=== PATIENT | female | born 1990 | race Caucasian/White ===

== ENCOUNTER 2016-12-29 20:45 | Emergency (ER) | payer MEDICAID ==
[~2016-12-29] VITALS: Ht 165.1 cm; Wt 62.0 kg
[~2016-12-29 20:45] MED LIST: ACET-1757 PO; ALBU8.5H3 INH; AMLO5TAB2 PO; AMLO5TAB4 PO; CLON2TAB2 PO; CYAN10005 PO; DULO60CA7 PO; FAMO-79 PO; FLUO20CA19 PO; FOLI-17 PO; FURO40TA6 PO; HYDR50CA PO; LACT20SO2 PO; LIDO700A5 TD; LISI-466 PO; LISI40TA PO; LORA-446 PO; MAG355OR15 PO; MAGN400T26 PO; MILK140C PO; MOME110A INH; MULT1TAB60 PO; NICO1PAT4 TD; ONDA4TAB10 PO; ONDA4TAB13 PO; OXYC-223 PO; OXYC1TAB8 PO; OXYC5TAB3 PO; PANT40TA3 PO; PANT40TA5 PO; PHOS250T3 PO; POTA20TA14 PO; SPIR100T PO; SUCR1TAB26 PO; THIA100T6 PO; TRAZ100T15 PO; TRAZ50TA18 PO; VITAMIN E PO; ZINC220C5 PO
[2016-12-29] MEDS ORDERED: ONDANSETRON 2MG/ML, 2ML IVPush ONE (21:00)
[2016-12-29] MEDS ORDERED: SODIUM CHLORIDE 0.9% 1,000ML IVBOLUS ONE ×2 (21:00→21:30)
[2016-12-29] MEDS ORDERED: FAMOTIDINE 20 MG/2 ML IVP ONE (21:00)
[2016-12-29] MEDS ORDERED: ONDANSETRON 2MG/ML, 2ML ONE (21:09)
[2016-12-29] MEDS ORDERED: FAMOTIDINE 20 MG/2 ML ONE (21:09)
[2016-12-29 21:17] LABS: HEMOGLOBIN 11.7 g/dL (11.7-16.4)
[2016-12-29 21:30] LABS: ASPARTATE AMINO TRANSFERASE 193 U/L (15-37); BLOOD UREA NITROGEN 5 mg/dL (7-18)
[2016-12-29] MEDS ORDERED: LORazepam 2 MG/ML, 1ML IVPush ONE (21:30)
[2016-12-29] MEDS ORDERED: MORPHINE SULFATE 4 MG/ML, 1ML IVPush PRN (21:30)
[2016-12-29] MEDS ORDERED: MORPHINE SULFATE 4 MG/ML, 1ML ONE (21:40)
[2016-12-29] MEDS ORDERED: LORazepam 2 MG/ML, 1ML ONE (21:41)
[2016-12-29] MEDS ORDERED: MAALOX/HYOSCYAMINE/LIDOCAINE 45 ML BOTTLE ONE (22:28)
[2016-12-29] MEDS ORDERED: MAALOX/HYOSCYAMINE/LIDOCAINE 45 ML BOTTLE PO ONE (22:30)
[2016-12-29 23:41] VITALS: BP 118/67
== END 2016-12-29 23:42 | disposition home or self-care (01) ==
LOC: ED 23:26
DX: K29.20 Alcoholic gastritis without bleeding (principal); F10.220 Alcohol dependence with intoxication, uncomplicated; E80.6 Other disorders of bilirubin metabolism; R74.9 Abnormal serum enzyme level, unspecified; I10 Essential (primary) hypertension; F10.20 Alcohol dependence, uncomplicated; Z90.49 Acquired absence of other specified parts of digestive tract
CPT/HCPCS: 36415; 80053; 80307; 81001; 83690; 84703; 85025; 96361; 96374; 96375; 99285; J2060; J2405; J7030; S0028

== ENCOUNTER 2017-01-17 13:15 | Inpatient (IN) | payer MEDICAID ==
[~2017-01-17] VITALS: Ht 165.1 cm; Wt 67.9 kg
[2017-01-17] MEDS ORDERED: SODIUM CHLORIDE 0.9% 1,000 ML IV ONE (13:50)
[2017-01-17] MEDS ORDERED: ONDANSETRON 2MG/ML, 2ML ONE ×3 (13:55→17:48)
[2017-01-17] MEDS ORDERED: LORazepam 2 MG/ML, 1ML ONE (13:56)
[2017-01-17] MEDS ORDERED: HYDR25CA PO (13:58)
[2017-01-17] MEDS ORDERED: HYDROmorphone 1 MG/ML, 1ML IV ONE ×3 (14:00→20:00)
[2017-01-17] MEDS ORDERED: LORazepam 2 MG/ML, 1ML IVPush ONE (14:00)
[2017-01-17] MEDS ORDERED: SODIUM CHLORIDE FLUSH 10ML SYR IVF ONE (14:00)
[2017-01-17] MEDS ORDERED: ONDANSETRON 2MG/ML, 2ML IVPush ONE ×2 (14:00→15:30)
[2017-01-17 14:35] LABS: BLOOD UREA NITROGEN 4 mg/dL (7-18)
[2017-01-17] MEDS ORDERED: HYDROmorphone 1 MG/ML, 1ML ONE ×3 (14:36→19:05)
[2017-01-17 14:41] LABS: ASPARTATE AMINO TRANSFERASE 395 U/L (15-37)
[2017-01-17 14:56] LABS: ANISOCYTOSIS 1+; MICROCYTOSIS 1+
[2017-01-17 16:05] LABS: HCG UR OBC PASS
[2017-01-17] MEDS ORDERED: LIDOCAINE 1%, 20ML ONE (17:45)
[2017-01-17] MEDS ORDERED: SODIUM BICARBONATE 4.2%, 5ML ONE (17:45)
[2017-01-17] MEDS ORDERED: OMNIPAQUE 350 MG/ML, 100ML BOTTLE ONE (18:52)
[2017-01-17] MEDS ORDERED: METRONIDAZOLE PMX 500MG/100ML 100 ML ONE (18:53)
[2017-01-17] MEDS ORDERED: CIPROFLOXACIN/PMX 400MG/200ML 200 ML ONE (18:53)
[2017-01-17] MEDS ORDERED: CIPROFLOXACIN/PMX 400MG/200ML 200 ML IV ONE (19:00)
[2017-01-17] MEDS ORDERED: METHYLNALTREXONE 12 MG/0.6 ML SQ ONE (19:00)
[2017-01-17] MEDS ORDERED: METRONIDAZOLE PMX 500MG/100ML 100 ML IV ONE (19:00)
[2017-01-17] MEDS: ALBUTEROL SULFATE 2.5 MG/3 ML NPPB SCH (21:00)
[2017-01-17] MEDS: ONDANSETRON 2MG/ML, 2ML IVP PRN (23:13)
[2017-01-17] MEDS: SODIUM CHLORIDE 0.9% 1,000 ML IV SCH (23:14)
[2017-01-17] MEDS: MORPHINE SULFATE 4 MG/ML, 1ML IVPush PRN (23:14)
[2017-01-17] MEDS: CEFTRIAXONE PMX 1GM/50ML 50 ML IV SCH (23:14)
[2017-01-17] MEDS: FUROSEMIDE 40 MG TABLET PO SCH (23:15)
[2017-01-17] MEDS: MAGNESIUM OXIDE 400 MG TABLET PO SCH (23:15)
[2017-01-17] MEDS: NICOTINE 14MG/24 HR PATCH.TD24 TD SCH (23:16)
[2017-01-18] MEDS: METRONIDAZOLE PMX 500MG/100ML 100 ML IV SCH ×4 (00:01→23:46)
[2017-01-18 02:00] VITALS: BP 114/66
[2017-01-18] MEDS: MORPHINE SULFATE 4 MG/ML, 1ML IVPush PRN ×3 (02:57→09:58)
[2017-01-18 06:06] LABS: BLOOD UREA NITROGEN 3 mg/dL (7-18)
[2017-01-18 06:11] LABS: ASPARTATE AMINO TRANSFERASE 318 U/L (15-37)
[2017-01-18] MEDS: ONDANSETRON 2MG/ML, 2ML IVP PRN ×3 (06:28→19:17)
[2017-01-18 06:55] VITALS: BP 113/66
[2017-01-18] MEDS: FLUTICASONE FUROATE 100MCG/INH INH SCH (09:00)
[2017-01-18] MEDS: PROMETHAZINE 25 MG/ML, 1ML IM PRN ×2 (09:58→18:02)
[2017-01-18] MEDS: SPIRONOLACTONE 100 MG TABLET PO SCH (10:30)
[2017-01-18] MEDS: ZINC SULFATE 220 MG CAPSULE PO SCH (10:30)
[2017-01-18] MEDS: FOLIC ACID 1 MG TABLET PO SCH (10:30)
[2017-01-18] MEDS: CYANOCOBALAMIN 1,000 MCG TABLET PO SCH (10:31)
[2017-01-18] MEDS: SODIUM CHLORIDE 0.9% 1,000 ML IV SCH ×2 (10:31→20:10)
[2017-01-18] MEDS: FUROSEMIDE 40 MG TABLET PO SCH (10:31)
[2017-01-18] MEDS: THIAMINE 100MG TABLET PO SCH (10:31)
[2017-01-18] MEDS: MULTIVITAMIN 1 TABLET PO SCH (10:31)
[2017-01-18] MEDS: POTASSIUM CHLORIDE 20 MEQ TAB.ER.PRT PO SCH (10:31)
[2017-01-18] MEDS: MAGNESIUM OXIDE 400 MG TABLET PO SCH ×2 (10:31→20:09)
[2017-01-18] MEDS: SENNA/DOCUSATE TABLET PO SCH (10:31)
[2017-01-18] MEDS: BISACODYL 10 MG SUPP PR SCH (10:32)
[2017-01-18] MEDS: CEFTRIAXONE PMX 1GM/50ML 50 ML IV SCH ×2 (11:09→22:59)
[2017-01-18] MEDS: POTASSIUM CHLORIDE 20 MEQ, MAGNESIUM SULFATE 1 GM, FOLIC ACID 1 MG, THIAMINE 100 MG, MV... IV SCH (11:09)
[2017-01-18] MEDS: D5%-0.9% NACL+KCL 20MEQ 1,000 ML IV SCH ×3 (13:05→22:59)
[2017-01-18] MEDS: HYDROmorphone 2 MG/ML, 1ML IVPush PRN ×4 (13:09→22:17)
[2017-01-18 13:35] VITALS: BP 121/76
[2017-01-18 19:20] VITALS: BP 126/80
[2017-01-18] MEDS: NICOTINE 14MG/24 HR PATCH.TD24 TD SCH (20:09)
[2017-01-19] MEDS: ONDANSETRON 2MG/ML, 2ML IVP PRN ×3 (01:08→13:22)
[2017-01-19] MEDS: HYDROmorphone 2 MG/ML, 1ML IVPush PRN ×8 (01:08→22:36)
[2017-01-19 02:41] VITALS: BP 120/76
[2017-01-19 05:19] LABS: ASPARTATE AMINO TRANSFERASE 262 U/L (15-37); BLOOD UREA NITROGEN 3 mg/dL (7-18)
[2017-01-19] MEDS: FLUTICASONE FUROATE 100MCG/INH INH SCH (08:25)
[2017-01-19 08:26] VITALS: BP 126/88
[2017-01-19] MEDS: MAGNESIUM OXIDE 400 MG TABLET PO SCH ×2 (08:30→20:26)
[2017-01-19] MEDS: METRONIDAZOLE PMX 500MG/100ML 100 ML IV SCH ×2 (08:30→16:30)
[2017-01-19] MEDS: ZINC SULFATE 220 MG CAPSULE PO SCH (08:30)
[2017-01-19] MEDS: POTASSIUM CHLORIDE 20 MEQ TAB.ER.PRT PO SCH (08:30)
[2017-01-19] MEDS: SPIRONOLACTONE 100 MG TABLET PO SCH (08:30)
[2017-01-19] MEDS: FOLIC ACID 1 MG TABLET PO SCH (08:30)
[2017-01-19] MEDS: FUROSEMIDE 40 MG TABLET PO SCH ×2 (08:30→20:26)
[2017-01-19] MEDS: MULTIVITAMIN 1 TABLET PO SCH (08:31)
[2017-01-19] MEDS: CYANOCOBALAMIN 1,000 MCG TABLET PO SCH (08:31)
[2017-01-19] MEDS: THIAMINE 100MG TABLET PO SCH (08:31)
[2017-01-19] MEDS: SENNA/DOCUSATE TABLET PO SCH (08:31)
[2017-01-19] MEDS: BISACODYL 10 MG SUPP PR SCH (08:33)
[2017-01-19] MEDS ORDERED: FUROSEMIDE 40 MG TABLET PO SCH (09:00)
[2017-01-19] MEDS: CEFTRIAXONE PMX 1GM/50ML 50 ML IV SCH (11:31)
[2017-01-19] MEDS: POTASSIUM CHLORIDE 20 MEQ, MAGNESIUM SULFATE 1 GM, FOLIC ACID 1 MG, THIAMINE 100 MG, MV... IV SCH (12:08)
[2017-01-19 15:37] VITALS: BP 135/87
[2017-01-19 16:14] VITALS: BP 135/87
[2017-01-19] MEDS: D5%-0.9% NACL+KCL 20MEQ 1,000 ML IV SCH (16:30)
[2017-01-19] MEDS: NICOTINE 14MG/24 HR PATCH.TD24 TD SCH (19:43)
[2017-01-19 20:06] VITALS: BP 124/86
[2017-01-19] MEDS: POLYETHYLENE GLYCOL 17 GM PACKET PO PRN (22:35)
[2017-01-20] MEDS: CEFTRIAXONE PMX 1GM/50ML 50 ML IV SCH ×3 (00:19→23:53)
[2017-01-20] MEDS: ONDANSETRON 2MG/ML, 2ML IVP PRN ×4 (00:23→18:55)
[2017-01-20] MEDS: METRONIDAZOLE PMX 500MG/100ML 100 ML IV SCH ×3 (00:51→15:46)
[2017-01-20] MEDS: HYDROmorphone 2 MG/ML, 1ML IVPush PRN ×7 (02:06→22:20)
[2017-01-20 02:52] VITALS: BP 122/77
[2017-01-20 06:22] VITALS: BP 108/71
[2017-01-20] MEDS: ALBUTEROL SULFATE 2.5 MG/3 ML NPPB SCH ×5 (07:45→21:00)
[2017-01-20 08:43] LABS: ASPARTATE AMINO TRANSFERASE 229 U/L (15-37); BLOOD UREA NITROGEN 1 mg/dL (7-18)
[2017-01-20] MEDS: SENNA/DOCUSATE TABLET PO SCH (09:17)
[2017-01-20] MEDS: MULTIVITAMIN 1 TABLET PO SCH (09:18)
[2017-01-20] MEDS: SPIRONOLACTONE 100 MG TABLET PO SCH (09:19)
[2017-01-20] MEDS: MAGNESIUM OXIDE 400 MG TABLET PO SCH ×2 (09:19→21:24)
[2017-01-20] MEDS: ZINC SULFATE 220 MG CAPSULE PO SCH (09:20)
[2017-01-20] MEDS: POTASSIUM CHLORIDE 20 MEQ TAB.ER.PRT PO SCH (09:20)
[2017-01-20] MEDS: FUROSEMIDE 40 MG TABLET PO SCH ×2 (09:20→21:24)
[2017-01-20] MEDS: FOLIC ACID 1 MG TABLET PO SCH (09:21)
[2017-01-20] MEDS: THIAMINE 100MG TABLET PO SCH (09:21)
[2017-01-20] MEDS: CYANOCOBALAMIN 1,000 MCG TABLET PO SCH (09:22)
[2017-01-20] MEDS: FLUTICASONE FUROATE 100MCG/INH INH SCH (09:29)
[2017-01-20] MEDS: BISACODYL 10 MG SUPP PR SCH (09:29)
[2017-01-20] MEDS: POTASSIUM CHLORIDE 20 MEQ, MAGNESIUM SULFATE 1 GM, FOLIC ACID 1 MG, THIAMINE 100 MG, MV... IV SCH (11:52)
[2017-01-20 12:09] VITALS: BP 116/76
[2017-01-20 12:15] VITALS: BP 154/81
[2017-01-20] MEDS: PROMETHAZINE 25 MG/ML, 1ML IM PRN (18:00)
[2017-01-20 20:22] VITALS: BP 121/74
[2017-01-20] MEDS: NICOTINE 14MG/24 HR PATCH.TD24 TD SCH (21:23)
[2017-01-21] MEDS: METRONIDAZOLE PMX 500MG/100ML 100 ML IV SCH ×4 (00:26→15:30)
[2017-01-21] MEDS: HYDROmorphone 2 MG/ML, 1ML IVPush PRN ×8 (01:33→23:25)
[2017-01-21] MEDS: ONDANSETRON 2MG/ML, 2ML IVP PRN ×3 (01:33→13:44)
[2017-01-21 03:09] VITALS: BP 115/70
[2017-01-21] MEDS: ALBUTEROL SULFATE 2.5 MG/3 ML NPPB SCH ×4 (06:05→21:00)
[2017-01-21 06:23] LABS: ASPARTATE AMINO TRANSFERASE 180 U/L (15-37); BLOOD UREA NITROGEN 1 mg/dL (7-18)
[2017-01-21 06:38] VITALS: BP 110/67
[2017-01-21] MEDS: MULTIVITAMIN 1 TABLET PO SCH (08:17)
[2017-01-21] MEDS: ZINC SULFATE 220 MG CAPSULE PO SCH (08:18)
[2017-01-21] MEDS: FUROSEMIDE 40 MG TABLET PO SCH ×2 (08:19→23:25)
[2017-01-21] MEDS: POTASSIUM CHLORIDE 20 MEQ TAB.ER.PRT PO SCH (08:19)
[2017-01-21] MEDS: MAGNESIUM OXIDE 400 MG TABLET PO SCH ×2 (08:19→23:25)
[2017-01-21] MEDS: THIAMINE 100MG TABLET PO SCH (08:19)
[2017-01-21] MEDS: FOLIC ACID 1 MG TABLET PO SCH (08:20)
[2017-01-21] MEDS: SPIRONOLACTONE 100 MG TABLET PO SCH (08:20)
[2017-01-21] MEDS: CYANOCOBALAMIN 1,000 MCG TABLET PO SCH (08:20)
[2017-01-21] MEDS: SENNA/DOCUSATE TABLET PO SCH (08:20)
[2017-01-21] MEDS: FLUTICASONE FUROATE 100MCG/INH INH SCH (08:21)
[2017-01-21] MEDS: BISACODYL 10 MG SUPP PR SCH (08:21)
[2017-01-21] MEDS: PROMETHAZINE 25 MG/ML, 1ML IM PRN (10:49)
[2017-01-21] MEDS: CEFTRIAXONE PMX 1GM/50ML 50 ML IV SCH ×2 (11:45→23:26)
[2017-01-21 12:40] VITALS: BP 127/77
[2017-01-21 19:23] VITALS: BP 125/77
[2017-01-21] MEDS: NICOTINE 14MG/24 HR PATCH.TD24 TD SCH (20:18)
[2017-01-22] MEDS: METRONIDAZOLE PMX 500MG/100ML 100 ML IV SCH ×5 (00:43→23:09)
[2017-01-22] MEDS ORDERED: TRAZODONE 50MG TABLET PO PRN (02:30)
[2017-01-22 02:31] VITALS: BP 147/88
[2017-01-22] MEDS: HYDROmorphone 2 MG/ML, 1ML IVPush PRN ×7 (02:40→23:09)
[2017-01-22] MEDS: ONDANSETRON 2MG/ML, 2ML IVP PRN ×2 (02:46→17:07)
[2017-01-22 05:32] LABS: BLOOD UREA NITROGEN 3 mg/dL (7-18)
[2017-01-22] MEDS: ALBUTEROL SULFATE 2.5 MG/3 ML NPPB SCH ×4 (06:00→21:00)
[2017-01-22 06:31] VITALS: BP 119/74
[2017-01-22] MEDS: FLUTICASONE FUROATE 100MCG/INH INH SCH (08:40)
[2017-01-22] MEDS: ZINC SULFATE 220 MG CAPSULE PO SCH (08:40)
[2017-01-22] MEDS: MULTIVITAMIN 1 TABLET PO SCH (08:41)
[2017-01-22] MEDS: FUROSEMIDE 40 MG TABLET PO SCH ×2 (08:41→20:50)
[2017-01-22] MEDS: POTASSIUM CHLORIDE 20 MEQ TAB.ER.PRT PO SCH (08:41)
[2017-01-22] MEDS: FOLIC ACID 1 MG TABLET PO SCH (08:41)
[2017-01-22] MEDS: SPIRONOLACTONE 100 MG TABLET PO SCH (08:41)
[2017-01-22] MEDS: MAGNESIUM OXIDE 400 MG TABLET PO SCH ×2 (08:41→20:50)
[2017-01-22] MEDS: THIAMINE 100MG TABLET PO SCH (08:42)
[2017-01-22] MEDS: SENNA/DOCUSATE TABLET PO SCH (08:42)
[2017-01-22] MEDS: BISACODYL 10 MG SUPP PR SCH (08:42)
[2017-01-22 09:01] LABS: BLOOD UREA NITROGEN 5 mg/dL (7-18)
[2017-01-22 09:04] LABS: ASPARTATE AMINO TRANSFERASE 148 U/L (15-37)
[2017-01-22] MEDS: CYANOCOBALAMIN 1,000 MCG TABLET PO SCH (09:05)
[2017-01-22] MEDS: hydrOXyzine 50MG TABLET PO SCH ×3 (09:08→20:50)
[2017-01-22] MEDS: CEFTRIAXONE PMX 1GM/50ML 50 ML IV SCH (12:02)
[2017-01-22 13:13] VITALS: BP 122/70
[2017-01-22] MEDS ORDERED: GADOBUTROL 10 MMOL/10 ML VIAL ONE (16:10)
[2017-01-22 18:48] VITALS: BP 126/78
[2017-01-22] MEDS: NICOTINE 14MG/24 HR PATCH.TD24 TD SCH (20:50)
[2017-01-22] MEDS: PROMETHAZINE 25 MG/ML, 1ML IM PRN (22:37)
[2017-01-23] MEDS: CEFTRIAXONE PMX 1GM/50ML 50 ML IV SCH ×2 (00:23→12:45)
[2017-01-23] MEDS: ONDANSETRON 2MG/ML, 2ML IVP PRN ×2 (00:29→14:04)
[2017-01-23 01:37] VITALS: BP 110/65
[2017-01-23] MEDS: HYDROmorphone 2 MG/ML, 1ML IVPush PRN ×5 (02:15→15:44)
[2017-01-23 05:24] LABS: BLOOD UREA NITROGEN 7 mg/dL (7-18)
[2017-01-23 05:28] LABS: ASPARTATE AMINO TRANSFERASE 110 U/L (15-37)
[2017-01-23] MEDS: ALBUTEROL SULFATE 2.5 MG/3 ML NPPB SCH ×3 (06:00→16:00)
[2017-01-23 07:01] VITALS: BP 106/71
[2017-01-23] MEDS: METRONIDAZOLE PMX 500MG/100ML 100 ML IV SCH ×2 (07:49→16:00)
[2017-01-23] MEDS: FLUTICASONE FUROATE 100MCG/INH INH SCH (07:49)
[2017-01-23] MEDS: SPIRONOLACTONE 100 MG TABLET PO SCH (07:52)
[2017-01-23] MEDS: hydrOXyzine 50MG TABLET PO SCH ×2 (07:52→15:47)
[2017-01-23] MEDS: POTASSIUM CHLORIDE 20 MEQ TAB.ER.PRT PO SCH (07:53)
[2017-01-23] MEDS: CYANOCOBALAMIN 1,000 MCG TABLET PO SCH (07:53)
[2017-01-23] MEDS: MULTIVITAMIN 1 TABLET PO SCH (07:53)
[2017-01-23] MEDS: FUROSEMIDE 40 MG TABLET PO SCH (07:53)
[2017-01-23] MEDS: THIAMINE 100MG TABLET PO SCH (07:53)
[2017-01-23] MEDS: FOLIC ACID 1 MG TABLET PO SCH (07:53)
[2017-01-23] MEDS: MAGNESIUM OXIDE 400 MG TABLET PO SCH (07:53)
[2017-01-23] MEDS: SENNA/DOCUSATE TABLET PO SCH (07:53)
[2017-01-23] MEDS: ZINC SULFATE 220 MG CAPSULE PO SCH (08:00)
[2017-01-23] MEDS: POLYETHYLENE GLYCOL 17 GM PACKET PO PRN (08:20)
[2017-01-23] MEDS ORDERED: CEFD300C2 PO (08:43)
[2017-01-23] MEDS ORDERED: METR500T PO (08:43)
[2017-01-23] MEDS: BISACODYL 10 MG SUPP PR SCH (09:00)
[2017-01-23 13:19] VITALS: BP 120/73
[2017-01-23] MEDS ORDERED: PNEUMOCOCCAL 23 VACCINE IM-VACC ONE (14:00)
== END 2017-01-23 16:45 | disposition home or self-care (01) | DRG 371 ==
LOC: ED 14:17 → EDIP 18:41 → 4NOR 19:40
PROVIDERS: ADMIT Internal Medicine; ATTEND Internal Medicine
PROC: 0W9G3ZX Drainage of Peritoneal Cavity, Percutaneous Approach, Diagnostic (ICD-10-PCS; principal; 2017-01-17)
PROC: 0T9B70Z Drainage of Bladder with Drainage Device, Via Natural or Artificial Opening (ICD-10-PCS; 2017-01-17)
DX: K65.2 Spontaneous bacterial peritonitis (principal); E43 Unspecified severe protein-calorie malnutrition; K76.6 Portal hypertension; D68.9 Coagulation defect, unspecified; A09 Infectious gastroenteritis and colitis, unspecified; K72.90 Hepatic failure, unspecified without coma; D64.9 Anemia, unspecified; I10 Essential (primary) hypertension; K70.11 Alcoholic hepatitis with ascites; F41.9 Anxiety disorder, unspecified; F32.9 Major depressive disorder, single episode, unspecified; K21.9 Gastro-esophageal reflux disease without esophagitis; F17.210 Nicotine dependence, cigarettes, uncomplicated; F12.10 Cannabis abuse, uncomplicated; D69.6 Thrombocytopenia, unspecified; K74.60 Unspecified cirrhosis of liver; F10.20 Alcohol dependence, uncomplicated; R16.1 Splenomegaly, not elsewhere classified; Z90.49 Acquired absence of other specified parts of digestive tract; Z71.41 Alcohol abuse counseling and surveillance of alcoholic
CPT/HCPCS: 36415; 49083; 74177; 74183; 80048; 80053; 81001; 81025; 82042; 82140; 82247; 82248; 83010; 83615; 83690; 83735; 84439; 84443; 85025; 85610; 85730; 87070; 87205; 89051; 96361; 96365; 96372; 96375; 96376; A9585; J0696; J0744; J1170; J2405; J2550; J3411; J3475; J3480; J3490; J7042; Q9967; J2060; J7030; Q0177

== ENCOUNTER 2017-01-27 21:36 | Inpatient (IN) | payer MEDICAID ==
[~2017-01-27] VITALS: Ht 165.1 cm; Wt 66.8 kg
[~2017-01-27 21:36] MED LIST changes: +CEFD300C37 PO; +HYDR25CA PO; +LACT20SO13 PO; -LACT20SO2 PO; +METR500T PO
[2017-01-27 22:40] LABS: ASPARTATE AMINO TRANSFERASE 336 U/L (15-37); BLOOD UREA NITROGEN 6 mg/dL (7-18)
[2017-01-27] MEDS ORDERED: METRONIDAZOLE PMX 500MG/100ML 100 ML IV ONE (23:00)
[2017-01-27] MEDS ORDERED: MORPHINE SULFATE 4 MG/ML, 1ML IVPush PRN (23:00)
[2017-01-27] MEDS ORDERED: CEFTRIAXONE PMX 2GM/50ML 50 ML IV ONE (23:00)
[2017-01-27 23:03] LABS: DIFF TOTAL CELLS COUNTED 100 CELL DIFF
[2017-01-27 23:06] LABS: ANISOCYTOSIS 1+; VERIFY COUNTS? YES
[2017-01-27 23:08] LABS: POIKILOCYTOSIS 1+
[2017-01-27] MEDS ORDERED: METRONIDAZOLE PMX 500MG/100ML 100 ML ONE (23:08)
[2017-01-27] MEDS ORDERED: CEFTRIAXONE PMX 2GM/50ML 50 ML ONE (23:08)
[2017-01-27] MEDS ORDERED: ONDANSETRON 2MG/ML, 2ML IVPush ONE (23:30)
[2017-01-27] MEDS ORDERED: ONDANSETRON 2MG/ML, 2ML ONE (23:31)
[2017-01-28] MEDS ORDERED: MORPHINE SULFATE 4 MG/ML, 1ML ONE (00:18)
[2017-01-28 01:56] VITALS: BP 112/70
[2017-01-28] MEDS: SODIUM CHLORIDE 0.9% 1,000 ML IV SCH ×2 (02:03→08:12)
[2017-01-28] MEDS ORDERED: BISACODYL 10 MG SUPP PR PRN (02:30)
[2017-01-28] MEDS ORDERED: LABETALOL 5MG/ML, 20ML IV PRN (02:30)
[2017-01-28] MEDS ORDERED: DOCUSATE 100 MG CAPSULE PO PRN (02:30)
[2017-01-28] MEDS ORDERED: POLYETHYLENE GLYCOL 17 GM PACKET PO PRN (02:30)
[2017-01-28] MEDS ORDERED: TRAZODONE 50MG TABLET PO PRN (02:30)
[2017-01-28] MEDS: MORPHINE SULFATE 4 MG/ML, 1ML IVPush PRN ×4 (02:43→20:42)
[2017-01-28] MEDS: ENOXAPARIN 40 MG/0.4 ML SQ SCH (03:05)
[2017-01-28] MEDS: NICOTINE 14MG/24 HR PATCH.TD24 TD SCH (03:06)
[2017-01-28] MEDS: POTASSIUM CHLORIDE 20 MEQ, MAGNESIUM SULFATE 2 GM, THIAMINE 100 MG, MVI ADULT 10 ML, FO... IV SCH ×2 (03:35→15:46)
[2017-01-28] MEDS: PROCHLORPERAZINE 5 MG/ML, 2ML IVPush PRN ×2 (03:41→09:49)
[2017-01-28 05:32] LABS: ASPARTATE AMINO TRANSFERASE 290 U/L (15-37); BLOOD UREA NITROGEN 5 mg/dL (7-18)
[2017-01-28 06:02] LABS: DIFF TOTAL CELLS COUNTED 100 CELL DIFF
[2017-01-28 06:04] LABS: ANISOCYTOSIS 1+; VERIFY COUNTS? YES
[2017-01-28 06:05] LABS: POIKILOCYTOSIS 1+
[2017-01-28] MEDS: METRONIDAZOLE PMX 500MG/100ML 100 ML IV SCH ×2 (07:56→16:06)
[2017-01-28] MEDS: ZINC SULFATE 220 MG CAPSULE PO SCH (07:56)
[2017-01-28 08:01] VITALS: BP 119/64
[2017-01-28] MEDS: FOLIC ACID 1 MG TABLET PO SCH (08:10)
[2017-01-28] MEDS: LACTULOSE 10 GM/15 ML UDC PO SCH ×3 (08:10→20:46)
[2017-01-28] MEDS: SPIRONOLACTONE 100 MG TABLET PO SCH (08:10)
[2017-01-28] MEDS: CYANOCOBALAMIN 1,000 MCG TABLET PO SCH (08:11)
[2017-01-28] MEDS: FUROSEMIDE 40 MG TABLET PO SCH ×2 (08:11→20:45)
[2017-01-28] MEDS: MAGNESIUM OXIDE 400 MG TABLET PO SCH ×2 (08:11→20:45)
[2017-01-28] MEDS: MULTIVITAMIN 1 TABLET PO SCH (08:11)
[2017-01-28] MEDS: THIAMINE 100MG TABLET PO SCH (08:11)
[2017-01-28] MEDS: ONDANSETRON 2MG/ML, 2ML IVP PRN ×2 (08:13→15:33)
[2017-01-28] MEDS ORDERED: MOMETASONE FUROATE INH SCH (09:00)
[2017-01-28 10:05] LABS: HCG UR OBC PASS
[2017-01-28] MEDS: RIFAXIMIN 550 MG TABLET PO SCH ×2 (12:44→20:46)
[2017-01-28] MEDS: FLUTICASONE FUROATE 200MCG/INH INH SCH (15:33)
[2017-01-28 15:53] VITALS: BP 114/67
[2017-01-28 16:46] VITALS: BP 117/68
[2017-01-28] MEDS ORDERED: LORazepam 0.5MG TABLET PO PRN (17:30)
[2017-01-28] MEDS ORDERED: LORazepam 1MG TABLET PO PRN ×4 (17:30)
[2017-01-28] MEDS ORDERED: LORazepam 2 MG/ML, 1ML IV PRN ×3 (17:30)
[2017-01-28] MEDS ORDERED: LORazepam 2 MG/ML, 1ML ONE (17:43)
[2017-01-28 19:03] VITALS: BP 112/68
[2017-01-28] MEDS: LORazepam 2 MG/ML, 1ML IV PRN (20:42)
[2017-01-28] MEDS: CEFTRIAXONE PMX 2GM/50ML 50 ML IV SCH (23:50)
[2017-01-29] MEDS: METRONIDAZOLE PMX 500MG/100ML 100 ML IV SCH ×3 (00:38→15:49)
[2017-01-29 01:14] VITALS: BP 108/63
[2017-01-29] MEDS ORDERED: POTASSIUM CHLORIDE 20 MEQ, MAGNESIUM SULFATE 2 GM, THIAMINE 100 MG, MVI ADULT 10 ML, FO... IV SCH ×2 (02:30→03:00)
[2017-01-29] MEDS: NICOTINE 14MG/24 HR PATCH.TD24 TD SCH (03:03)
[2017-01-29] MEDS: MORPHINE SULFATE 4 MG/ML, 1ML IVPush PRN ×4 (03:15→21:47)
[2017-01-29] MEDS: LORazepam 2 MG/ML, 1ML IV PRN ×4 (03:15→18:31)
[2017-01-29] MEDS: ENOXAPARIN 40 MG/0.4 ML SQ SCH (03:15)
[2017-01-29 05:59] LABS: BLOOD UREA NITROGEN 3 mg/dL (7-18)
[2017-01-29 06:09] LABS: ASPARTATE AMINO TRANSFERASE 271 U/L (15-37)
[2017-01-29 06:43] LABS: DIFF TOTAL CELLS COUNTED 100 CELL DIFF
[2017-01-29 06:45] LABS: ANISOCYTOSIS 1+; POIKILOCYTOSIS 1+; VERIFY COUNTS? YES
[2017-01-29 06:46] LABS: LARGE PLATELETS 1+; OVALOCYTES 1+
[2017-01-29 07:15] VITALS: BP 118/76
[2017-01-29] MEDS: FOLIC ACID 1 MG TABLET PO SCH ×2 (09:00→10:36)
[2017-01-29] MEDS: THIAMINE 100MG TABLET PO SCH ×2 (09:00→10:36)
[2017-01-29] MEDS: FLUTICASONE FUROATE 200MCG/INH INH SCH (09:37)
[2017-01-29] MEDS: LACTULOSE 10 GM/15 ML UDC PO SCH ×3 (10:35→22:19)
[2017-01-29] MEDS: RIFAXIMIN 550 MG TABLET PO SCH ×2 (10:35→22:19)
[2017-01-29] MEDS: MULTIVITAMIN 1 TABLET PO SCH (10:35)
[2017-01-29] MEDS: FUROSEMIDE 40 MG TABLET PO SCH ×2 (10:35→22:53)
[2017-01-29] MEDS: SPIRONOLACTONE 100 MG TABLET PO SCH (10:36)
[2017-01-29] MEDS: MAGNESIUM OXIDE 400 MG TABLET PO SCH ×2 (10:36→22:19)
[2017-01-29] MEDS: ZINC SULFATE 220 MG CAPSULE PO SCH (10:36)
[2017-01-29] MEDS: CYANOCOBALAMIN 1,000 MCG TABLET PO SCH (10:38)
[2017-01-29 12:49] VITALS: BP 133/81
[2017-01-29 13:14] LABS: DAU SCREEN DISCLAIMER
[2017-01-29] MEDS: ONDANSETRON 2MG/ML, 2ML IVP PRN (15:49)
[2017-01-29 20:00] VITALS: BP 116/72
[2017-01-29] MEDS: CEFTRIAXONE PMX 2GM/50ML 50 ML IV SCH (23:44)
[2017-01-30] MEDS: METRONIDAZOLE PMX 500MG/100ML 100 ML IV SCH ×3 (00:16→16:16)
[2017-01-30] MEDS: ENOXAPARIN 40 MG/0.4 ML SQ SCH (01:49)
[2017-01-30] MEDS: NICOTINE 14MG/24 HR PATCH.TD24 TD SCH ×2 (01:54→20:13)
[2017-01-30 02:00] VITALS: BP 110/68
[2017-01-30] MEDS: LORazepam 2 MG/ML, 1ML IV PRN ×2 (02:08→06:54)
[2017-01-30] MEDS: MORPHINE SULFATE 4 MG/ML, 1ML IVPush PRN ×4 (03:55→22:00)
[2017-01-30 06:23] LABS: BLOOD UREA NITROGEN 7 mg/dL (7-18)
[2017-01-30 06:26] LABS: ASPARTATE AMINO TRANSFERASE 192 U/L (15-37)
[2017-01-30] MEDS: ONDANSETRON 2MG/ML, 2ML IVP PRN (06:54)
[2017-01-30 08:18] VITALS: BP 125/80
[2017-01-30] MEDS: THIAMINE 100MG TABLET PO SCH ×2 (09:00→10:30)
[2017-01-30] MEDS: CYANOCOBALAMIN 1,000 MCG TABLET PO SCH (10:30)
[2017-01-30] MEDS: ZINC SULFATE 220 MG CAPSULE PO SCH (10:30)
[2017-01-30] MEDS: FLUTICASONE FUROATE 200MCG/INH INH SCH (10:30)
[2017-01-30] MEDS: FOLIC ACID 1 MG TABLET PO SCH (10:31)
[2017-01-30] MEDS: LACTULOSE 20 GM/30 ML UDC PO SCH ×3 (10:31→23:25)
[2017-01-30] MEDS: MAGNESIUM OXIDE 400 MG TABLET PO SCH ×2 (10:31→22:00)
[2017-01-30] MEDS: SPIRONOLACTONE 100 MG TABLET PO SCH (10:31)
[2017-01-30] MEDS: MULTIVITAMIN 1 TABLET PO SCH (10:31)
[2017-01-30] MEDS: RIFAXIMIN 550 MG TABLET PO SCH ×2 (10:31→22:00)
[2017-01-30] MEDS: FUROSEMIDE 40 MG TABLET PO SCH ×2 (10:31→22:00)
[2017-01-30] MEDS: LORazepam 1MG TABLET PO PRN ×2 (11:57→17:48)
[2017-01-30 14:11] VITALS: BP 119/75
[2017-01-30 18:35] VITALS: BP 123/81
[2017-01-30] MEDS: CEFTRIAXONE PMX 2GM/50ML 50 ML IV SCH (23:25)
[2017-01-31] MEDS: METRONIDAZOLE PMX 500MG/100ML 100 ML IV SCH ×2 (00:04→08:17)
[2017-01-31] MEDS: LORazepam 1MG TABLET PO PRN ×3 (00:05→11:45)
[2017-01-31 03:09] VITALS: BP 109/71
[2017-01-31] MEDS: ONDANSETRON 2MG/ML, 2ML IVP PRN ×2 (03:09→09:35)
[2017-01-31] MEDS: MORPHINE SULFATE 4 MG/ML, 1ML IVPush PRN ×3 (04:18→14:27)
[2017-01-31 05:43] LABS: BLOOD UREA NITROGEN 9 mg/dL (7-18)
[2017-01-31 07:45] VITALS: BP 121/76
[2017-01-31] MEDS: FOLIC ACID 1 MG TABLET PO SCH (08:17)
[2017-01-31] MEDS: ZINC SULFATE 220 MG CAPSULE PO SCH (08:17)
[2017-01-31] MEDS: RIFAXIMIN 550 MG TABLET PO SCH (08:17)
[2017-01-31] MEDS: MAGNESIUM OXIDE 400 MG TABLET PO SCH (08:17)
[2017-01-31] MEDS: LACTULOSE 20 GM/30 ML UDC PO SCH (08:17)
[2017-01-31] MEDS: FLUTICASONE FUROATE 200MCG/INH INH SCH (08:18)
[2017-01-31] MEDS: SPIRONOLACTONE 100 MG TABLET PO SCH (08:18)
[2017-01-31] MEDS: CYANOCOBALAMIN 1,000 MCG TABLET PO SCH (08:18)
[2017-01-31] MEDS: MULTIVITAMIN 1 TABLET PO SCH (08:18)
[2017-01-31] MEDS: FUROSEMIDE 40 MG TABLET PO SCH (08:18)
[2017-01-31] MEDS: THIAMINE 100MG TABLET PO SCH (08:18)
[2017-01-31 13:10] VITALS: BP 117/74
[2017-01-31] MEDS ORDERED: CIPR500T87 PO (14:16)
[2017-01-31] MEDS ORDERED: METR500T PO (14:16)
[2017-01-31 14:31] VITALS: BP 118/73
== END 2017-01-31 14:56 | disposition home or self-care (01) | DRG 371 ==
LOC: ED 01-28 00:49 → EDIP 01-28 01:06 → 4NOR 01-28 01:51
PROVIDERS: ADMIT Internal Medicine; ATTEND Internal Medicine
PROC: 0WJG3ZZ Inspection of Peritoneal Cavity, Percutaneous Approach (ICD-10-PCS; principal; 2017-01-28)
DX: K65.2 Spontaneous bacterial peritonitis (principal); E43 Unspecified severe protein-calorie malnutrition; E87.2 Acidosis; D68.4 Acquired coagulation factor deficiency; K76.6 Portal hypertension; D69.6 Thrombocytopenia, unspecified; G25.2 Other specified forms of tremor; K52.9 Noninfective gastroenteritis and colitis, unspecified; F41.9 Anxiety disorder, unspecified; F32.9 Major depressive disorder, single episode, unspecified; I10 Essential (primary) hypertension; K70.31 Alcoholic cirrhosis of liver with ascites; K70.40 Alcoholic hepatic failure without coma; K70.11 Alcoholic hepatitis with ascites; D53.9 Nutritional anemia, unspecified; R73.9 Hyperglycemia, unspecified; F10.229 Alcohol dependence with intoxication, unspecified; F12.10 Cannabis abuse, uncomplicated; F17.210 Nicotine dependence, cigarettes, uncomplicated; Z91.14 Patient's other noncompliance with medication regimen; Z90.49 Acquired absence of other specified parts of digestive tract; Z79.899 Other long term (current) drug therapy; Z68.24 Body mass index [BMI] 24.0-24.9, adult
CPT/HCPCS: 36415; 49083; 76700; 80048; 80053; 80307; 81001; 81025; 82040; 82140; 82247; 82248; 83605; 83690; 83735; 85025; 85610; 87086; 87324; 96365; 96367; 96375; J0696; J1650; J2405; J3411; J3475; J3480; J7042; J0780; J2060; Q0177

== ENCOUNTER 2017-02-27 10:21 | Inpatient (IN) | payer MEDICAID ==
[2017-02-27] VITALS (13 sets, daily range): BP systolic 105–118; BP diastolic 62–78
[~2017-02-27] VITALS: Ht 165.1 cm; Wt 69.1 kg
[~2017-02-27 10:21] MED LIST changes: +CIPR500T87 PO
[2017-02-27] MEDS ORDERED: DIAZEPAM 5 MG TABLET ONE (10:58)
[2017-02-27] MEDS ORDERED: KETOROLAC 30 MG/1 ML ONE (10:59)
[2017-02-27] MEDS ORDERED: ONDANSETRON ODT 4 MG ONE (10:59)
[2017-02-27] MEDS ORDERED: ONDANSETRON ODT 4 MG PO ONE (11:00)
[2017-02-27] MEDS ORDERED: KETOROLAC 30 MG/1 ML IM ONE (11:00)
[2017-02-27] MEDS ORDERED: DIAZEPAM 5 MG TABLET PO ONE (11:00)
[2017-02-27] MEDS ORDERED: SODIUM CHLORIDE 0.9% 1,000 ML IV ONE (11:10)
[2017-02-27] MEDS ORDERED: SODIUM CHLORIDE 0.9% 1,000ML IVBOLUS ONE ×2 (11:30→14:30)
[2017-02-27] MEDS ORDERED: HYDROcodone/APAP 5/325 TABLET PO ONE (11:30)
[2017-02-27 11:35] LABS: BLOOD UREA NITROGEN 9 mg/dL (7-18)
[2017-02-27 11:38] LABS: ASPARTATE AMINO TRANSFERASE 93 U/L (15-37)
[2017-02-27 12:33] LABS: DIFF TOTAL CELLS COUNTED 100 CELL DIFF
[2017-02-27 12:44] LABS: ANISOCYTOSIS 2+; VERIFY COUNTS? YES
[2017-02-27] MEDS ORDERED: HYDROcodone/APAP 5/325 TABLET ONE (12:44)
[2017-02-27] MEDS ORDERED: VANCOMYCIN PER PHARMACY MC ONE (14:30)
[2017-02-27] MEDS ORDERED: PIPERACILLIN/TAZO/PMX 4.5GM 100 ML IVPB ONE (14:30)
[2017-02-27] MEDS ORDERED: PHARMACOKINETIC CONSULTATION MC ONE (14:30)
[2017-02-27] MEDS ORDERED: VANCOMYCIN 1,300 MG in SODIUM CHLORIDE 0.9% 250 ML IV ONE (14:30)
[2017-02-27] MEDS ORDERED: GADOBUTROL 7.5 MMOL/7.5 ML PFS ONE (14:58)
[2017-02-27] MEDS ORDERED: MORPHINE SULFATE 4 MG/ML, 1ML ONE (16:27)
[2017-02-27] MEDS ORDERED: morphine SULFATE 10 MG/ML, 1ML IVPush ONE (16:30)
[2017-02-27] MEDS ORDERED: POTASSIUM CHLORIDE 20 MEQ TAB.ER.PRT PO ONE (18:30)
[2017-02-27] MEDS ORDERED: BISACODYL 10 MG SUPP PR PRN (18:30)
[2017-02-27] MEDS ORDERED: POLYETHYLENE GLYCOL 17 GM PACKET PO PRN (18:30)
[2017-02-27] MEDS: morphine SULFATE 10 MG/ML, 1ML IVPush PRN (20:31)
[2017-02-27] MEDS: ONDANSETRON 2MG/ML, 2ML IVPush PRN (20:31)
[2017-02-27] MEDS: NICOTINE 7 MG/24 HR PATCH.TD24 TD SCH (20:51)
[2017-02-27] MEDS: SODIUM CHLORIDE FLUSH 3ML SYRINGE IVF SCH (20:52)
[2017-02-27] MEDS: FUROSEMIDE 40 MG TABLET PO SCH (20:52)
[2017-02-27] MEDS: MAGNESIUM OXIDE 400 MG TABLET PO SCH (20:52)
[2017-02-27] MEDS: ALBUTEROL SULFATE 2.5 MG/3 ML NPPB SCH (21:00)
[2017-02-28] MEDS: morphine SULFATE 10 MG/ML, 1ML IVPush PRN ×7 (00:01→21:41)
[2017-02-28 00:03] VITALS: BP 109/65
[2017-02-28 01:04] VITALS: BP 113/73
[2017-02-28 02:15] VITALS: BP 110/64
[2017-02-28] MEDS: ONDANSETRON 2MG/ML, 2ML IVPush PRN ×2 (03:07→13:29)
[2017-02-28 06:16] LABS: ASPARTATE AMINO TRANSFERASE 78 U/L (15-37); BLOOD UREA NITROGEN 10 mg/dL (7-18)
[2017-02-28 08:16] VITALS: BP 127/81
[2017-02-28] MEDS: POTASSIUM CHLORIDE 20 MEQ TAB.ER.PRT PO SCH (09:05)
[2017-02-28] MEDS: FOLIC ACID 1 MG TABLET PO SCH (09:05)
[2017-02-28] MEDS: SPIRONOLACTONE 100 MG TABLET PO SCH (09:05)
[2017-02-28] MEDS: THIAMINE 100MG TABLET PO SCH (09:06)
[2017-02-28] MEDS: FUROSEMIDE 40 MG TABLET PO SCH ×2 (09:06→21:38)
[2017-02-28] MEDS: CYANOCOBALAMIN 1,000 MCG TABLET PO SCH (09:06)
[2017-02-28] MEDS: MAGNESIUM OXIDE 400 MG TABLET PO SCH ×2 (09:06→21:38)
[2017-02-28] MEDS: SODIUM CHLORIDE FLUSH 3ML SYRINGE IVF SCH ×2 (09:06→21:00)
[2017-02-28] MEDS: MULTIVITAMIN 1 TABLET PO SCH (09:06)
[2017-02-28] MEDS: ZINC SULFATE 220 MG CAPSULE PO SCH (09:06)
[2017-02-28] MEDS: SENNA/DOCUSATE TABLET PO SCH (09:07)
[2017-02-28] MEDS: ALBUTEROL SULFATE 2.5 MG/3 ML NPPB SCH ×4 (09:09→21:00)
[2017-02-28] MEDS: FLUTICASONE FUROATE 100MCG/INH INH SCH (09:11)
[2017-02-28] MEDS ORDERED: PHYTONADIONE 5 MG TABLET PO ONE (11:00)
[2017-02-28 12:35] VITALS: BP 115/70
[2017-02-28] MEDS: NICOTINE 7 MG/24 HR PATCH.TD24 TD SCH (18:39)
[2017-02-28 19:36] VITALS: BP 122/76
[2017-03-01 00:54] VITALS: BP 129/81
[2017-03-01] MEDS: morphine SULFATE 10 MG/ML, 1ML IVPush PRN ×6 (00:58→21:33)
[2017-03-01 06:15] VITALS: BP 105/58
[2017-03-01 06:44] LABS: BLOOD UREA NITROGEN 8 mg/dL (7-18)
[2017-03-01 06:46] LABS: ASPARTATE AMINO TRANSFERASE 79 U/L (15-37)
[2017-03-01 07:29] LABS: DIFF TOTAL CELLS COUNTED 100 CELL DIFF
[2017-03-01 07:35] LABS: ANISOCYTOSIS 1+; POLYCHROMASIA 1+
[2017-03-01 07:48] LABS: VERIFY COUNTS? YES
[2017-03-01] MEDS: SENNA/DOCUSATE TABLET PO SCH (08:39)
[2017-03-01] MEDS: THIAMINE 100MG TABLET PO SCH (08:39)
[2017-03-01] MEDS: POTASSIUM CHLORIDE 20 MEQ TAB.ER.PRT PO SCH (08:39)
[2017-03-01] MEDS: MULTIVITAMIN 1 TABLET PO SCH (08:39)
[2017-03-01] MEDS: MAGNESIUM OXIDE 400 MG TABLET PO SCH ×2 (08:39→21:32)
[2017-03-01] MEDS: FUROSEMIDE 40 MG TABLET PO SCH ×2 (08:39→21:32)
[2017-03-01] MEDS: SPIRONOLACTONE 100 MG TABLET PO SCH (08:40)
[2017-03-01] MEDS: FOLIC ACID 1 MG TABLET PO SCH (08:40)
[2017-03-01] MEDS: ALBUTEROL SULFATE 2.5 MG/3 ML NPPB SCH (08:40)
[2017-03-01] MEDS: SODIUM CHLORIDE FLUSH 3ML SYRINGE IVF SCH ×2 (08:40→21:00)
[2017-03-01] MEDS: FLUTICASONE FUROATE 100MCG/INH INH SCH (08:40)
[2017-03-01] MEDS: ZINC SULFATE 220 MG CAPSULE PO SCH (08:40)
[2017-03-01] MEDS ORDERED: PHYTONADIONE 5 MG TABLET PO ONE (10:00)
[2017-03-01] MEDS: CYANOCOBALAMIN 1,000 MCG TABLET PO SCH (10:19)
[2017-03-01 12:00] VITALS: BP 113/71
[2017-03-01] MEDS: NICOTINE 7 MG/24 HR PATCH.TD24 TD SCH (18:00)
[2017-03-01] MEDS: ONDANSETRON 2MG/ML, 2ML IVPush PRN (18:30)
[2017-03-01 20:14] VITALS: BP 120/73
[2017-03-02] MEDS: morphine SULFATE 10 MG/ML, 1ML IVPush PRN ×4 (01:02→12:15)
[2017-03-02 02:02] VITALS: BP 116/74
[2017-03-02] MEDS ORDERED: ALBUTEROL SULFATE 2.5 MG/3 ML NPPB PRN (06:00)
[2017-03-02 06:53] LABS: ASPARTATE AMINO TRANSFERASE 74 U/L (15-37); BLOOD UREA NITROGEN 9 mg/dL (7-18)
[2017-03-02 08:00] VITALS: BP 118/76
[2017-03-02] MEDS: POTASSIUM CHLORIDE 20 MEQ TAB.ER.PRT PO SCH (08:30)
[2017-03-02] MEDS: FUROSEMIDE 40 MG TABLET PO SCH ×2 (08:30→21:30)
[2017-03-02] MEDS: MULTIVITAMIN 1 TABLET PO SCH (08:30)
[2017-03-02] MEDS: SODIUM CHLORIDE FLUSH 3ML SYRINGE IVF SCH ×2 (08:30→21:30)
[2017-03-02] MEDS: SENNA/DOCUSATE TABLET PO SCH (08:30)
[2017-03-02] MEDS: SPIRONOLACTONE 100 MG TABLET PO SCH (08:30)
[2017-03-02] MEDS: MAGNESIUM OXIDE 400 MG TABLET PO SCH (08:30)
[2017-03-02] MEDS: THIAMINE 100MG TABLET PO SCH (08:30)
[2017-03-02] MEDS: CYANOCOBALAMIN 1,000 MCG TABLET PO SCH (08:30)
[2017-03-02] MEDS: FOLIC ACID 1 MG TABLET PO SCH (08:30)
[2017-03-02] MEDS: ZINC SULFATE 220 MG CAPSULE PO SCH (08:30)
[2017-03-02] MEDS: FLUTICASONE FUROATE 100MCG/INH INH SCH (09:00)
[2017-03-02 14:00] VITALS: BP 123/75
[2017-03-02] MEDS ORDERED: OXYcodone IR 5MG TABLET ONE ×2 (15:21→21:26)
[2017-03-02] MEDS: OXYcodone IR 5MG TABLET PO PRN ×2 (15:25→21:30)
[2017-03-02] MEDS: NICOTINE 7 MG/24 HR PATCH.TD24 TD SCH (17:45)
[2017-03-03 02:00] VITALS: BP 117/64
[2017-03-03] MEDS: OXYcodone IR 5MG TABLET PO PRN ×4 (03:00→22:06)
[2017-03-03] MEDS ORDERED: OXYcodone IR 5MG TABLET ONE ×2 (03:30→09:15)
[2017-03-03] MEDS: ONDANSETRON 2MG/ML, 2ML IVPush PRN ×2 (04:30→12:40)
[2017-03-03 07:20] VITALS: BP 112/63
[2017-03-03] MEDS: FLUTICASONE FUROATE 100MCG/INH INH SCH (09:00)
[2017-03-03] MEDS: SODIUM CHLORIDE FLUSH 3ML SYRINGE IVF SCH ×2 (09:00→20:47)
[2017-03-03] MEDS: FUROSEMIDE 40 MG TABLET PO SCH ×2 (09:30→20:48)
[2017-03-03] MEDS: SPIRONOLACTONE 100 MG TABLET PO SCH (09:30)
[2017-03-03] MEDS: ZINC SULFATE 220 MG CAPSULE PO SCH (09:30)
[2017-03-03] MEDS: MULTIVITAMIN 1 TABLET PO SCH (09:30)
[2017-03-03] MEDS: CYANOCOBALAMIN 1,000 MCG TABLET PO SCH (09:30)
[2017-03-03] MEDS: SENNA/DOCUSATE TABLET PO SCH (09:30)
[2017-03-03] MEDS: FOLIC ACID 1 MG TABLET PO SCH (09:30)
[2017-03-03] MEDS: THIAMINE 100MG TABLET PO SCH (09:30)
[2017-03-03 12:20] VITALS: BP 108/64
[2017-03-03 14:00] VITALS: BP 123/75
[2017-03-03] MEDS ORDERED: MORPHINE SULFATE 4 MG/ML, 1ML IVPush PRN (17:00)
[2017-03-03] MEDS: NICOTINE 7 MG/24 HR PATCH.TD24 TD SCH (17:23)
[2017-03-03] MEDS: MORPHINE SULFATE 4 MG/ML, 1ML IVPush PRN (17:24)
[2017-03-03 20:36] VITALS: BP 107/63
[2017-03-03 22:19] LABS: DIFF TOTAL CELLS COUNTED 100 CELL DIFF
[2017-03-03 22:20] LABS: ANISOCYTOSIS 1+; OVALOCYTES 1+
[2017-03-03 22:22] LABS: VERIFY COUNTS? YES
[2017-03-04] MEDS: MORPHINE SULFATE 4 MG/ML, 1ML IVPush PRN ×2 (00:08→08:42)
[2017-03-04 02:50] VITALS: BP 108/67
[2017-03-04] MEDS: OXYcodone IR 5MG TABLET PO PRN ×2 (05:37→11:37)
[2017-03-04 08:20] VITALS: BP 129/78
[2017-03-04] MEDS: SPIRONOLACTONE 100 MG TABLET PO SCH (08:41)
[2017-03-04] MEDS: CYANOCOBALAMIN 1,000 MCG TABLET PO SCH (08:41)
[2017-03-04] MEDS: ZINC SULFATE 220 MG CAPSULE PO SCH (08:41)
[2017-03-04] MEDS: FUROSEMIDE 40 MG TABLET PO SCH (08:41)
[2017-03-04] MEDS: MULTIVITAMIN 1 TABLET PO SCH (08:41)
[2017-03-04] MEDS: THIAMINE 100MG TABLET PO SCH (08:41)
[2017-03-04] MEDS: SENNA/DOCUSATE TABLET PO SCH (08:41)
[2017-03-04] MEDS ORDERED: POTA20PA8 PO (08:41)
[2017-03-04] MEDS: FOLIC ACID 1 MG TABLET PO SCH (08:41)
[2017-03-04] MEDS: FLUTICASONE FUROATE 100MCG/INH INH SCH (08:46)
[2017-03-04] MEDS: SODIUM CHLORIDE FLUSH 3ML SYRINGE IVF SCH (08:46)
[2017-03-04] MEDS: ONDANSETRON 2MG/ML, 2ML IVPush PRN (08:46)
[2017-03-05 09:16] LABS: ASPARTATE AMINO TRANSFERASE 85 U/L (15-37); BLOOD UREA NITROGEN 9 mg/dL (7-18)
[2017-03-07 10:15] LABS: ANISOCYTOSIS 2+; HYPOCHROMIA 1+; SCHISTOCYTES 1+
[2017-03-07 10:16] LABS: POLYCHROMASIA 1+
== END 2017-03-04 13:35 | disposition home or self-care (01) | DRG 537 ==
LOC: ED 11:55 → EDIP 15:32 → 4WST 18:19 → DCLOUNGE 03-04 13:10
PROVIDERS: ADMIT Internal Medicine; ATTEND Internal Medicine
PROC: 30233R1 Transfusion of Nonautologous Platelets into Peripheral Vein, Percutaneous Approach (ICD-10-PCS; principal; 2017-02-27)
PROC: 30233N1 Transfusion of Nonautologous Red Blood Cells into Peripheral Vein, Percutaneous Approach (ICD-10-PCS; 2017-02-27)
DX: S76.911A Strain of unspecified muscles, fascia and tendons at thigh level, right thigh, initial encounter (principal); E43 Unspecified severe protein-calorie malnutrition; D62 Acute posthemorrhagic anemia; K76.6 Portal hypertension; E44.0 Moderate protein-calorie malnutrition; D68.4 Acquired coagulation factor deficiency; S70.11XA Contusion of right thigh, initial encounter; X58.XXXA Exposure to other specified factors, initial encounter; E55.9 Vitamin D deficiency, unspecified; E28.2 Polycystic ovarian syndrome; F41.9 Anxiety disorder, unspecified; F32.9 Major depressive disorder, single episode, unspecified; K72.90 Hepatic failure, unspecified without coma; I10 Essential (primary) hypertension; D75.89 Other specified diseases of blood and blood-forming organs; K70.30 Alcoholic cirrhosis of liver without ascites; D69.6 Thrombocytopenia, unspecified; E87.6 Hypokalemia; I27.2 Other secondary pulmonary hypertension; F12.10 Cannabis abuse, uncomplicated; F17.210 Nicotine dependence, cigarettes, uncomplicated; D57.1 Sickle-cell disease without crisis; K72.10 Chronic hepatic failure without coma; Y93.89 Activity, other specified; Y92.89 Other specified places as the place of occurrence of the external cause; Z68.25 Body mass index [BMI] 25.0-25.9, adult
CPT/HCPCS: 36415; 80053; 81001; 82306; 82550; 83605; 83735; 84145; 85014; 85018; 85025; 85610; 85730; 86850; 86900; 86923; 87040; 87086; 96361; 96372; 96374; 96375; A9585; J1885; J2405; J2543; J3370; J2270; J7030; J7050; P9016; P9035; Q0177

== ENCOUNTER 2017-05-29 22:51 | Emergency (ER) | payer MEDICAID ==
[~2017-05-29] VITALS: Ht 165.1 cm; Wt 65.8 kg
[~2017-05-29 22:51] MED LIST changes: -ALBU8.5H3 INH; +ALBU8.5H8 INH; +NICO1PAT13 TD; -NICO1PAT4 TD; -OXYC-223 PO; +OXYC-306 PO; +POTA20PA25 PO; +RIFA550T4 PO; -SUCR1TAB26 PO; +SUCR1TAB33 PO
[2017-05-29] MEDS ORDERED: LORA2TAB99 PO (23:23)
[2017-05-29] MEDS ORDERED: SODIUM CHLORIDE 0.9% 1,000ML IVBOLUS ONE (23:30)
[2017-05-29] MEDS ORDERED: ONDANSETRON 2MG/ML, 2ML IVPush ONE (23:30)
[2017-05-29] MEDS ORDERED: ONDANSETRON 2MG/ML, 2ML ONE (23:33)
[2017-05-29 23:47] LABS: HEMATOCRIT 29.5 % (34.6-47.8); HEMOGLOBIN 9.4 g/dL (11.7-16.4); WHITE BLOOD COUNT 6.1 x10^3/uL (3.4-10)
[2017-05-29 23:57] LABS: ASPARTATE AMINO TRANSFERASE 202 U/L (15-37); BLOOD UREA NITROGEN 7 mg/dL (7-18)
[2017-05-30 02:28] VITALS: BP 130/79
== END 2017-05-30 02:31 | disposition home or self-care (01) ==
LOC: ED 23:08
DX: K70.11 Alcoholic hepatitis with ascites (principal); F10.20 Alcohol dependence, uncomplicated; F19.20 Other psychoactive substance dependence, uncomplicated; Z72.9 Problem related to lifestyle, unspecified
CPT/HCPCS: 36415; 80053; 85025; 96361; 96374; 99284; J2405; J7030

== ENCOUNTER 2017-06-03 04:21 | Inpatient (IN) | payer MEDICAID ==
[~2017-06-03] VITALS: Ht 165.1 cm; Wt 75.2 kg
[~2017-06-03 04:21] MED LIST changes: +LORA2TAB99 PO
[2017-06-03] MEDS ORDERED: SODIUM CHLORIDE FLUSH 10ML SYR IVF ONE (05:00)
[2017-06-03 05:53] LABS: ASPARTATE AMINO TRANSFERASE 323 U/L (15-37); BLOOD UREA NITROGEN 5 mg/dL (7-18)
[2017-06-03 06:28] LABS: HEMATOCRIT 27.2 % (34.6-47.8); HEMOGLOBIN 8.8 g/dL (11.7-16.4); WHITE BLOOD COUNT 5.9 x10^3/uL (3.4-10)
[2017-06-03] MEDS ORDERED: SODIUM CHLORIDE 0.9% 1,000 ML IV ONE (06:44)
[2017-06-03] MEDS ORDERED: SODIUM CHLORIDE FLUSH 10ML SYR IVF PRN (07:00)
[2017-06-03] MEDS ORDERED: HYDROcodone/APAP 5/325 TABLET PO PRN (08:00)
[2017-06-03] MEDS ORDERED: ONDANSETRON ODT 4 MG PO PRN (08:00)
[2017-06-03] MEDS ORDERED: LORazepam 0.5MG TABLET PO PRN (08:00)
[2017-06-03] MEDS ORDERED: LORazepam 1MG TABLET PO PRN ×3 (08:00)
[2017-06-03] MEDS ORDERED: LABETALOL 5MG/ML, 20ML IVPush PRN (08:00)
[2017-06-03] MEDS ORDERED: LORazepam 2 MG/ML, 1ML IV PRN ×3 (08:00)
[2017-06-03] MEDS ORDERED: POLYETHYLENE GLYCOL 17 GM PACKET PO PRN (08:00)
[2017-06-03] MEDS: SODIUM CHLORIDE 0.9% 1,000 ML IV SCH (08:09)
[2017-06-03] MEDS ORDERED: PANTOPRAZOLE 40 MG IV IVPush SCH (08:30)
[2017-06-03] MEDS: MOMETASONE FUROATE INH SCH (09:00)
[2017-06-03] MEDS: SENNA/DOCUSATE TABLET PO SCH (09:00)
[2017-06-03] MEDS: POTASSIUM CHLORIDE 20 MEQ, MAGNESIUM SULFATE 1 GM, FOLIC ACID 1 MG, THIAMINE 100 MG, MV... IV SCH (10:39)
[2017-06-03] MEDS: ZINC SULFATE 220 MG CAPSULE PO SCH (10:40)
[2017-06-03] MEDS: MULTIVITAMIN 1 TABLET PO SCH (10:42)
[2017-06-03] MEDS ORDERED: MORPHINE SULFATE 4 MG/ML, 1ML ONE (10:49)
[2017-06-03] MEDS: ONDANSETRON 2MG/ML, 2ML IVPush PRN (10:54)
[2017-06-03] MEDS: morphine SULFATE 10 MG/ML, 1ML IVPush PRN ×3 (10:55→23:38)
[2017-06-03] MEDS: TEMPLATE NON-FORMULARY MED. (Albuterol Sulfate (Proair Hfa) 2 PUFFS) INH SCH ×3 (11:00→21:00)
[2017-06-03] MEDS: LORazepam 2 MG/ML, 1ML IV PRN ×3 (13:28→21:56)
[2017-06-03 14:03] VITALS: BP 117/81
[2017-06-03] MEDS: CEFTRIAXONE PMX 1GM/50ML 50 ML IV SCH (17:12)
[2017-06-03] MEDS: PANTOPROZOLE 40MG TABLET PO SCH (17:12)
[2017-06-03 19:15] VITALS: BP 113/72
[2017-06-04 00:44] VITALS: BP 110/64
[2017-06-04] MEDS: SODIUM CHLORIDE 0.9% 1,000 ML IV SCH (00:58)
[2017-06-04] MEDS: LORazepam 2 MG/ML, 1ML IV PRN ×2 (01:43→06:05)
[2017-06-04] MEDS: ONDANSETRON ODT 4 MG PO PRN (02:23)
[2017-06-04] MEDS: TEMPLATE NON-FORMULARY MED. (Albuterol Sulfate (Proair Hfa) 2 PUFFS) INH SCH ×4 (05:52→21:00)
[2017-06-04 05:54] LABS: HEMATOCRIT 23.9 % (34.6-47.8); HEMOGLOBIN 7.9 g/dL (11.7-16.4); WHITE BLOOD COUNT 5.1 x10^3/uL (3.4-10)
[2017-06-04 06:30] LABS: DIFF TOTAL CELLS COUNTED 100 CELL DIFF
[2017-06-04 06:37] LABS: ASPARTATE AMINO TRANSFERASE 307 U/L (15-37); BLOOD UREA NITROGEN 4 mg/dL (7-18)
[2017-06-04 06:41] LABS: ANISOCYTOSIS 1+; VERIFY COUNTS? YES
[2017-06-04 06:42] LABS: HYPOCHROMIA 1+
[2017-06-04 07:19] VITALS: BP 138/85
[2017-06-04] MEDS: MULTIVITAMIN 1 TABLET PO SCH (08:45)
[2017-06-04] MEDS: PANTOPROZOLE 40MG TABLET PO SCH ×2 (08:45→16:31)
[2017-06-04] MEDS: SENNA/DOCUSATE TABLET PO SCH (08:45)
[2017-06-04] MEDS: MOMETASONE FUROATE INH SCH (08:45)
[2017-06-04] MEDS: ZINC SULFATE 220 MG CAPSULE PO SCH (08:45)
[2017-06-04 08:46] VITALS: BP 117/70
[2017-06-04] MEDS: morphine SULFATE 10 MG/ML, 1ML IVPush PRN ×3 (10:54→20:25)
[2017-06-04] MEDS: LORazepam 1MG TABLET PO PRN ×2 (10:54→22:01)
[2017-06-04] MEDS ORDERED: LIDOCAINE 1%, 20ML ONE (11:03)
[2017-06-04] MEDS: ONDANSETRON 2MG/ML, 2ML IVPush PRN (11:09)
[2017-06-04] MEDS: POTASSIUM CHLORIDE 20 MEQ, MAGNESIUM SULFATE 1 GM, FOLIC ACID 1 MG, THIAMINE 100 MG, MV... IV SCH (14:00)
[2017-06-04] MEDS: OXYcodone IR 5MG TABLET PO PRN ×3 (15:17→23:45)
[2017-06-04 15:18] VITALS: BP 109/74
[2017-06-04] MEDS: CEFTRIAXONE PMX 1GM/50ML 50 ML IV SCH (16:31)
[2017-06-04 20:25] VITALS: BP 126/82
[2017-06-05] VITALS (11 sets, daily range): BP systolic 107–131; BP diastolic 52–89
[2017-06-05] MEDS: morphine SULFATE 10 MG/ML, 1ML IVPush PRN ×5 (03:26→22:24)
[2017-06-05] MEDS: ONDANSETRON ODT 4 MG PO PRN (05:08)
[2017-06-05] MEDS: OXYcodone IR 5MG TABLET PO PRN ×4 (05:08→21:52)
[2017-06-05] MEDS: SODIUM CHLORIDE 0.9% 1,000 ML IV SCH (05:08)
[2017-06-05] MEDS: TEMPLATE NON-FORMULARY MED. (Albuterol Sulfate (Proair Hfa) 2 PUFFS) INH SCH ×4 (05:50→21:00)
[2017-06-05 06:01] LABS: ASPARTATE AMINO TRANSFERASE 256 U/L (15-37); BLOOD UREA NITROGEN 3 mg/dL (7-18)
[2017-06-05 06:15] LABS: HEMOGLOBIN 7.2 g/dL (11.7-16.4); WHITE BLOOD COUNT 4.5 x10^3/uL (3.4-10)
[2017-06-05 06:33] LABS: HEMATOCRIT 22.2 % (34.6-47.8)
[2017-06-05] MEDS: MOMETASONE FUROATE INH SCH (08:02)
[2017-06-05] MEDS: PANTOPROZOLE 40MG TABLET PO SCH ×2 (08:08→16:33)
[2017-06-05] MEDS: MULTIVITAMIN 1 TABLET PO SCH (08:08)
[2017-06-05] MEDS: SENNA/DOCUSATE TABLET PO SCH (08:08)
[2017-06-05] MEDS: ZINC SULFATE 220 MG CAPSULE PO SCH (08:08)
[2017-06-05] MEDS: ONDANSETRON 2MG/ML, 2ML IVPush PRN (08:12)
[2017-06-05] MEDS ORDERED: LIDOCAINE 1%, 20ML ONE (08:13)
[2017-06-05] MEDS: AMPICILLIN/SULBACTAM 3 GM in SODIUM CHLORIDE 0.9% 100 ML IV SCH ×3 (11:20→23:47)
[2017-06-05] MEDS: POTASSIUM CHLORIDE 20 MEQ, MAGNESIUM SULFATE 1 GM, FOLIC ACID 1 MG, THIAMINE 100 MG, MV... IV SCH (17:42)
[2017-06-05] MEDS: LORazepam 1MG TABLET PO PRN (21:07)
[2017-06-06 01:31] VITALS: BP 111/73
[2017-06-06] MEDS: morphine SULFATE 10 MG/ML, 1ML IVPush PRN ×7 (01:42→23:30)
[2017-06-06] MEDS: OXYcodone IR 5MG TABLET PO PRN ×5 (03:57→21:56)
[2017-06-06 05:50] LABS: BLOOD UREA NITROGEN 2 mg/dL (7-18)
[2017-06-06 05:53] LABS: HEMATOCRIT 28.1 % (34.6-47.8); HEMOGLOBIN 9.4 g/dL (11.7-16.4); WHITE BLOOD COUNT 6.4 x10^3/uL (3.4-10)
[2017-06-06 05:55] LABS: ASPARTATE AMINO TRANSFERASE 197 U/L (15-37)
[2017-06-06] MEDS: TEMPLATE NON-FORMULARY MED. (Albuterol Sulfate (Proair Hfa) 2 PUFFS) INH SCH ×4 (05:59→21:00)
[2017-06-06 06:16] LABS: DIFF TOTAL CELLS COUNTED 100 CELL DIFF
[2017-06-06 06:18] LABS: ANISOCYTOSIS 1+; VERIFY COUNTS? YES
[2017-06-06 06:19] LABS: HYPOCHROMIA 1+
[2017-06-06] MEDS: AMPICILLIN/SULBACTAM 3 GM in SODIUM CHLORIDE 0.9% 100 ML IV SCH ×4 (06:19→23:30)
[2017-06-06 06:20] LABS: OVALOCYTES 1+; POLYCHROMASIA 1+
[2017-06-06 06:21] LABS: LARGE PLATELETS 1+
[2017-06-06 07:12] VITALS: BP 109/67
[2017-06-06] MEDS: PANTOPROZOLE 40MG TABLET PO SCH ×2 (08:47→17:48)
[2017-06-06] MEDS: MOMETASONE FUROATE INH SCH (08:47)
[2017-06-06] MEDS: ZINC SULFATE 220 MG CAPSULE PO SCH (08:48)
[2017-06-06] MEDS: SENNA/DOCUSATE TABLET PO SCH (08:48)
[2017-06-06] MEDS: MULTIVITAMIN 1 TABLET PO SCH (08:48)
[2017-06-06] MEDS ORDERED: MORPHINE SULFATE 4 MG/ML, 1ML ONE ×2 (12:42→15:46)
[2017-06-06 14:09] VITALS: BP 112/73
[2017-06-06] MEDS: ONDANSETRON ODT 4 MG PO PRN (17:49)
[2017-06-06] MEDS: POTASSIUM CHLORIDE 20 MEQ, MAGNESIUM SULFATE 1 GM, FOLIC ACID 1 MG, THIAMINE 100 MG, MV... IV SCH (20:14)
[2017-06-06 21:25] VITALS: BP 117/82
[2017-06-07] MEDS: OXYcodone IR 5MG TABLET PO PRN ×3 (01:54→10:00)
[2017-06-07 02:01] VITALS: BP 120/75
[2017-06-07] MEDS: morphine SULFATE 10 MG/ML, 1ML IVPush PRN ×2 (02:41→05:56)
[2017-06-07 05:33] LABS: HEMATOCRIT 28.8 % (34.6-47.8); HEMOGLOBIN 9.4 g/dL (11.7-16.4); WHITE BLOOD COUNT 6.4 x10^3/uL (3.4-10)
[2017-06-07 05:51] LABS: ASPARTATE AMINO TRANSFERASE 148 U/L (15-37); BLOOD UREA NITROGEN 2 mg/dL (7-18)
[2017-06-07] MEDS: AMPICILLIN/SULBACTAM 3 GM in SODIUM CHLORIDE 0.9% 100 ML IV SCH ×2 (05:56→11:49)
[2017-06-07] MEDS: TEMPLATE NON-FORMULARY MED. (Albuterol Sulfate (Proair Hfa) 2 PUFFS) INH SCH ×2 (06:00→10:54)
[2017-06-07 06:05] LABS: DIFF TOTAL CELLS COUNTED 100 CELL DIFF
[2017-06-07 06:08] LABS: VERIFY COUNTS? YES
[2017-06-07 06:09] LABS: ANISOCYTOSIS 1+; POLYCHROMASIA 1+
[2017-06-07 06:11] LABS: LARGE PLATELETS 1+
[2017-06-07 06:14] LABS: SCHISTOCYTES 1+
[2017-06-07 06:15] LABS: ECHINOCYTES 1+
[2017-06-07 07:23] VITALS: BP 116/74
[2017-06-07] MEDS ORDERED: AMOX1TAB64 PO (08:38)
[2017-06-07] MEDS: MOMETASONE FUROATE INH SCH (09:00)
[2017-06-07] MEDS: ONDANSETRON 2MG/ML, 2ML IVPush PRN (09:21)
[2017-06-07] MEDS: PANTOPROZOLE 40MG TABLET PO SCH (09:22)
[2017-06-07] MEDS: MULTIVITAMIN 1 TABLET PO SCH (09:22)
[2017-06-07] MEDS: ZINC SULFATE 220 MG CAPSULE PO SCH (09:22)
[2017-06-07] MEDS: SENNA/DOCUSATE TABLET PO SCH (09:22)
== END 2017-06-07 13:03 | disposition home or self-care (01) | DRG 441 ==
LOC: ED 05:23 → EDIP 06:44 → 3NE 08:50
PROVIDERS: ADMIT Hospitalist; ATTEND Hospitalist
PROC: 0W9G30Z Drainage of Peritoneal Cavity with Drainage Device, Percutaneous Approach (ICD-10-PCS; principal; 2017-06-04)
PROC: 0X953ZX Drainage of Left Axilla, Percutaneous Approach, Diagnostic (ICD-10-PCS; 2017-06-05)
PROC: 30233N1 Transfusion of Nonautologous Red Blood Cells into Peripheral Vein, Percutaneous Approach (ICD-10-PCS; 2017-06-05)
DX: I81 Portal vein thrombosis (principal); E43 Unspecified severe protein-calorie malnutrition; I47.2 Ventricular tachycardia; I85.11 Secondary esophageal varices with bleeding; D69.6 Thrombocytopenia, unspecified; K70.31 Alcoholic cirrhosis of liver with ascites; K76.6 Portal hypertension; D62 Acute posthemorrhagic anemia; I47.1 Supraventricular tachycardia; L02.412 Cutaneous abscess of left axilla; K70.11 Alcoholic hepatitis with ascites; F10.229 Alcohol dependence with intoxication, unspecified; E11.9 Type 2 diabetes mellitus without complications; I10 Essential (primary) hypertension; E28.2 Polycystic ovarian syndrome; E55.9 Vitamin D deficiency, unspecified; E87.6 Hypokalemia; F19.94 Other psychoactive substance use, unspecified with psychoactive substance-induced mood disorder; G89.29 Other chronic pain; I25.10 Atherosclerotic heart disease of native coronary artery without angina pectoris; K76.0 Fatty (change of) liver, not elsewhere classified; Y90.8 Blood alcohol level of 240 mg/100 ml or more; Z87.891 Personal history of nicotine dependence; K70.40 Alcoholic hepatic failure without coma; D63.8 Anemia in other chronic diseases classified elsewhere; F41.9 Anxiety disorder, unspecified; F32.9 Major depressive disorder, single episode, unspecified; F12.10 Cannabis abuse, uncomplicated; R74.8 Abnormal levels of other serum enzymes; Z68.27 Body mass index [BMI] 27.0-27.9, adult; K52.9 Noninfective gastroenteritis and colitis, unspecified
CPT/HCPCS: 36415; 49083; 70450; 76642; 76700; 76942; 80053; 80061; 80307; 82140; 83690; 83735; 84439; 84703; 85025; 85610; 85730; 86850; 86900; 86923; 87070; 87116; 87205; 87206; 89051; 99285; J0295; J0696; J2405; J3411; J3475; J3480; J3490; J7042; Q0162; J2060; J2270; J7030; P9016; Q0177

== ENCOUNTER 2017-06-16 09:55 | Emergency (ER) | payer MEDICAID ==
[~2017-06-16] VITALS: Ht 165.1 cm; Wt 65.9 kg
[~2017-06-16 09:55] MED LIST changes: +AMOX1TAB64 PO
[2017-06-16] MEDS ORDERED: HYDR2TAB29 PO (10:20)
[2017-06-16] MEDS ORDERED: SODIUM CHLORIDE FLUSH 10ML SYR IVF ONE (10:30)
[2017-06-16] MEDS ORDERED: MORPHINE SULFATE 4 MG/ML, 1ML IVPush PRN (10:30)
[2017-06-16] MEDS ORDERED: PANTOPRAZOLE 80 MG in SODIUM CHLORIDE 0.9% 50 ML IV ONE (10:30)
[2017-06-16] MEDS ORDERED: ONDANSETRON 2MG/ML, 2ML IVPush ONE (10:30)
[2017-06-16] MEDS ORDERED: PANTOPRAZOLE 40 MG IV ONE (10:39)
[2017-06-16] MEDS ORDERED: ONDANSETRON 2MG/ML, 2ML ONE (10:40)
[2017-06-16] MEDS ORDERED: MORPHINE SULFATE 4 MG/ML, 1ML ONE (10:40)
[2017-06-16 10:49] LABS: HEMATOCRIT 35.4 % (34.6-47.8); HEMOGLOBIN 11.5 g/dL (11.7-16.4); WHITE BLOOD COUNT 6.9 x10^3/uL (3.4-10)
[2017-06-16] MEDS ORDERED: LIDOCAINE 1%, 20ML ONE (10:53)
[2017-06-16 10:59] LABS: BLOOD UREA NITROGEN 5 mg/dL (7-18)
[2017-06-16 11:02] LABS: ASPARTATE AMINO TRANSFERASE 275 U/L (15-37)
[2017-06-16 12:45] LABS: CELLS COUNTED 76; DILUTION 1; WBC SQUARES COUNTED 10
[2017-06-16 13:35] VITALS: BP 104/60
== END 2017-06-16 13:45 | disposition other institution (70) ==
LOC: ED 10:36
DX: K70.30 Alcoholic cirrhosis of liver without ascites (principal); F10.20 Alcohol dependence, uncomplicated; F17.210 Nicotine dependence, cigarettes, uncomplicated
CPT/HCPCS: 36415; 49083; 80053; 82140; 85025; 85610; 85730; 86850; 86900; 87070; 87205; 89051; 93005; 96365; 96375; 99285; C9113; J2405; J3490

== ENCOUNTER 2017-06-21 20:43 | Emergency (ER) | payer MEDICAID ==
[~2017-06-21] VITALS: Ht 165.1 cm; Wt 65.9 kg
[~2017-06-21 20:43] MED LIST changes: +HYDR2TAB29 PO; +NICO-486 TD; -NICO1PAT13 TD
[2017-06-21] MEDS ORDERED: METOCLOPRAMIDE 5 MG/ML, 2ML ONE (21:27)
[2017-06-21] MEDS ORDERED: PANTOPRAZOLE 40 MG IV ONE (21:27)
[2017-06-21] MEDS ORDERED: PANTOPRAZOLE 40 MG IV IVP ONE (21:30)
[2017-06-21] MEDS ORDERED: METOCLOPRAMIDE 5 MG/ML, 2ML IVPush ONE (21:30)
[2017-06-21 21:44] LABS: HEMATOCRIT 35.9 % (34.6-47.8); HEMOGLOBIN 11.6 g/dL (11.7-16.4); WHITE BLOOD COUNT 7.6 x10^3/uL (3.4-10)
[2017-06-21 21:53] LABS: ASPARTATE AMINO TRANSFERASE 405 U/L (15-37); BLOOD UREA NITROGEN 6 mg/dL (7-18)
[2017-06-21] MEDS ORDERED: MORPHINE SULFATE 4 MG/ML, 1ML ONE (21:57)
[2017-06-21] MEDS ORDERED: MORPHINE SULFATE 4 MG/ML, 1ML IVPush PRN (22:00)
[2017-06-21 22:11] LABS: DIFF TOTAL CELLS COUNTED 100 CELL DIFF
[2017-06-21 22:15] LABS: VERIFY COUNTS? YES
[2017-06-21 22:16] LABS: ANISOCYTOSIS 1+
[2017-06-21 22:17] LABS: POLYCHROMASIA 1+
[2017-06-21 22:22] LABS: LARGE PLATELETS 1+
[2017-06-22 01:28] VITALS: BP 119/69
== END 2017-06-22 01:31 | disposition home or self-care (01) ==
LOC: ED 21:57
DX: K70.40 Alcoholic hepatic failure without coma (principal); K74.60 Unspecified cirrhosis of liver; F10.220 Alcohol dependence with intoxication, uncomplicated; I10 Essential (primary) hypertension; Z90.49 Acquired absence of other specified parts of digestive tract
CPT/HCPCS: 36415; 76700; 80053; 80307; 82140; 83690; 84703; 85025; 96374; 96375; 99285; C9113; J2765; G0479

== ENCOUNTER 2017-06-24 11:33 | Emergency (ER) | payer MEDICAID ==
[~2017-06-24] VITALS: Ht 165.1 cm; Wt 70.0 kg
[2017-06-24] MEDS ORDERED: LORazepam 2 MG/ML, 1ML ONE (11:57)
[2017-06-24] MEDS ORDERED: HYDROmorphone 1 MG/ML, 1ML ONE ×2 (11:57→14:16)
[2017-06-24] MEDS ORDERED: ONDANSETRON 2MG/ML, 2ML ONE (11:57)
[2017-06-24] MEDS ORDERED: SODIUM CHLORIDE FLUSH 10ML SYR IVF ONE (12:00)
[2017-06-24] MEDS ORDERED: LORazepam 2 MG/ML, 1ML IVPush ONE (12:00)
[2017-06-24] MEDS ORDERED: METOCLOPRAMIDE 5 MG/ML, 2ML IVPush ONE (12:00)
[2017-06-24] MEDS: HYDROmorphone 1 MG/ML, 1ML IVPush PRN ×2 (12:03→14:21)
[2017-06-24] MEDS ORDERED: LIDOCAINE 1%, 20ML ONE (12:20)
[2017-06-24 12:29] LABS: HEMATOCRIT 31.1 % (34.6-47.8); HEMOGLOBIN 10.2 g/dL (11.7-16.4); WHITE BLOOD COUNT 3.9 x10^3/uL (3.4-10)
[2017-06-24] MEDS ORDERED: ONDANSETRON 2MG/ML, 2ML IVPush ONE (12:30)
[2017-06-24 12:36] LABS: ASPARTATE AMINO TRANSFERASE 267 U/L (15-37); BLOOD UREA NITROGEN 6 mg/dL (7-18)
[2017-06-24 13:02] LABS: ANISOCYTOSIS 1+; MICROCYTOSIS 1+
[2017-06-24 14:17] VITALS: BP 127/70
[2017-06-24 14:55] LABS: CELLS COUNTED 39; DILUTION 1; WBC SQUARES COUNTED 4
== END 2017-06-24 17:29 ==
LOC: ED 12:48
DX: K70.31 Alcoholic cirrhosis of liver with ascites (principal); I10 Essential (primary) hypertension; I85.00 Esophageal varices without bleeding; D69.6 Thrombocytopenia, unspecified
CPT/HCPCS: 36415; 49083; 80053; 82042; 82140; 83615; 83690; 85025; 85610; 85730; 87070; 87205; 89051; 96374; 96375; 99285; J1170; J2060; J2405; J3490

== ENCOUNTER → 2017-07-01 | Outpatient (CLI) | payer MEDICAID ==
[~2017-07-01] MED LIST changes: +LIDOCAINE 1%, 20ML ONE
== END | disposition home or self-care (01) ==
LOC: RAD 10:17
PROVIDERS: ATTEND Internal Medicine Gastroenterology
DX: K70.11 Alcoholic hepatitis with ascites (principal); K70.31 Alcoholic cirrhosis of liver with ascites; I85.00 Esophageal varices without bleeding; K21.9 Gastro-esophageal reflux disease without esophagitis
CPT/HCPCS: 49083; J3490

== ENCOUNTER → 2017-07-21 | Outpatient (CLI) | payer MEDICAID | END | disposition home or self-care (01) | LOC: RAD 14:03 | PROVIDERS: ATTEND Internal Medicine Gastroenterology | DX: K70.11 Alcoholic hepatitis with ascites (principal); R14.0 Abdominal distension (gaseous); R10.9 Unspecified abdominal pain | CPT/HCPCS: 49083; J3490 ==

== ENCOUNTER 2017-07-26 19:47 | Emergency (ER) | payer MEDICAID ==
[~2017-07-26] VITALS: Ht 165.1 cm; Wt 63.6 kg
[~2017-07-26 19:47] MED LIST changes: -LIDOCAINE 1%, 20ML ONE
[2017-07-26 21:16] LABS: ASPARTATE AMINO TRANSFERASE 336 U/L (15-37); BLOOD UREA NITROGEN 5 mg/dL (7-18)
[2017-07-26 21:33] LABS: HEMOGLOBIN 9.9 g/dL (11.7-16.4); WHITE BLOOD COUNT 4.4 x10^3/uL (3.4-10)
[2017-07-26 21:35] LABS: ANISOCYTOSIS 1+; OVALOCYTES 1+
[2017-07-26 21:36] LABS: POLYCHROMASIA 1+
[2017-07-26 22:08] VITALS: BP 101/45
== END 2017-07-26 22:09 | disposition home or self-care (01) ==
LOC: ED 20:19
DX: K70.30 Alcoholic cirrhosis of liver without ascites (principal); F10.220 Alcohol dependence with intoxication, uncomplicated; I10 Essential (primary) hypertension
CPT/HCPCS: 36415; 80053; 83690; 85025; 85610; 85730; 99284

== ENCOUNTER 2017-08-02 15:13 | Inpatient (IN) | payer MEDICAID ==
[~2017-08-02] VITALS: Ht 165.1 cm; Wt 66.5 kg
[2017-08-02 16:10] LABS: BLOOD UREA NITROGEN 8 mg/dL (7-18)
[2017-08-02 16:13] LABS: HEMATOCRIT 35.7 % (34.6-47.8); HEMOGLOBIN 11.9 g/dL (11.7-16.4); WHITE BLOOD COUNT 5.9 x10^3/uL (3.4-10)
[2017-08-02 16:14] LABS: ASPARTATE AMINO TRANSFERASE 269 U/L (15-37)
[2017-08-02 16:32] LABS: DIFF TOTAL CELLS COUNTED 100 CELL DIFF
[2017-08-02 16:35] LABS: VERIFY COUNTS? YES
[2017-08-02 16:36] LABS: HYPOCHROMIA 1+; POIKILOCYTOSIS 1+
[2017-08-02 16:37] LABS: OVALOCYTES 1+
[2017-08-02] MEDS ORDERED: ONDANSETRON 2MG/ML, 2ML ONE (16:41)
[2017-08-02] MEDS ORDERED: morphine SULFATE 10 MG/ML, 1ML ONE (16:41)
[2017-08-02] MEDS ORDERED: ONDANSETRON 2MG/ML, 2ML IVPush ONE (17:00)
[2017-08-02] MEDS ORDERED: SODIUM CHLORIDE 0.9% 1,000ML IVBOLUS ONE (17:00)
[2017-08-02] MEDS ORDERED: MORPHINE SULFATE 4 MG/ML, 1ML IVPush PRN ×2 (17:00→18:00)
[2017-08-02] MEDS ORDERED: SODIUM CHLORIDE 0.9% 1,000 ML IV ONE (17:44)
[2017-08-02] MEDS ORDERED: SODIUM CHLORIDE FLUSH 10ML SYR IVF PRN (18:00)
[2017-08-02] MEDS ORDERED: LABETALOL 5MG/ML, 20ML IVPush PRN (18:00)
[2017-08-02] MEDS ORDERED: BISACODYL 10 MG SUPP PR PRN (18:00)
[2017-08-02] MEDS ORDERED: POLYETHYLENE GLYCOL 17 GM PACKET PO PRN (18:00)
[2017-08-02] MEDS ORDERED: POTASSIUM CHLORIDE 20 MEQ in SODIUM CHLORIDE 0.9% 250 ML IV ONE (18:00)
[2017-08-02] MEDS ORDERED: ENALAPRILAT 1.25 MG/ML, 2ML IVPush PRN (18:00)
[2017-08-02] MEDS ORDERED: ONDANSETRON 2MG/ML, 2ML IVPush PRN (18:00)
[2017-08-02] MEDS ORDERED: THIAMINE 100 MG, MVI ADULT 10 ML in D5%-0.9% NACL 1,000 ML IV SCH (18:00)
[2017-08-02] MEDS: HYDROmorphone 2 MG/ML, 1ML IVPush PRN ×2 (19:44→22:57)
[2017-08-02 19:53] VITALS: BP 137/85
[2017-08-02] MEDS: NICOTINE 21 MG/24 HR PATCH.TD24 TD SCH (20:50)
[2017-08-02] MEDS ORDERED: FUROSEMIDE 20 MG/2 ML IV SCH (21:00)
[2017-08-03 01:08] VITALS: BP 130/88
[2017-08-03] MEDS: ALBUTEROL SULFATE 2.5 MG/3 ML NPPB SCH ×5 (01:31→21:00)
[2017-08-03] MEDS: HYDROmorphone 2 MG/ML, 1ML IVPush PRN ×7 (02:06→20:54)
[2017-08-03] MEDS: ONDANSETRON 2MG/ML, 2ML IVPush PRN ×3 (02:59→19:49)
[2017-08-03 05:23] LABS: HEMATOCRIT 32.5 % (34.6-47.8); HEMOGLOBIN 10.9 g/dL (11.7-16.4); WHITE BLOOD COUNT 5.1 x10^3/uL (3.4-10)
[2017-08-03 05:29] LABS: BLOOD UREA NITROGEN 7 mg/dL (7-18)
[2017-08-03 05:55] LABS: ASPARTATE AMINO TRANSFERASE 279 U/L (15-37)
[2017-08-03] MEDS: LORazepam 2 MG/ML, 1ML IVPush PRN ×3 (06:29→19:48)
[2017-08-03 06:32] VITALS: BP 146/93
[2017-08-03] MEDS ORDERED: POTASSIUM PHOSPHATE 22 MEQ in SODIUM CHLORIDE 0.9% 500 ML IV ONE (07:00)
[2017-08-03] MEDS ORDERED: CEFTRIAXONE PMX 1GM/50ML 50 ML IV SCH (07:00)
[2017-08-03] MEDS ORDERED: MAGNESIUM SULFATE PMX 2GM/50ML 50 ML IV ONE (07:00)
[2017-08-03] MEDS ORDERED: HYDROmorphone 1 MG/ML, 1ML ONE ×3 (08:07→14:37)
[2017-08-03] MEDS: LACTATED RINGERS 1,000 ML IV SCH ×2 (08:57→20:57)
[2017-08-03] MEDS ORDERED: FUROSEMIDE 20 MG/2 ML IV SCH ×2 (09:00)
[2017-08-03] MEDS: MOMETASONE FUROATE INH SCH (09:36)
[2017-08-03 12:01] VITALS: BP 144/94
[2017-08-03] MEDS: DOCUSATE 100 MG CAPSULE PO PRN (12:14)
[2017-08-03] MEDS: NICOTINE 21 MG/24 HR PATCH.TD24 TD SCH (17:22)
[2017-08-03 19:00] VITALS: BP 142/86
[2017-08-04] MEDS: HYDROmorphone 2 MG/ML, 1ML IVPush PRN ×6 (00:14→20:30)
[2017-08-04 01:01] VITALS: BP 146/89
[2017-08-04] MEDS: ONDANSETRON 2MG/ML, 2ML IVPush PRN (01:55)
[2017-08-04 05:37] LABS: HEMATOCRIT 27.9 % (34.6-47.8); HEMOGLOBIN 9.2 g/dL (11.7-16.4); WHITE BLOOD COUNT 3.6 x10^3/uL (3.4-10)
[2017-08-04 05:57] LABS: ASPARTATE AMINO TRANSFERASE 241 U/L (15-37); BLOOD UREA NITROGEN 7 mg/dL (7-18)
[2017-08-04 06:52] VITALS: BP 145/90
[2017-08-04] MEDS: CEFTRIAXONE 1,000 MG in DEXTROSE 5% 50 ML IV SCH (07:02)
[2017-08-04] MEDS: LACTATED RINGERS 1,000 ML IV SCH ×2 (07:03→18:33)
[2017-08-04] MEDS: ALBUTEROL SULFATE 2.5 MG/3 ML NPPB SCH ×4 (07:10→18:42)
[2017-08-04] MEDS: MOMETASONE FUROATE INH SCH (09:00)
[2017-08-04 12:21] VITALS: BP 143/92
[2017-08-04] MEDS: LORazepam 2 MG/ML, 1ML IVPush PRN ×3 (13:47→22:44)
[2017-08-04] MEDS: NICOTINE 21 MG/24 HR PATCH.TD24 TD SCH (18:33)
[2017-08-04 19:02] VITALS: BP 146/100
[2017-08-04] MEDS: METOCLOPRAMIDE 5 MG/ML, 2ML IVPush PRN (20:42)
[2017-08-05 00:41] VITALS: BP 146/87
[2017-08-05] MEDS: HYDROmorphone 2 MG/ML, 1ML IVPush PRN ×6 (02:12→22:13)
[2017-08-05 05:12] LABS: HEMATOCRIT 31.2 % (34.6-47.8); HEMOGLOBIN 10.4 g/dL (11.7-16.4); WHITE BLOOD COUNT 5.8 x10^3/uL (3.4-10)
[2017-08-05] MEDS: LACTATED RINGERS 1,000 ML IV SCH (05:18)
[2017-08-05 05:20] LABS: ASPARTATE AMINO TRANSFERASE 218 U/L (15-37); BLOOD UREA NITROGEN 5 mg/dL (7-18)
[2017-08-05] MEDS: ALBUTEROL SULFATE 2.5 MG/3 ML NPPB SCH (06:45)
[2017-08-05] MEDS ORDERED: CEFTRIAXONE 1,000 MG in SODIUM CHLORIDE 0.9% 50 ML IV SCH (07:00)
[2017-08-05] MEDS ORDERED: SODIUM PHOSPHATE 20 MMOL in SODIUM CHLORIDE 0.9% 500 ML IV ONE (08:00)
[2017-08-05 08:20] VITALS: BP 144/92
[2017-08-05] MEDS: MOMETASONE FUROATE INH SCH (09:00)
[2017-08-05] MEDS: CEFTRIAXONE 1,000 MG in DEXTROSE 5% 50 ML IV SCH (09:58)
[2017-08-05 14:26] VITALS: BP 145/84
[2017-08-05] MEDS: NICOTINE 21 MG/24 HR PATCH.TD24 TD SCH (16:39)
[2017-08-05 19:01] VITALS: BP 141/94
[2017-08-05] MEDS: LORazepam 2 MG/ML, 1ML IVPush PRN ×2 (19:10→20:22)
[2017-08-06] MEDS: LORazepam 2 MG/ML, 1ML IVPush PRN ×3 (00:50→22:29)
[2017-08-06 02:15] VITALS: BP 139/84
[2017-08-06] MEDS: HYDROmorphone 2 MG/ML, 1ML IVPush PRN ×6 (03:13→20:25)
[2017-08-06 05:40] LABS: HEMATOCRIT 28.7 % (34.6-47.8); HEMOGLOBIN 9.5 g/dL (11.7-16.4); WHITE BLOOD COUNT 4.9 x10^3/uL (3.4-10)
[2017-08-06 06:00] LABS: ASPARTATE AMINO TRANSFERASE 173 U/L (15-37); BLOOD UREA NITROGEN 3 mg/dL (7-18)
[2017-08-06] MEDS ORDERED: ALBUTEROL SULFATE 2.5 MG/3 ML NPPB SCH (06:00)
[2017-08-06 06:20] LABS: DIFF TOTAL CELLS COUNTED 100 CELL DIFF
[2017-08-06 06:24] LABS: ANISOCYTOSIS 1+; OVALOCYTES 1+; POLYCHROMASIA 1+; VERIFY COUNTS? YES
[2017-08-06 06:50] VITALS: BP 127/85
[2017-08-06] MEDS ORDERED: CEFTRIAXONE 1,000 MG in SODIUM CHLORIDE 0.9% 50 ML IV SCH (07:00)
[2017-08-06] MEDS: MOMETASONE FUROATE INH SCH (09:00)
[2017-08-06] MEDS: METOCLOPRAMIDE 5 MG/ML, 2ML IVPush PRN ×2 (09:47→16:38)
[2017-08-06] MEDS: DOCUSATE 100 MG CAPSULE PO PRN (09:48)
[2017-08-06 15:51] VITALS: BP 114/70
[2017-08-06] MEDS ORDERED: POTASSIUM CHLORIDE 40 MEQ in SODIUM CHLORIDE 0.9% 500 ML IV ONE (18:00)
[2017-08-06] MEDS ORDERED: MAGNESIUM SULFATE PMX 2GM/50ML 50 ML IV ONE (18:00)
[2017-08-06 19:28] VITALS: BP 125/82
[2017-08-06] MEDS: CEPHALEXIN 500 MG CAPSULE PO SCH (20:25)
[2017-08-06] MEDS: SPIRONOLACTONE 50 MG TABLET PO SCH (20:25)
[2017-08-06] MEDS: FUROSEMIDE 20 MG TABLET PO SCH (20:25)
[2017-08-06] MEDS: NICOTINE 21 MG/24 HR PATCH.TD24 TD SCH (20:26)
[2017-08-07] MEDS: HYDROmorphone 2 MG/ML, 1ML IVPush PRN ×5 (00:55→17:47)
[2017-08-07 01:50] VITALS: BP 119/80
[2017-08-07 05:25] LABS: HEMATOCRIT 28.7 % (34.6-47.8); HEMOGLOBIN 9.5 g/dL (11.7-16.4); WHITE BLOOD COUNT 4.3 x10^3/uL (3.4-10)
[2017-08-07 05:29] LABS: ASPARTATE AMINO TRANSFERASE 156 U/L (15-37); BLOOD UREA NITROGEN 3 mg/dL (7-18)
[2017-08-07] MEDS: CEPHALEXIN 500 MG CAPSULE PO SCH ×4 (06:22→20:11)
[2017-08-07] MEDS: METOCLOPRAMIDE 5 MG/ML, 2ML IVPush PRN ×2 (06:24→13:01)
[2017-08-07] MEDS ORDERED: ALBUTEROL SULFATE 2.5 MG/3 ML NPPB PRN (06:30)
[2017-08-07 06:41] VITALS: BP 123/80
[2017-08-07] MEDS: MOMETASONE FUROATE INH SCH (09:00)
[2017-08-07] MEDS: FOLIC ACID 1 MG TABLET PO SCH (09:37)
[2017-08-07] MEDS: MULTIVITAMIN 1 TABLET PO SCH (09:37)
[2017-08-07] MEDS: SPIRONOLACTONE 50 MG TABLET PO SCH (09:37)
[2017-08-07] MEDS: POTASSIUM CHLORIDE 20 MEQ TAB.ER.PRT PO SCH (09:38)
[2017-08-07] MEDS: FUROSEMIDE 20 MG TABLET PO SCH ×2 (09:38→17:47)
[2017-08-07] MEDS: THIAMINE 100 MG/ML, 2ML IM SCH (09:38)
[2017-08-07] MEDS: DOCUSATE 100 MG CAPSULE PO PRN (13:01)
[2017-08-07 13:37] LABS: OCCBLD OBC PASS
[2017-08-07 14:23] VITALS: BP 112/70
[2017-08-07] MEDS: NICOTINE 21 MG/24 HR PATCH.TD24 TD SCH (17:48)
[2017-08-07 18:27] VITALS: BP 133/84
[2017-08-07] MEDS ORDERED: FUROSEMIDE 40 MG/4 ML IV ONE (19:30)
[2017-08-07] MEDS: OXYcodone IR 5MG TABLET PO PRN (20:11)
[2017-08-08 00:39] VITALS: BP 117/80
[2017-08-08 05:32] LABS: ASPARTATE AMINO TRANSFERASE 124 U/L (15-37); BLOOD UREA NITROGEN 5 mg/dL (7-18)
[2017-08-08 05:44] LABS: HEMATOCRIT 28.1 % (34.6-47.8); HEMOGLOBIN 9.3 g/dL (11.7-16.4); WHITE BLOOD COUNT 4.7 x10^3/uL (3.4-10)
[2017-08-08 05:54] LABS: DIFF TOTAL CELLS COUNTED 100 CELL DIFF
[2017-08-08 05:55] LABS: ANISOCYTOSIS 1+; VERIFY COUNTS? YES
[2017-08-08 05:56] LABS: OVALOCYTES 1+
[2017-08-08] MEDS ORDERED: CEPHALEXIN 500 MG CAPSULE PO SCH (06:00)
[2017-08-08 07:24] VITALS: BP 115/74
[2017-08-08] MEDS ORDERED: POTASSIUM CHLORIDE 20 MEQ TAB.ER.PRT PO ONE (07:30)
[2017-08-08] MEDS ORDERED: FOLI-17 PO (08:29)
[2017-08-08] MEDS ORDERED: MULT1TAB60 PO (08:29)
[2017-08-08] MEDS: FUROSEMIDE 20 MG TABLET PO SCH (08:50)
[2017-08-08] MEDS: POTASSIUM CHLORIDE 20 MEQ TAB.ER.PRT PO SCH (08:50)
[2017-08-08] MEDS: FOLIC ACID 1 MG TABLET PO SCH (08:51)
[2017-08-08] MEDS: MOMETASONE FUROATE INH SCH (08:51)
[2017-08-08] MEDS: MULTIVITAMIN 1 TABLET PO SCH (08:51)
[2017-08-08] MEDS: SPIRONOLACTONE 50 MG TABLET PO SCH (08:51)
[2017-08-08] MEDS: THIAMINE 100 MG/ML, 2ML IM SCH (08:53)
[2017-08-08] MEDS: OXYcodone IR 5MG TABLET PO PRN (08:55)
[2017-08-08] MEDS ORDERED: FLU VACC QS2017-18 (36MOS+) UP/PF 0.5 ML IM-VACC ONE (09:30)
[2017-08-08] MEDS ORDERED: FURO-93 PO (10:08)
[2017-08-08] MEDS ORDERED: SPIR100T2 PO ×2 (10:08→10:09)
== END 2017-08-08 10:36 | disposition home or self-care (01) | DRG 441 ==
LOC: ED 17:07 → EDIP 17:44 → 3NE 19:24
PROVIDERS: ADMIT Internal Medicine; ATTEND Internal Medicine
DX: K72.90 Hepatic failure, unspecified without coma (principal); K85.20 Alcohol induced acute pancreatitis without necrosis or infection; D69.6 Thrombocytopenia, unspecified; E83.42 Hypomagnesemia; E83.39 Other disorders of phosphorus metabolism; E87.2 Acidosis; N39.0 Urinary tract infection, site not specified; F10.229 Alcohol dependence with intoxication, unspecified; G62.1 Alcoholic polyneuropathy; K70.31 Alcoholic cirrhosis of liver with ascites; J45.909 Unspecified asthma, uncomplicated; I10 Essential (primary) hypertension; K76.0 Fatty (change of) liver, not elsewhere classified; E87.6 Hypokalemia; E53.8 Deficiency of other specified B group vitamins; B96.1 Klebsiella pneumoniae [K. pneumoniae] as the cause of diseases classified elsewhere; F41.9 Anxiety disorder, unspecified; F17.210 Nicotine dependence, cigarettes, uncomplicated; F12.90 Cannabis use, unspecified, uncomplicated; E55.9 Vitamin D deficiency, unspecified; D64.9 Anemia, unspecified; Z81.1 Family history of alcohol abuse and dependence; Z79.899 Other long term (current) drug therapy; Z86.718 Personal history of other venous thrombosis and embolism; Z90.49 Acquired absence of other specified parts of digestive tract
CPT/HCPCS: 36415; 76700; 80053; 80061; 80307; 81001; 82105; 82140; 82272; 82607; 82746; 83690; 83735; 84100; 84703; 85025; 85610; 85730; 87077; 87086; 87186; 90686; 94640; 96361; 96374; 96375; J0696; J1170; J1940; J2405; J3411; J3480; J7042; J7613; G0479; J2060; J2765; J3475; J7030; J7040; J7050; J7120

== ENCOUNTER 2017-08-27 17:07 | Inpatient (IN) | payer MEDICAID ==
[~2017-08-27] VITALS: Ht 165.1 cm; Wt 66.6 kg
[~2017-08-27 17:07] MED LIST changes: +FURO-93 PO; +SPIR100T2 PO
[2017-08-27] MEDS ORDERED: LORazepam 2 MG/ML, 1ML ONE ×2 (17:59→20:07)
[2017-08-27] MEDS ORDERED: LORazepam 2 MG/ML, 1ML IVPush ONE (18:00)
[2017-08-27 18:22] LABS: ASPARTATE AMINO TRANSFERASE 240 U/L (15-37); BLOOD UREA NITROGEN 6 mg/dL (7-18)
[2017-08-27] MEDS ORDERED: SODIUM CHLORIDE 0.9% 1,000ML IVBOLUS ONE ×2 (18:30→20:30)
[2017-08-27 18:42] LABS: HCG UR LOT HCG7030192
[2017-08-27 18:47] LABS: ANISOCYTOSIS 1+; HEMATOCRIT 30.8 % (34.6-47.8); HEMOGLOBIN 10.6 g/dL (11.7-16.4); WHITE BLOOD COUNT 5.4 x10^3/uL (3.4-10)
[2017-08-27 19:12] LABS: HCG UR OBC PASS
[2017-08-27] MEDS ORDERED: MORPHINE SULFATE 4 MG/ML, 1ML IVPush STA (19:27)
[2017-08-27] MEDS ORDERED: ONDANSETRON 2MG/ML, 2ML IVPush ONE (19:30)
[2017-08-27] MEDS ORDERED: morphine SULFATE 10 MG/ML, 1ML ONE (19:31)
[2017-08-27] MEDS ORDERED: LORazepam 2 MG/ML, 1ML IVPush STA (19:59)
[2017-08-27] MEDS ORDERED: CEFTRIAXONE PMX 1GM/50ML 50 ML IV ONE (20:00)
[2017-08-27] MEDS ORDERED: CEFTRIAXONE PMX 1GM/50ML 50 ML ONE (20:06)
[2017-08-27] MEDS ORDERED: LORazepam 2 MG/ML, 1ML IV PRN (20:30)
[2017-08-27] MEDS ORDERED: DOCUSATE 100 MG CAPSULE PO PRN (20:30)
[2017-08-27] MEDS ORDERED: DIPHENHYDRAMINE 50 MG CAPSULE PO PRN (20:30)
[2017-08-27] MEDS ORDERED: ALUMINUM/MAG/SIMETHICONE 30 ML UDC PO PRN (20:30)
[2017-08-27] MEDS ORDERED: DIAZEPAM 5 MG/ML, 2ML IV ONE (20:30)
[2017-08-27 21:42] VITALS: BP 143/90
[2017-08-27] MEDS: BACLOFEN 10 MG TABLET PO SCH (22:18)
[2017-08-27] MEDS: ENOXAPARIN 40 MG/0.4 ML SQ SCH (22:18)
[2017-08-27] MEDS: FUROSEMIDE 20 MG TABLET PO SCH (22:18)
[2017-08-27] MEDS: LORazepam 2 MG/ML, 1ML IV PRN (22:19)
[2017-08-28] MEDS: LORazepam 2 MG/ML, 1ML IV PRN ×4 (01:22→15:26)
[2017-08-28 01:39] VITALS: BP 123/84
[2017-08-28 06:19] LABS: HEMATOCRIT 28.2 % (34.6-47.8); HEMOGLOBIN 9.5 g/dL (11.7-16.4); WHITE BLOOD COUNT 5.6 x10^3/uL (3.4-10)
[2017-08-28 06:22] LABS: BLOOD UREA NITROGEN 5 mg/dL (7-18)
[2017-08-28 06:25] LABS: ASPARTATE AMINO TRANSFERASE 206 U/L (15-37)
[2017-08-28 08:10] VITALS: BP 122/80
[2017-08-28] MEDS: BACLOFEN 10 MG TABLET PO SCH (08:34)
[2017-08-28] MEDS: FUROSEMIDE 20 MG TABLET PO SCH ×2 (08:34→20:26)
[2017-08-28] MEDS: SPIRONOLACTONE 100 MG TABLET PO SCH (08:34)
[2017-08-28] MEDS: THIAMINE 100MG TABLET PO SCH (08:34)
[2017-08-28] MEDS: MULTIVITAMINS/MINERALS TABLET PO SCH (08:34)
[2017-08-28] MEDS: FOLIC ACID 1 MG TABLET PO SCH (08:37)
[2017-08-28] MEDS: CEFTRIAXONE PMX 1GM/50ML 50 ML IV SCH ×2 (08:38→20:23)
[2017-08-28] MEDS ORDERED: LIDOCAINE 1%, 20ML ONE (09:10)
[2017-08-28 10:48] LABS: CELLS COUNTED 17; DILUTION 1; WBC SQUARES COUNTED 3
[2017-08-28] MEDS: HYDROmorphone 2MG TABLET PO PRN ×3 (11:08→19:55)
[2017-08-28 12:48] VITALS: BP 124/82
[2017-08-28 18:47] VITALS: BP 118/80
[2017-08-28] MEDS: ONDANSETRON 2MG/ML, 2ML IV PRN (19:55)
[2017-08-28] MEDS: POTASSIUM CHLORIDE 20 MEQ TAB.ER.PRT PO SCH (20:23)
[2017-08-28] MEDS: ENOXAPARIN 40 MG/0.4 ML SQ SCH (20:23)
[2017-08-29 00:12] VITALS: BP 109/70
[2017-08-29 05:20] LABS: HEMATOCRIT 27.2 % (34.6-47.8); HEMOGLOBIN 9.2 g/dL (11.7-16.4); WHITE BLOOD COUNT 6.2 x10^3/uL (3.4-10)
[2017-08-29 05:50] LABS: ASPARTATE AMINO TRANSFERASE 146 U/L (15-37); BLOOD UREA NITROGEN 7 mg/dL (7-18)
[2017-08-29] MEDS: HYDROmorphone 2MG TABLET PO PRN ×5 (06:37→21:25)
[2017-08-29] MEDS: POTASSIUM CHLORIDE 20 MEQ TAB.ER.PRT PO SCH ×3 (08:00→17:18)
[2017-08-29 08:26] VITALS: BP 109/67
[2017-08-29] MEDS: MULTIVITAMINS/MINERALS TABLET PO SCH (09:58)
[2017-08-29] MEDS: CEFTRIAXONE PMX 1GM/50ML 50 ML IV SCH ×2 (09:58→20:31)
[2017-08-29] MEDS: SPIRONOLACTONE 100 MG TABLET PO SCH (09:58)
[2017-08-29] MEDS: THIAMINE 100MG TABLET PO SCH (09:58)
[2017-08-29] MEDS: FOLIC ACID 1 MG TABLET PO SCH (09:58)
[2017-08-29] MEDS: FUROSEMIDE 20 MG TABLET PO SCH ×2 (09:58→20:31)
[2017-08-29 14:24] VITALS: BP 112/69
[2017-08-29] MEDS: LORazepam 2 MG/ML, 1ML IV PRN ×2 (15:55→23:57)
[2017-08-29 18:34] VITALS: BP 117/75
[2017-08-29] MEDS: ENOXAPARIN 40 MG/0.4 ML SQ SCH (20:31)
[2017-08-30 00:26] VITALS: BP 115/72
[2017-08-30 01:50] VITALS: BP 104/70
[2017-08-30] MEDS: HYDROmorphone 2MG TABLET PO PRN ×4 (02:10→20:32)
[2017-08-30] MEDS: LORazepam 2 MG/ML, 1ML IV PRN (05:34)
[2017-08-30 05:42] LABS: BLOOD UREA NITROGEN 9 mg/dL (7-18)
[2017-08-30] MEDS: POTASSIUM CHLORIDE 20 MEQ TAB.ER.PRT PO SCH ×3 (08:00→16:11)
[2017-08-30] MEDS: CEFTRIAXONE PMX 1GM/50ML 50 ML IV SCH ×2 (08:39→20:31)
[2017-08-30] MEDS: THIAMINE 100MG TABLET PO SCH (08:40)
[2017-08-30] MEDS: MULTIVITAMINS/MINERALS TABLET PO SCH (08:40)
[2017-08-30] MEDS: SPIRONOLACTONE 100 MG TABLET PO SCH (08:40)
[2017-08-30] MEDS: FUROSEMIDE 20 MG TABLET PO SCH ×2 (08:40→20:32)
[2017-08-30] MEDS: FOLIC ACID 1 MG TABLET PO SCH (08:40)
[2017-08-30 10:00] VITALS: BP 115/75
[2017-08-30] MEDS ORDERED: POLYETHYLENE GLYCOL 17 GM PACKET PO ONE (10:30)
[2017-08-30] MEDS ORDERED: MAGNESIUM CITRATE 300ML ORAL SOL PO PRN (10:30)
[2017-08-30] MEDS ORDERED: LORazepam 0.5MG TABLET ONE (11:18)
[2017-08-30] MEDS ORDERED: LORazepam 0.5MG TABLET PO PRN ×2 (11:30→12:30)
[2017-08-30] MEDS ORDERED: LORazepam 1MG TABLET PO PRN ×4 (13:00)
[2017-08-30 14:31] VITALS: BP 116/76
[2017-08-30] MEDS: ONDANSETRON 2MG/ML, 2ML IV PRN (14:48)
[2017-08-30] MEDS ORDERED: BISACODYL 10 MG SUPP PR PRN (15:00)
[2017-08-30] MEDS: LORazepam 0.5MG TABLET PO PRN (17:34)
[2017-08-30] MEDS: ENOXAPARIN 40 MG/0.4 ML SQ SCH (20:31)
[2017-08-30 20:41] VITALS: BP 110/68
[2017-08-31] MEDS: HYDROmorphone 2MG TABLET PO PRN ×3 (00:56→09:25)
[2017-08-31 02:29] VITALS: BP 106/62
[2017-08-31] MEDS: LORazepam 0.5MG TABLET PO PRN (02:44)
[2017-08-31 08:00] VITALS: BP 114/68
[2017-08-31] MEDS: CEFTRIAXONE PMX 1GM/50ML 50 ML IV SCH (09:23)
[2017-08-31] MEDS: ONDANSETRON 2MG/ML, 2ML IV PRN (09:24)
[2017-08-31] MEDS: SPIRONOLACTONE 100 MG TABLET PO SCH (09:24)
[2017-08-31] MEDS: FOLIC ACID 1 MG TABLET PO SCH (09:24)
[2017-08-31] MEDS: POTASSIUM CHLORIDE 20 MEQ TAB.ER.PRT PO SCH (09:24)
[2017-08-31] MEDS: FUROSEMIDE 20 MG TABLET PO SCH (09:24)
[2017-08-31] MEDS: THIAMINE 100MG TABLET PO SCH (09:24)
[2017-08-31] MEDS: MULTIVITAMINS/MINERALS TABLET PO SCH (09:24)
== END 2017-08-31 10:55 | disposition home or self-care (01) | DRG 897 ==
LOC: ED 18:21 → EDIP 19:55 → INTOOBSV 19:55 → OBSVTOIN 20:23 → 4WST 21:48 → DCLOUNGE 08-31 10:45 → UNDODISOB 08-31 10:55
PROVIDERS: ADMIT Hospitalist; ATTEND Hospitalist
PROC: 0W9G3ZZ Drainage of Peritoneal Cavity, Percutaneous Approach (ICD-10-PCS; principal; 2017-08-28)
DX: F10.239 Alcohol dependence with withdrawal, unspecified (principal); D69.6 Thrombocytopenia, unspecified; I85.00 Esophageal varices without bleeding; K76.6 Portal hypertension; J45.909 Unspecified asthma, uncomplicated; S01.512A Laceration without foreign body of oral cavity, initial encounter; N39.0 Urinary tract infection, site not specified; G40.509 Epileptic seizures related to external causes, not intractable, without status epilepticus; E87.6 Hypokalemia; K70.31 Alcoholic cirrhosis of liver with ascites; F41.9 Anxiety disorder, unspecified; I10 Essential (primary) hypertension; X58.XXXA Exposure to other specified factors, initial encounter; K59.00 Constipation, unspecified; K72.10 Chronic hepatic failure without coma; Z87.891 Personal history of nicotine dependence; Y93.89 Activity, other specified; Y92.89 Other specified places as the place of occurrence of the external cause; Y99.8 Other external cause status; Z81.1 Family history of alcohol abuse and dependence; Z79.899 Other long term (current) drug therapy
CPT/HCPCS: 36415; 49083; 80048; 80053; 81001; 81025; 82040; 82042; 82150; 82247; 82945; 83615; 83735; 84100; 84157; 85025; 87070; 87086; 87205; 89051; 93005; 95819; 96361; 96365; 96372; 96375; 96376; 99285; G0378; J0696; J1650; J2060; J2405; J3490; J7030

== ENCOUNTER 2017-11-06 11:59 | Emergency (ER) | payer MEDICAID ==
[~2017-11-06] VITALS: Ht 165.1 cm; Wt 66.0 kg
[2017-11-06] MEDS ORDERED: SODIUM CHLORIDE 0.9% 1,000ML IVBOLUS ONE (12:30)
[2017-11-06] MEDS ORDERED: GABA600T2 PO (12:30)
[2017-11-06] MEDS ORDERED: METO5TAB57 PO ×2 (12:30)
[2017-11-06] MEDS ORDERED: SODIUM CHLORIDE FLUSH 10ML SYR IVF ONE (12:30)
[2017-11-06] MEDS ORDERED: DIAZ2TAB PO (12:30)
[2017-11-06] MEDS ORDERED: ONDANSETRON 2MG/ML, 2ML IVPush ONE (12:30)
[2017-11-06] MEDS ORDERED: ONDANSETRON 2MG/ML, 2ML ONE (12:39)
[2017-11-06] MEDS ORDERED: LIDOCAINE 2%, 20ML ONE (12:46)
[2017-11-06 13:11] LABS: BASOPHILS # (AUTO) 0.04 x10^3/uL (0-0.1); BASOPHILS % (AUTO) 0 % (0-1); EOSINOPHILS # (AUTO) 0.16 x10^3/uL (0-0.4); EOSINOPHILS % (AUTO) 2 % (1-7); LYMPHOCYTES # (AUTO) 1.79 x10^3/uL (1-3.4); LYMPHOCYTES % (AUTO) 17 % (22-44); MD NO; MEAN CORPUSCULAR HEMOGLOBIN 28.5 pg (27.0-34.8); MEAN CORPUSCULAR VOLUME 89.2 fL (80-100); MEAN PLATELET VOLUME 7.8 fL (7.4-10.4); MONOCYTES # (AUTO) 0.67 x10^3/uL (0.2-0.8); MONOCYTES % (AUTO) 7 % (2-9); NEUTROPHILS % (AUTO) 74 % (42-75); PLATELET COUNT 278 x10^3/uL (130-400); RED BLOOD COUNT 3.74 x10^6/uL (3.82-5.3); RED CELL DISTRIBUTION WIDTH 17.9 % (9.6-15.2)
[2017-11-06 13:14] LABS: INTERNATIONAL NORMALIZED RATIO 1.15 (0.93-1.1); PROTHROMBIN TIME 11.8 Seconds (9.6-11.5)
[2017-11-06 13:19] LABS: ALBUMIN 2.7 g/dL (3.4-5.0); ANION GAP 10 mmol/L (5-15); CALCIUM 8.4 mg/dL (8.5-10.1); CHLORIDE 105 mmol/L (98-107)
[2017-11-06 13:24] LABS: ALANINE AMINOTRANSFERASE 53 U/L (12-78); ALKALINE PHOSPHATASE 162 U/L (45-117); BILIRUBIN,TOTAL 1.8 mg/dL (0.2-1.0); CREATININE 0.53 mg/dL (0.55-1.02); TOTAL PROTEIN 8.5 g/dL (6.4-8.2)
[2017-11-06] MEDS ORDERED: LIDOCAINE 1%, 20ML ONE (13:25)
[2017-11-06] MEDS ORDERED: METOCLOPRAMIDE 5 MG/ML, 2ML ONE (15:10)
[2017-11-06] MEDS ORDERED: METOCLOPRAMIDE 5 MG/ML, 2ML IVPush ONE (15:30)
[2017-11-06 15:37] LABS: HCG UR SG 1.016 (1.003-1.030); MICROSCOPIC INDICATED
[2017-11-06 15:52] LABS: CULTURE INDICATED? NO
[2017-11-06 17:08] VITALS: BP 109/52
== END 2017-11-06 17:18 | disposition home or self-care (01) ==
LOC: ED 15:59
DX: R10.9 Unspecified abdominal pain (principal); F10.229 Alcohol dependence with intoxication, unspecified; K70.31 Alcoholic cirrhosis of liver with ascites; I10 Essential (primary) hypertension; Z90.49 Acquired absence of other specified parts of digestive tract; I85.10 Secondary esophageal varices without bleeding; N39.0 Urinary tract infection, site not specified
CPT/HCPCS: 36415; 49083; 74021; 80053; 81001; 81025; 82042; 83615; 83690; 85025; 85610; 85730; 87070; 87205; 89051; 96361; 96374; 96375; 99285; J2405; J2765; J3490; J7030

== ENCOUNTER → 2018-04-02 | Outpatient (CLI) | payer MEDICAID ==
[~2018-04-02] MED LIST changes: +DIAZ2TAB PO; +GABA600T2 PO; +LIDOCAINE-MPF 1%, 2ML ONE; +METO5TAB57 PO
== END | disposition home or self-care (01) ==
LOC: RAD 16:31
PROVIDERS: ATTEND Physician Assistant
DX: K70.30 Alcoholic cirrhosis of liver without ascites (principal); F10.10 Alcohol abuse, uncomplicated; I85.00 Esophageal varices without bleeding; R74.8 Abnormal levels of other serum enzymes
CPT/HCPCS: 49083; J3490

== ENCOUNTER 2018-04-04 18:42 | Emergency (ER) | payer MEDICAID ==
[~2018-04-04] VITALS: Ht 165.1 cm; Wt 65.0 kg
[~2018-04-04 18:42] MED LIST changes: -LIDOCAINE-MPF 1%, 2ML ONE
[2018-04-04 19:36] LABS: INTERNATIONAL NORMALIZED RATIO 1.18 (0.93-1.1); PROTHROMBIN TIME 12.2 Seconds (9.6-11.5)
[2018-04-04 19:40] LABS: ALANINE AMINOTRANSFERASE 131 U/L (12-78); ALBUMIN 3.2 g/dL (3.4-5.0); ANION GAP 11 mmol/L (5-15); CALCIUM 8.2 mg/dL (8.5-10.1); CHLORIDE 104 mmol/L (98-107); CREATININE 0.51 mg/dL (0.55-1.02)
[2018-04-04 19:55] LABS: BASOPHILS # (AUTO) 0.11 x10^3/uL (0-0.1); BASOPHILS % (AUTO) 2 % (0-1); EOSINOPHILS # (AUTO) 0.06 x10^3/uL (0-0.4); EOSINOPHILS % (AUTO) 1 % (1-7); LYMPHOCYTES % (AUTO) 13 % (22-44); MD MORPH REVIEW ONLY; MEAN CORPUSCULAR HEMOGLOBIN 28.6 pg (27.0-34.8); MEAN CORPUSCULAR HGB CONC 33.3 g/dL (32.4-35.8); MEAN CORPUSCULAR VOLUME 85.7 fL (80-100); MEAN PLATELET VOLUME 8.9 fL (7.4-10.4); MONOCYTES # (AUTO) 0.58 x10^3/uL (0.2-0.8); MONOCYTES % (AUTO) 8 % (2-9); NEUTROPHILS # (AUTO) 5.73 x10^3/uL (1.8-6.8); NEUTROPHILS % (AUTO) 77 % (42-75); PLATELET COUNT 89 x10^3/uL (130-400); RED BLOOD COUNT 3.53 x10^6/uL (3.82-5.3); RED CELL DISTRIBUTION WIDTH 25.4 % (9.6-15.2)
[2018-04-04 19:56] LABS: MICROSCOPIC INDICATED
[2018-04-04 19:59] LABS: ANISOCYTOSIS 2+; OVALOCYTES 1+
[2018-04-04 20:00] LABS: ALKALINE PHOSPHATASE 204 U/L (45-117); BILIRUBIN,TOTAL 2.6 mg/dL (0.2-1.0); TOTAL PROTEIN 7.8 g/dL (6.4-8.2)
[2018-04-04 20:01] LABS: <PLATELET ESTIMATE> DECREASED; POLYCHROMASIA 1+
[2018-04-04 20:02] LABS: LARGE PLATELETS 1+
[2018-04-04 20:05] LABS: HCG UR SG 1.029 (1.003-1.030)
[2018-04-04 20:09] LABS: CULTURE INDICATED? YES
[2018-04-04 22:11] VITALS: BP 124/62
== END 2018-04-04 22:13 | disposition home or self-care (01) ==
LOC: ED 21:20
DX: K70.31 Alcoholic cirrhosis of liver with ascites (principal); F10.10 Alcohol abuse, uncomplicated; I10 Essential (primary) hypertension; Z86.718 Personal history of other venous thrombosis and embolism; Z90.49 Acquired absence of other specified parts of digestive tract; Z79.899 Other long term (current) drug therapy
CPT/HCPCS: 36415; 71045; 74021; 80053; 80307; 81001; 81025; 83690; 85025; 85610; 87086; 99285

== ENCOUNTER 2018-07-09 14:22 | Emergency (ER) | payer MEDICAID ==
[~2018-07-09] VITALS: Ht 165.1 cm; Wt 69.5 kg
[~2018-07-09 14:22] MED LIST changes: -AMLO5TAB2 PO; +AMLO5TAB7 PO; -CLON2TAB2 PO; +CLON2TAB9 PO; -SPIR100T2 PO; +SPIR100T4 PO; -THIA100T6 PO; +THIA100T67 PO; +TRAZ-136 PO; +TRAZ-137 PO; -TRAZ100T15 PO; -TRAZ50TA18 PO
[2018-07-09] MEDS ORDERED: SODIUM CHLORIDE FLUSH 10ML SYR IVF ONE (15:00)
[2018-07-09 15:01] LABS: MEAN CORPUSCULAR HEMOGLOBIN 24.3 pg (27.0-34.8); MEAN CORPUSCULAR HGB CONC 32.3 g/dL (32.4-35.8); MEAN CORPUSCULAR VOLUME 75.4 fL (80-100); MEAN PLATELET VOLUME 9.6 fL (7.4-10.4); PLATELET COUNT 131 x10^3/uL (130-400); RED BLOOD COUNT 4.37 x10^6/uL (3.82-5.3); RED CELL DISTRIBUTION WIDTH 24.5 % (9.6-15.2)
[2018-07-09 15:07] LABS: ALANINE AMINOTRANSFERASE 130 U/L (12-78); ALBUMIN 3.4 g/dL (3.4-5.0); ANION GAP 11 mmol/L (5-15); CALCIUM 7.9 mg/dL (8.5-10.1); CHLORIDE 109 mmol/L (98-107)
[2018-07-09 15:09] LABS: ALKALINE PHOSPHATASE 190 U/L (45-117); BILIRUBIN,TOTAL 1.8 mg/dL (0.2-1.0); TOTAL PROTEIN 8.3 g/dL (6.4-8.2)
[2018-07-09 15:50] LABS: BASOPHILS # (AUTO) 0.02 x10^3/uL (0-0.1); BASOPHILS % (AUTO) 1 % (0-1); EOSINOPHILS # (AUTO) 0.04 x10^3/uL (0-0.4); EOSINOPHILS % (AUTO) 1 % (1-7); LYMPHOCYTES # (AUTO) 1.56 x10^3/uL (1-3.4); LYMPHOCYTES % (AUTO) 32 % (22-44); MD SCAN; MONOCYTES # (AUTO) 0.51 x10^3/uL (0.2-0.8); MONOCYTES % (AUTO) 11 % (2-9); NEUTROPHILS # (AUTO) 2.74 x10^3/uL (1.8-6.8); NEUTROPHILS % (AUTO) 56 % (42-75)
[2018-07-09] MEDS ORDERED: ONDANSETRON ODT 8 MG ONE (16:08)
[2018-07-09] MEDS ORDERED: LIDOCAINE-MPF 1%, 5ML ONE (16:22)
[2018-07-09] MEDS ORDERED: ONDANSETRON ODT 8 MG PO ONE (16:30)
[2018-07-09 19:43] VITALS: BP 106/65
== END 2018-07-09 19:45 | disposition home or self-care (01) ==
LOC: ED 19:39
DX: K70.31 Alcoholic cirrhosis of liver with ascites (principal); F10.220 Alcohol dependence with intoxication, uncomplicated; R10.84 Generalized abdominal pain; Z71.41 Alcohol abuse counseling and surveillance of alcoholic
CPT/HCPCS: 36415; 49083; 80053; 80307; 83690; 85025; 87070; 87205; 89051; 99285; Q0162

== ENCOUNTER 2018-07-14 13:35 | Emergency (ER) | payer MEDICAID ==
[~2018-07-14] VITALS: Ht 165.1 cm; Wt 66.4 kg
[2018-07-14] MEDS ORDERED: SODIUM CHLORIDE 0.9% 1,000 ML IV ONE (13:56)
[2018-07-14] MEDS ORDERED: SODIUM CHLORIDE FLUSH 10ML SYR IVF ONE (14:00)
[2018-07-14 14:34] LABS: ALANINE AMINOTRANSFERASE 279 U/L (12-78); ALBUMIN 3.5 g/dL (3.4-5.0); ANION GAP 14 mmol/L (5-15); CALCIUM 8.6 mg/dL (8.5-10.1); CHLORIDE 101 mmol/L (98-107); CREATININE 0.66 mg/dL (0.55-1.02)
[2018-07-14 14:39] LABS: ALKALINE PHOSPHATASE 228 U/L (45-117); BILIRUBIN,TOTAL 3.7 mg/dL (0.2-1.0); TOTAL PROTEIN 8.8 g/dL (6.4-8.2)
[2018-07-14 14:42] LABS: MEAN CORPUSCULAR HEMOGLOBIN 23.8 pg (27.0-34.8); MEAN CORPUSCULAR HGB CONC 32.1 g/dL (32.4-35.8); MEAN CORPUSCULAR VOLUME 74.2 fL (80-100); MEAN PLATELET VOLUME 9.1 fL (7.4-10.4); PLATELET COUNT 139 x10^3/uL (130-400); RED BLOOD COUNT 4.42 x10^6/uL (3.82-5.3); RED CELL DISTRIBUTION WIDTH 23.8 % (9.6-15.2)
[2018-07-14 14:48] LABS: INTERNATIONAL NORMALIZED RATIO 1.29 (0.93-1.1); PROTHROMBIN TIME 13.2 Seconds (9.6-11.5)
[2018-07-14 14:54] LABS: BASOPHILS # (AUTO) 0.02 x10^3/uL (0-0.1); BASOPHILS % (AUTO) 1 % (0-1); EOSINOPHILS # (AUTO) 0.03 x10^3/uL (0-0.4); EOSINOPHILS % (AUTO) 1 % (1-7); LYMPHOCYTES # (AUTO) 0.74 x10^3/uL (1-3.4); LYMPHOCYTES % (AUTO) 18 % (22-44); MD MORPH REVIEW ONLY; MONOCYTES # (AUTO) 0.18 x10^3/uL (0.2-0.8); MONOCYTES % (AUTO) 4 % (2-9); NEUTROPHILS # (AUTO) 3.12 x10^3/uL (1.8-6.8); NEUTROPHILS % (AUTO) 76 % (42-75)
[2018-07-14 14:56] LABS: <PLATELET ESTIMATE> ADEQUATE; <PLT MORPHOLOGY> NORMAL PLT MORPH; ANISOCYTOSIS 2+; HYPOCHROMIA 1+; OVALOCYTES 1+; POLYCHROMASIA 1+
[2018-07-14 15:33] VITALS: BP 138/91
== END 2018-07-14 15:49 | disposition home or self-care (01) ==
LOC: ED 14:15
DX: R11.2 Nausea with vomiting, unspecified (principal); R19.7 Diarrhea, unspecified; R10.84 Generalized abdominal pain; K70.31 Alcoholic cirrhosis of liver with ascites; D53.9 Nutritional anemia, unspecified; I10 Essential (primary) hypertension; Z88.8 Allergy status to other drugs, medicaments and biological substances
CPT/HCPCS: 36415; 74021; 80053; 80307; 82140; 83690; 84703; 85025; 85610; 86850; 86900; 96360; 99285; J7030

== ENCOUNTER 2018-08-03 10:28 | Emergency (ER) | payer MEDICAID ==
[~2018-08-03] VITALS: Ht 165.1 cm; Wt 72.0 kg
[2018-08-03] MEDS ORDERED: SODIUM CHLORIDE FLUSH 10ML SYR IVF ONE (11:30)
[2018-08-03] MEDS ORDERED: LIDOCAINE-MPF 1%, 5ML ONE (11:48)
[2018-08-03 12:27] LABS: MEAN CORPUSCULAR HEMOGLOBIN 24.8 pg (27.0-34.8); MEAN CORPUSCULAR HGB CONC 33.1 g/dL (32.4-35.8); MEAN CORPUSCULAR VOLUME 74.9 fL (80-100); MEAN PLATELET VOLUME 8.9 fL (7.4-10.4); PLATELET COUNT 122 x10^3/uL (130-400); RED BLOOD COUNT 3.75 x10^6/uL (3.82-5.3); RED CELL DISTRIBUTION WIDTH 22.2 % (9.6-15.2)
[2018-08-03 12:29] LABS: INTERNATIONAL NORMALIZED RATIO 1.25 (0.93-1.1); PROTHROMBIN TIME 12.9 Seconds (9.6-11.5)
[2018-08-03 12:30] LABS: ALANINE AMINOTRANSFERASE 131 U/L (12-78); ALBUMIN 2.9 g/dL (3.4-5.0); ANION GAP 13 mmol/L (5-15); CALCIUM 8.1 mg/dL (8.5-10.1); CHLORIDE 103 mmol/L (98-107); CREATININE 0.52 mg/dL (0.55-1.02)
[2018-08-03 12:32] LABS: ALKALINE PHOSPHATASE 181 U/L (45-117); BILIRUBIN,TOTAL 2.3 mg/dL (0.2-1.0); TOTAL PROTEIN 8.2 g/dL (6.4-8.2)
[2018-08-03 12:55] LABS: BASOPHILS # (AUTO) 0.04 x10^3/uL (0-0.1); BASOPHILS % (AUTO) 1 % (0-1); EOSINOPHILS # (AUTO) 0.02 x10^3/uL (0-0.4); EOSINOPHILS % (AUTO) 1 % (1-7); LYMPHOCYTES # (AUTO) 0.85 x10^3/uL (1-3.4); LYMPHOCYTES % (AUTO) 29 % (22-44); MD MORPH REVIEW ONLY; MONOCYTES # (AUTO) 0.21 x10^3/uL (0.2-0.8); MONOCYTES % (AUTO) 7 % (2-9); NEUTROPHILS # (AUTO) 1.79 x10^3/uL (1.8-6.8); NEUTROPHILS % (AUTO) 62 % (42-75)
[2018-08-03 12:56] LABS: ANISOCYTOSIS 2+; HYPOCHROMIA 1+; MICROCYTOSIS 1+; OVALOCYTES 1+
[2018-08-03 12:57] LABS: <PLATELET ESTIMATE> DECREASED; <PLT MORPHOLOGY> NORMAL PLT MORPH
[2018-08-03 13:07] LABS: HCG UR SG 1.029 (1.003-1.030); MICROSCOPIC INDICATED
[2018-08-03 13:28] LABS: CULTURE INDICATED? YES
[2018-08-03 13:31] LABS: CELLS COUNTED 46
[2018-08-03 14:05] VITALS: BP 110/62
== END 2018-08-03 15:25 | disposition home or self-care (01) ==
LOC: ED 10:45
DX: K70.31 Alcoholic cirrhosis of liver with ascites (principal); R10.84 Generalized abdominal pain; I10 Essential (primary) hypertension; F17.200 Nicotine dependence, unspecified, uncomplicated; Z90.49 Acquired absence of other specified parts of digestive tract
CPT/HCPCS: 36415; 49083; 80053; 80307; 81001; 81025; 82042; 83615; 83690; 85025; 85610; 85730; 87070; 87086; 87205; 89051; 99285

== ENCOUNTER 2018-08-25 12:34 | Emergency (ER) | payer MEDICAID ==
[~2018-08-25] VITALS: Ht 165.1 cm; Wt 70.0 kg
[~2018-08-25 12:34] MED LIST changes: +AMLO-150 PO; -AMLO5TAB7 PO; -TRAZ-136 PO; +TRAZ50TA66 PO
[2018-08-25 13:02] VITALS: BP 133/82
== END 2018-08-25 13:50 | disposition home or self-care (01) ==
LOC: ED 13:44
DX: K70.31 Alcoholic cirrhosis of liver with ascites (principal); I10 Essential (primary) hypertension; Z87.19 Personal history of other diseases of the digestive system
CPT/HCPCS: 93005; 99283

== ENCOUNTER → 2018-09-07 | Outpatient (CLI) | payer MEDICAID ==
[~2018-09-07] MED LIST changes: +LIDOCAINE-MPF 1%, 5ML ONE
== END | disposition home or self-care (01) ==
LOC: RAD 08:47
PROVIDERS: ATTEND Physician Assistant
DX: K70.11 Alcoholic hepatitis with ascites (principal); K70.30 Alcoholic cirrhosis of liver without ascites; I85.00 Esophageal varices without bleeding
CPT/HCPCS: 49083

== ENCOUNTER 2018-09-17 22:17 | Emergency (ER) | payer MEDICAID ==
[~2018-09-17] VITALS: Ht 165.1 cm; Wt 66.0 kg
[~2018-09-17 22:17] MED LIST changes: -LIDOCAINE-MPF 1%, 5ML ONE
[2018-09-17 23:33] LABS: MEAN CORPUSCULAR HEMOGLOBIN 24.5 pg (27.0-34.8); MEAN CORPUSCULAR HGB CONC 33.3 g/dL (32.4-35.8); MEAN CORPUSCULAR VOLUME 73.5 fL (80-100); MEAN PLATELET VOLUME 8.3 fL (7.4-10.4); PLATELET COUNT 159 x10^3/uL (130-400); RED BLOOD COUNT 3.67 x10^6/uL (3.82-5.3); RED CELL DISTRIBUTION WIDTH 22.1 % (9.6-15.2)
[2018-09-17 23:39] LABS: ALANINE AMINOTRANSFERASE 87 U/L (12-78); ALBUMIN 2.9 g/dL (3.4-5.0); ANION GAP 14 mmol/L (5-15); CALCIUM 8.1 mg/dL (8.5-10.1); CHLORIDE 108 mmol/L (98-107); CREATININE 0.58 mg/dL (0.55-1.02)
[2018-09-17 23:41] LABS: ALKALINE PHOSPHATASE 179 U/L (45-117); BILIRUBIN,TOTAL 1.8 mg/dL (0.2-1.0); TOTAL PROTEIN 7.4 g/dL (6.4-8.2)
[2018-09-17 23:58] LABS: BASOPHILS # (AUTO) 0.04 x10^3/uL (0-0.1); BASOPHILS % (AUTO) 1 % (0-1); EOSINOPHILS # (AUTO) 0.02 x10^3/uL (0-0.4); EOSINOPHILS % (AUTO) 0 % (1-7); LYMPHOCYTES # (AUTO) 1.05 x10^3/uL (1-3.4); LYMPHOCYTES % (AUTO) 24 % (22-44); MD MORPH REVIEW ONLY; MONOCYTES % (AUTO) 7 % (2-9); NEUTROPHILS # (AUTO) 2.98 x10^3/uL (1.8-6.8); NEUTROPHILS % (AUTO) 68 % (42-75)
[2018-09-17 23:59] LABS: <PLATELET ESTIMATE> ADEQUATE; ANISOCYTOSIS 2+; HYPOCHROMIA 1+; MICROCYTOSIS 1+; OVALOCYTES 1+; POLYCHROMASIA 1+
[2018-09-18] LABS: <PLT MORPHOLOGY> NORMAL PLT MORPH
[2018-09-18 00:27] LABS: HCG UR SG 1.023 (1.003-1.030)
[2018-09-18 00:32] LABS: MICROSCOPIC INDICATED
[2018-09-18 00:46] LABS: CULTURE INDICATED? YES
[2018-09-18 02:26] VITALS: BP 108/48
== END 2018-09-18 02:29 | disposition home or self-care (01) ==
LOC: ED 22:46
DX: R10.31 Right lower quadrant pain (principal); R10.32 Left lower quadrant pain; F10.120 Alcohol abuse with intoxication, uncomplicated; Z72.9 Problem related to lifestyle, unspecified; I10 Essential (primary) hypertension
CPT/HCPCS: 36415; 80053; 80307; 81001; 81025; 83690; 85025; 87077; 87086; 87186; 99283

== ENCOUNTER 2018-10-01 20:37 | Emergency (ER) | payer MEDICAID ==
[~2018-10-01] VITALS: Ht 165.1 cm; Wt 65.0 kg
--- NOTE | 2018-10-01 20:51 | NUR ---
Provider to bedside for pt eval complete. Pt reports having low abd pain and low back pain for a few days for which pt was seen at her primary care and given abx for UTI. Pt states she does not know her abx name. Pt states pain worse today. pt states she takes dilaudid for chronic back pain but has not taken any today because "I wanted to scale my pain." back pain not new, abd pain new. Pt denies N/V, pt reports softer stools than normal but denies diarrhea. Pt reports painful to abd when urinating or having BM. Pt a/o x4, breathing E/U. Pt conversing well. warm blanket provided. VSS. call light in reach.
--- NOTE | 2018-10-01 21:06 | NUR ---
Pt ambulated to restroom for urine collection.
[2018-10-01 21:08] LABS: BASOPHILS # (AUTO) 0.08 x10^3/uL (0-0.1); BASOPHILS % (AUTO) 2 % (0-1); EOSINOPHILS # (AUTO) 0.04 x10^3/uL (0-0.4); EOSINOPHILS % (AUTO) 1 % (1-7); LYMPHOCYTES # (AUTO) 1.21 x10^3/uL (1-3.4); LYMPHOCYTES % (AUTO) 32 % (22-44); MD NO; MEAN CORPUSCULAR HEMOGLOBIN 24.4 pg (27.0-34.8); MEAN CORPUSCULAR HGB CONC 32.6 g/dL (32.4-35.8); MEAN CORPUSCULAR VOLUME 74.8 fL (80-100); MEAN PLATELET VOLUME 8.3 fL (7.4-10.4); MONOCYTES # (AUTO) 0.32 x10^3/uL (0.2-0.8); MONOCYTES % (AUTO) 8 % (2-9); NEUTROPHILS % (AUTO) 57 % (42-75); PLATELET COUNT 171 x10^3/uL (130-400); RED BLOOD COUNT 4.22 x10^6/uL (3.82-5.3); RED CELL DISTRIBUTION WIDTH 21.8 % (9.6-15.2)
--- NOTE | 2018-10-01 21:17 | NUR ---
Pt ambulated back to bed with steady gait, urine sent to lab. Pt VSS, VS monitoring continues, pt resting playing music on her phone in her room. no acute distress noted. will monitor. call light in reach.
[2018-10-01 21:23] LABS: ALANINE AMINOTRANSFERASE 60 U/L (12-78); ALBUMIN 2.9 g/dL (3.4-5.0); ANION GAP 14 mmol/L (5-15); CALCIUM 7.9 mg/dL (8.5-10.1); CHLORIDE 112 mmol/L (98-107); CREATININE 0.58 mg/dL (0.55-1.02)
[2018-10-01 21:28] LABS: ALKALINE PHOSPHATASE 176 U/L (45-117); BILIRUBIN,TOTAL 1.4 mg/dL (0.2-1.0); TOTAL PROTEIN 7.8 g/dL (6.4-8.2)
--- NOTE | 2018-10-01 21:49 | NUR ---
PT CONTINUES TO REST IN BED, NO DISTRESS, BREATHING E/U. NO CHANGES.
[2018-10-01 21:59] LABS: MICROSCOPIC INDICATED
[2018-10-01 22:01] VITALS: BP 118/76
[2018-10-01 22:06] LABS: CULTURE INDICATED? YES
--- NOTE | 2018-10-01 22:34 | NUR ---
PT RESTING IN BED, TALKING ON PHONE. VSS. PT CONVERSES WELL. BREATHING E/U, APPEARS COMFORTABLE IN BED. NO DISTRESS NOTED.
--- NOTE | 2018-10-01 22:52 | NUR ---
PT AWAITING PROVIDER UPDATE.
--- NOTE | 2018-10-01 22:58 | NUR ---
MD TO BEDSIDE FOR PT UPDATE.
--- NOTE | 2018-10-01 23:08 | NUR ---
PT IS GETTING DRESSED. IV REMOVED, TIP INTACT. PT REPORTS SHE IS UNSURE WHERE SHE WANTS TO GO AT D/C AND WILL CALL HER MOM FOR RIDE.
== END 2018-10-01 23:27 | disposition home or self-care (01) ==
LOC: ED 22:03
DX: R10.84 Generalized abdominal pain (principal); I10 Essential (primary) hypertension; E78.5 Hyperlipidemia, unspecified; Z87.19 Personal history of other diseases of the digestive system
CPT/HCPCS: 36415; 80053; 81001; 83690; 84703; 85025; 87086; 99283

== ENCOUNTER 2018-10-29 03:23 | Emergency (ER) | payer MEDICAID ==
[~2018-10-29] VITALS: Ht 165.1 cm; Wt 65.0 kg
[~2018-10-29 03:23] MED LIST changes: -GABA600T2 PO; +GABA600T7 PO
--- NOTE | 2018-10-29 03:47 | NUR ---
PT BIB [facility] FOR ABD PAIN WITH N/V FOR MULTIPLE DAYS. PT HAS HX OF CIRROHSIS. PT ADMITS TO SELF MEDICATING WITH APPROX 1 L OF VODKA TODAY. VSS. PT APEARS UNCOMFORTABLE. CALL LIGHT IN REACH
[2018-10-29] MEDS ORDERED: ONDANSETRON ODT 4 MG PO ONE (04:00)
[2018-10-29] MEDS ORDERED: ONDANSETRON ODT 4 MG ONE (04:01)
[2018-10-29 04:26] LABS: ALANINE AMINOTRANSFERASE 139 U/L (12-78); ALBUMIN 2.9 g/dL (3.4-5.0); ANION GAP 14 mmol/L (5-15); CALCIUM 7.7 mg/dL (8.5-10.1); CHLORIDE 107 mmol/L (98-107); CREATININE 0.57 mg/dL (0.55-1.02)
[2018-10-29 04:31] LABS: ALKALINE PHOSPHATASE 199 U/L (45-117); BILIRUBIN,TOTAL 2.6 mg/dL (0.2-1.0); MEAN CORPUSCULAR HEMOGLOBIN 23.2 pg (27.0-34.8); MEAN CORPUSCULAR HGB CONC 31.5 g/dL (32.4-35.8); MEAN CORPUSCULAR VOLUME 73.8 fL (80-100); PLATELET COUNT 127 x10^3/uL (130-400); RED BLOOD COUNT 3.95 x10^6/uL (3.82-5.3); RED CELL DISTRIBUTION WIDTH 25.3 % (9.6-15.2); TOTAL PROTEIN 8.2 g/dL (6.4-8.2)
--- NOTE | 2018-10-29 04:35 | NUR ---
PT SLEEPING. VSS. PT UNABLE TO PROVIDE UA AT THIS TIME. CALL LIGHT IN REACH
[2018-10-29 05:04] LABS: BASOPHILS # (AUTO) 0.02 x10^3/uL (0-0.1); BASOPHILS % (AUTO) 1 % (0-1); EOSINOPHILS # (AUTO) 0.01 x10^3/uL (0-0.4); EOSINOPHILS % (AUTO) 0 % (1-7); LYMPHOCYTES # (AUTO) 1.07 x10^3/uL (1-3.4); LYMPHOCYTES % (AUTO) 28 % (22-44); MD SCAN; MONOCYTES % (AUTO) 16 % (2-9); NEUTROPHILS % (AUTO) 55 % (42-75)
--- NOTE | 2018-10-29 05:04 | NUR ---
UA TAKEN TO LAB. PT RESTING. CALL LIGHT IN REACH
[2018-10-29 05:10] LABS: MICROSCOPIC INDICATED
[2018-10-29 05:11] LABS: CULTURE INDICATED? YES
--- NOTE | 2018-10-29 05:51 | NUR ---
us at bedside per md request. pt placed on 2 l o2 to maintain sats while sleeping due to intoxication. call light in reach
--- NOTE | 2018-10-29 06:29 | NUR ---
Patient given discharge instructions and they have confirmed that they understand the instructions. Patient ambulatory with steady gait.
[2018-10-29 06:30] VITALS: BP 126/68
== END 2018-10-29 06:45 | disposition home or self-care (01) ==
LOC: ED 03:48
DX: K29.20 Alcoholic gastritis without bleeding (principal); F10.220 Alcohol dependence with intoxication, uncomplicated; I10 Essential (primary) hypertension; E78.5 Hyperlipidemia, unspecified; Z86.19 Personal history of other infectious and parasitic diseases
CPT/HCPCS: 36415; 80053; 80307; 81001; 83690; 84703; 85025; 87077; 87086; 87186; 99284; Q0162; 99283

== ENCOUNTER 2018-11-01 08:48 | Inpatient (IN) | payer MEDICAID ==
[~2018-11-01] VITALS: Ht 165.1 cm; Wt 70.6 kg
--- NOTE | 2018-11-01 08:50 | NUR ---
PT GIVEN NS 500 CC BOLUS AND 4 MG ZOFRAN BY EMS.
[2018-11-01 09:43] LABS: MEAN CORPUSCULAR HEMOGLOBIN 22.8 pg (27.0-34.8); MEAN CORPUSCULAR HGB CONC 31.1 g/dL (32.4-35.8); MEAN CORPUSCULAR VOLUME 73.1 fL (80-100); MEAN PLATELET VOLUME 8.7 fL (7.4-10.4); PLATELET COUNT 167 x10^3/uL (130-400); RED BLOOD COUNT 4.29 x10^6/uL (3.82-5.3); RED CELL DISTRIBUTION WIDTH 25.1 % (9.6-15.2)
--- NOTE | 2018-11-01 09:49 | NUR ---
Report from RAMO Castro.
[2018-11-01] MEDS ORDERED: HYDROmorphone 1 MG/ML, 1ML ONE (09:51)
[2018-11-01 09:54] LABS: ALBUMIN 2.9 g/dL (3.4-5.0); ANION GAP 12 mmol/L (5-15); CALCIUM 8.2 mg/dL (8.5-10.1); CHLORIDE 103 mmol/L (98-107)
[2018-11-01 09:58] LABS: MD YES
[2018-11-01 10:00] LABS: ALANINE AMINOTRANSFERASE 136 U/L (12-78); ALKALINE PHOSPHATASE 227 U/L (45-117); BAND#(MANUAL) 0.05 x10^3/uL; BANDS%(MANUAL) 1 % (0-7); BASOS% (MANUAL) 2 % (0-1); BILIRUBIN,TOTAL 4.1 mg/dL (0.2-1.0); CREATININE 0.55 mg/dL (0.55-1.02); EOS#(MANUAL) 0.05 x10^3/uL (0.0-0.4); EOS% (MANUAL) 1 % (1-7); LYMPH#(MANUAL) 0.78 x10^3/uL (1-3.4); LYMPHS% (MANUAL) 15 % (22-44); MONOS#(MANUAL) 0.26 x10^3/uL (0.3-2.7); MONOS% (MANUAL) 5 % (2-9); SEG#(MANUAL) 3.95 x10^3/uL (1.8-6.8); SEGS% (MANUAL) 76 % (42-75); TOTAL PROTEIN 8.1 g/dL (6.4-8.2)
[2018-11-01 10:01] LABS: <PLATELET ESTIMATE> ADEQUATE; <PLT MORPHOLOGY> NORMAL PLT MORPH; ANISOCYTOSIS 1+; HYPOCHROMIA 1+; MICROCYTOSIS 1+; OVALOCYTES 1+; POLYCHROMASIA 1+; TARGET CELLS 1+
--- NOTE | 2018-11-01 10:50 | NUR ---
Resting in [facility]. Plan is for admit. No other needs.
[2018-11-01] MEDS ORDERED: SODIUM CHLORIDE 0.9% 1,000 ML IV ONE (11:01)
--- NOTE | 2018-11-01 11:20 | NUR ---
Report to RAMO Sandhu.
[2018-11-01] MEDS ORDERED: SODIUM CHLORIDE FLUSH 10ML SYR IVF PRN (11:30)
[2018-11-01] MEDS ORDERED: LORazepam 1MG TABLET PO PRN ×2 (12:30)
[2018-11-01] MEDS: NICOTINE 7 MG/24 HR PATCH.TD24 TD SCH (13:12)
[2018-11-01] MEDS: THIAMINE 100MG TABLET PO SCH ×2 (13:12→20:09)
[2018-11-01] MEDS: LORazepam 2 MG/ML, 1ML IV PRN ×2 (13:12→22:09)
[2018-11-01] MEDS: MVI ADULT 10 ML, FOLIC ACID 1 MG in D5%-0.9% NACL 1,000 ML IV SCH (13:30)
[2018-11-01] MEDS: ONDANSETRON 2MG/ML, 2ML IVPush PRN ×2 (13:30→20:08)
[2018-11-01] MEDS: morphine SULFATE 10 MG/ML, 1ML IVPush PRN ×3 (13:30→20:08)
[2018-11-01 15:00] VITALS: BP 119/80
[2018-11-01] MEDS: LACTOBACILLUS CHEW TABLET PO SCH ×2 (16:44→20:08)
[2018-11-01 19:20] VITALS: BP 135/86
[2018-11-02] MEDS: morphine SULFATE 10 MG/ML, 1ML IVPush PRN ×7 (00:21→21:43)
[2018-11-02 02:19] VITALS: BP 130/80
[2018-11-02] MEDS: ONDANSETRON 2MG/ML, 2ML IVPush PRN ×2 (03:44→17:40)
[2018-11-02] MEDS: LORazepam 2 MG/ML, 1ML IV PRN ×5 (03:44→19:55)
[2018-11-02 05:22] LABS: ANION GAP 8 mmol/L (5-15); CALCIUM 8.2 mg/dL (8.5-10.1); CHLORIDE 104 mmol/L (98-107); CREATININE 0.52 mg/dL (0.55-1.02); MEAN CORPUSCULAR HEMOGLOBIN 23.8 pg (27.0-34.8); MEAN CORPUSCULAR HGB CONC 32.2 g/dL (32.4-35.8); MEAN CORPUSCULAR VOLUME 73.9 fL (80-100); MEAN PLATELET VOLUME 8.8 fL (7.4-10.4); PLATELET COUNT 123 x10^3/uL (130-400); RED BLOOD COUNT 4.19 x10^6/uL (3.82-5.3); RED CELL DISTRIBUTION WIDTH 24.7 % (9.6-15.2)
[2018-11-02 05:28] LABS: % IRON SATURATION 21 % (20-55); CHOLESTEROL, TOTAL 156 mg/dL (140-239); HDL CHOL % 20 % (28-40); HDL CHOLESTEROL (DIRECT) 31 mg/dL (40-60); IRON LEVEL 56 mcg/dL (50-170); LDL CHOLESTEROL,CALCULATED 97 mg/dL (54-169); LDL/HDL RATIO 3.1 (0.5-3.0); TOTAL IRON BINDING CAPACITY 272 mcg/dL (250-450); TRIGLYCERIDES 138 mg/dL (50-200); VLDL CHOLESTEROL 28 mg/dL (0-25)
[2018-11-02 06:23] LABS: BASOPHILS % (AUTO) 0 % (0-1); EOSINOPHILS # (AUTO) 0.04 x10^3/uL (0-0.4); EOSINOPHILS % (AUTO) 1 % (1-7); LYMPHOCYTES % (AUTO) 16 % (22-44); MD SCAN; MONOCYTES # (AUTO) 0.62 x10^3/uL (0.2-0.8); MONOCYTES % (AUTO) 10 % (2-9); NEUTROPHILS # (AUTO) 4.48 x10^3/uL (1.8-6.8); NEUTROPHILS % (AUTO) 73 % (42-75)
[2018-11-02] MEDS ORDERED: PANTOPRAZOLE 40 MG IV IVPush SCH (07:30)
[2018-11-02 07:50] VITALS: BP 144/98
[2018-11-02] MEDS: GUAIFENESIN 200 MG TABLET PO SCH ×2 (08:45→19:54)
[2018-11-02] MEDS: LACTOBACILLUS CHEW TABLET PO SCH ×3 (08:45→19:54)
[2018-11-02] MEDS: THIAMINE 100MG TABLET PO SCH ×2 (08:45→19:55)
[2018-11-02] MEDS: SODIUM CHLORIDE 0.9% 1,000 ML IV SCH (08:46)
[2018-11-02 12:55] VITALS: BP 144/99
[2018-11-02] MEDS: MVI ADULT 10 ML, FOLIC ACID 1 MG in D5%-0.9% NACL 1,000 ML IV SCH (13:32)
[2018-11-02] MEDS: OXYcodone IR 5MG TABLET PO PRN ×2 (13:32→19:41)
[2018-11-02] MEDS: NICOTINE 7 MG/24 HR PATCH.TD24 TD SCH (13:32)
[2018-11-02 21:55] VITALS: BP 142/97
[2018-11-03] MEDS: LORazepam 2 MG/ML, 1ML IV PRN ×3 (00:01→08:33)
[2018-11-03] MEDS: ONDANSETRON 2MG/ML, 2ML IVPush PRN ×3 (00:07→19:55)
[2018-11-03] MEDS: morphine SULFATE 10 MG/ML, 1ML IVPush PRN ×3 (01:53→09:37)
[2018-11-03 02:10] VITALS: BP 130/90
[2018-11-03] MEDS: SODIUM CHLORIDE 0.9% 1,000 ML IV SCH (04:08)
[2018-11-03 04:49] LABS: MEAN CORPUSCULAR HEMOGLOBIN 23.2 pg (27.0-34.8); MEAN CORPUSCULAR VOLUME 74.9 fL (80-100); MEAN PLATELET VOLUME 9.5 fL (7.4-10.4); PLATELET COUNT 89 x10^3/uL (130-400); RED BLOOD COUNT 3.95 x10^6/uL (3.82-5.3)
[2018-11-03 05:42] LABS: BASOPHILS # (AUTO) 0.01 x10^3/uL (0-0.1); BASOPHILS % (AUTO) 0 % (0-1); EOSINOPHILS # (AUTO) 0.05 x10^3/uL (0-0.4); EOSINOPHILS % (AUTO) 1 % (1-7); LYMPHOCYTES % (AUTO) 18 % (22-44); MD SCAN; MONOCYTES # (AUTO) 0.43 x10^3/uL (0.2-0.8); MONOCYTES % (AUTO) 10 % (2-9); NEUTROPHILS # (AUTO) 3.15 x10^3/uL (1.8-6.8); NEUTROPHILS % (AUTO) 71 % (42-75)
[2018-11-03 07:24] VITALS: BP 134/98
[2018-11-03] MEDS: THIAMINE 100MG TABLET PO SCH ×2 (08:33→19:55)
[2018-11-03] MEDS: LACTOBACILLUS CHEW TABLET PO SCH ×3 (08:33→19:55)
[2018-11-03] MEDS: GUAIFENESIN 200 MG TABLET PO SCH ×2 (08:33→19:55)
[2018-11-03] MEDS ORDERED: morphine SULFATE 10 MG/ML, 1ML IVPush PRN (11:30)
[2018-11-03 12:18] VITALS: BP 137/97
[2018-11-03] MEDS: NICOTINE 7 MG/24 HR PATCH.TD24 TD SCH (12:35)
[2018-11-03] MEDS: MVI ADULT 10 ML, FOLIC ACID 1 MG in D5%-0.9% NACL 1,000 ML IV SCH (12:35)
[2018-11-03] MEDS: OXYcodone IR 5MG TABLET PO PRN (16:32)
[2018-11-03 19:11] VITALS: BP 128/84
[2018-11-03] MEDS: LORazepam 0.5MG TABLET PO PRN (19:55)
[2018-11-03] MEDS: ACETAMINOPHEN 325 MG TABLET PO PRN (22:16)
[2018-11-04] MEDS: NICOTINE 7 MG/24 HR PATCH.TD24 TD SCH (00:05)
[2018-11-04] MEDS: OXYcodone IR 5MG TABLET PO PRN ×3 (00:05→16:31)
[2018-11-04] MEDS: LORazepam 0.5MG TABLET PO PRN ×2 (00:49→22:16)
[2018-11-04 00:54] VITALS: BP 126/83
[2018-11-04] MEDS: ONDANSETRON 2MG/ML, 2ML IVPush PRN ×2 (02:39→14:45)
[2018-11-04] MEDS: SODIUM CHLORIDE 0.9% 1,000 ML IV SCH ×2 (02:40→11:45)
[2018-11-04] MEDS ORDERED: OXYcodone IR 5MG TABLET PO ONE (04:00)
[2018-11-04] MEDS: ACETAMINOPHEN 325 MG TABLET PO PRN (04:02)
[2018-11-04 04:59] LABS: INTERNATIONAL NORMALIZED RATIO 1.81 (0.93-1.1); PROTHROMBIN TIME 18.8 Seconds (9.6-11.5)
[2018-11-04 05:02] LABS: ALANINE AMINOTRANSFERASE 95 U/L (12-78); ALBUMIN 2.5 g/dL (3.4-5.0); ANION GAP 6 mmol/L (5-15); CALCIUM 8.3 mg/dL (8.5-10.1); CHLORIDE 104 mmol/L (98-107)
[2018-11-04 05:03] LABS: MEAN CORPUSCULAR HEMOGLOBIN 24.3 pg (27.0-34.8); MEAN CORPUSCULAR HGB CONC 32.4 g/dL (32.4-35.8); MEAN CORPUSCULAR VOLUME 75.2 fL (80-100); MEAN PLATELET VOLUME 8.9 fL (7.4-10.4); PLATELET COUNT 70 x10^3/uL (130-400); RED BLOOD COUNT 3.84 x10^6/uL (3.82-5.3); RED CELL DISTRIBUTION WIDTH 26.3 % (9.6-15.2)
[2018-11-04 05:04] LABS: ALKALINE PHOSPHATASE 182 U/L (45-117); BILIRUBIN,TOTAL 4.7 mg/dL (0.2-1.0); CREATININE 0.66 mg/dL (0.55-1.02); TOTAL PROTEIN 7.2 g/dL (6.4-8.2)
[2018-11-04 05:38] LABS: BASOPHILS # (AUTO) 0.02 x10^3/uL (0-0.1); BASOPHILS % (AUTO) 0 % (0-1); EOSINOPHILS # (AUTO) 0.07 x10^3/uL (0-0.4); EOSINOPHILS % (AUTO) 2 % (1-7); LYMPHOCYTES # (AUTO) 0.55 x10^3/uL (1-3.4); LYMPHOCYTES % (AUTO) 16 % (22-44); MD SCAN; MONOCYTES # (AUTO) 0.34 x10^3/uL (0.2-0.8); MONOCYTES % (AUTO) 10 % (2-9); NEUTROPHILS # (AUTO) 2.49 x10^3/uL (1.8-6.8); NEUTROPHILS % (AUTO) 72 % (42-75)
[2018-11-04] MEDS ORDERED: POTASSIUM CHLORIDE 40 MEQ in SODIUM CHLORIDE 0.9% 500 ML IV ONE (07:00)
[2018-11-04 07:10] VITALS: BP 123/77
[2018-11-04] MEDS: MULTIVITAMIN 1 TABLET PO SCH (08:00)
[2018-11-04] MEDS: FOLIC ACID 1 MG TABLET PO SCH (08:00)
[2018-11-04] MEDS: THIAMINE 100MG TABLET PO SCH ×2 (08:00→22:09)
[2018-11-04] MEDS: GUAIFENESIN 200 MG TABLET PO SCH ×2 (08:00→22:10)
[2018-11-04] MEDS: LACTOBACILLUS CHEW TABLET PO SCH ×3 (08:00→22:09)
[2018-11-04 09:26] LABS: HIT RESULT NEGATIVE (NEGATIVE)
[2018-11-04] MEDS: LORazepam 2 MG/ML, 1ML IV PRN ×2 (09:33→13:34)
[2018-11-04] MEDS: ONDANSETRON ODT 4 MG PO PRN (09:33)
[2018-11-04] MEDS: morphine SULFATE 10 MG/ML, 1ML IVPush PRN ×2 (11:45→17:12)
[2018-11-04] MEDS ORDERED: OMNIPAQUE 350 MG/ML, 100ML BOTTLE ONE (13:01)
[2018-11-04 13:40] VITALS: BP 115/76
[2018-11-04 14:08] VITALS: BP 128/92
[2018-11-04] MEDS: MVI ADULT 10 ML, FOLIC ACID 1 MG in D5%-0.9% NACL 1,000 ML IV SCH (14:45)
[2018-11-04] MEDS: TEMPLATE NON-FORMULARY MED. (Albuterol Sulfate (Proair Hfa) 2 PUFFS) INH SCH ×2 (16:00→22:08)
[2018-11-04] MEDS: GABAPENTIN 300 MG CAPSULE PO SCH ×2 (16:15→22:09)
[2018-11-04 20:02] VITALS: BP 129/93
[2018-11-04] MEDS ORDERED: FUROSEMIDE 20 MG TABLET PO SCH (21:00)
[2018-11-05 00:45] VITALS: BP 132/88
[2018-11-05] MEDS: morphine SULFATE 10 MG/ML, 1ML IVPush PRN ×3 (01:19→20:02)
[2018-11-05] MEDS: OXYcodone IR 5MG TABLET PO PRN ×3 (01:57→18:10)
[2018-11-05] MEDS: TEMPLATE NON-FORMULARY MED. (Albuterol Sulfate (Proair Hfa) 2 PUFFS) INH SCH ×4 (04:32→20:07)
[2018-11-05] MEDS: SODIUM CHLORIDE 0.9% 1,000 ML IV SCH (04:47)
[2018-11-05] MEDS: LORazepam 0.5MG TABLET PO PRN ×4 (04:51→16:40)
[2018-11-05 05:22] LABS: ALANINE AMINOTRANSFERASE 85 U/L (12-78); ALBUMIN 2.5 g/dL (3.4-5.0); ANION GAP 6 mmol/L (5-15); CALCIUM 8.2 mg/dL (8.5-10.1); CHLORIDE 104 mmol/L (98-107); CREATININE 0.68 mg/dL (0.55-1.02)
[2018-11-05 05:25] LABS: ALKALINE PHOSPHATASE 171 U/L (45-117); BILIRUBIN,TOTAL 4.3 mg/dL (0.2-1.0); TOTAL PROTEIN 7.1 g/dL (6.4-8.2)
[2018-11-05] MEDS: POTASSIUM CHLORIDE 20 MEQ TAB.ER.PRT PO SCH ×2 (08:40→16:16)
[2018-11-05] MEDS: GABAPENTIN 300 MG CAPSULE PO SCH ×3 (08:41→20:02)
[2018-11-05] MEDS: GUAIFENESIN 200 MG TABLET PO SCH ×2 (08:41→20:02)
[2018-11-05] MEDS: THIAMINE 100MG TABLET PO SCH ×2 (08:42→20:02)
[2018-11-05] MEDS: MULTIVITAMIN 1 TABLET PO SCH (08:42)
[2018-11-05] MEDS: FOLIC ACID 1 MG TABLET PO SCH ×2 (08:42)
[2018-11-05] MEDS: LACTOBACILLUS CHEW TABLET PO SCH ×3 (08:42→20:02)
[2018-11-05 08:50] VITALS: BP 124/90
[2018-11-05] MEDS ORDERED: SPIRONOLACTONE 100 MG TABLET PO SCH (09:00)
[2018-11-05] MEDS ORDERED: LIDOCAINE-MPF 1%, 5ML ONE ×2 (09:43)
[2018-11-05] MEDS: ONDANSETRON ODT 4 MG PO PRN (09:51)
[2018-11-05 13:30] VITALS: BP 119/77
[2018-11-05] MEDS: NICOTINE 7 MG/24 HR PATCH.TD24 TD SCH (16:18)
[2018-11-05 19:24] VITALS: BP 124/83
[2018-11-05] MEDS: LORazepam 2 MG/ML, 1ML IV PRN (20:32)
[2018-11-05] MEDS: TRAZODONE 100MG TABLET PO PRN (21:44)
[2018-11-06] MEDS: LORazepam 2 MG/ML, 1ML IV PRN ×3 (00:29→23:49)
[2018-11-06 00:36] VITALS: BP 109/73
[2018-11-06] MEDS: OXYcodone IR 5MG TABLET PO PRN ×3 (02:06→21:28)
[2018-11-06] MEDS: ONDANSETRON ODT 4 MG PO PRN (02:28)
[2018-11-06] MEDS: LORazepam 0.5MG TABLET PO PRN (04:55)
[2018-11-06] MEDS: TEMPLATE NON-FORMULARY MED. (Albuterol Sulfate (Proair Hfa) 2 PUFFS) INH SCH ×4 (05:06→20:44)
[2018-11-06 05:09] LABS: ALANINE AMINOTRANSFERASE 69 U/L (12-78); ALBUMIN 2.1 g/dL (3.4-5.0); ANION GAP 6 mmol/L (5-15); CALCIUM 8.1 mg/dL (8.5-10.1); CHLORIDE 106 mmol/L (98-107); CREATININE 0.52 mg/dL (0.55-1.02)
[2018-11-06 05:11] LABS: ALKALINE PHOSPHATASE 157 U/L (45-117); BILIRUBIN,TOTAL 3.8 mg/dL (0.2-1.0); TOTAL PROTEIN 6.2 g/dL (6.4-8.2)
[2018-11-06 05:12] LABS: MEAN CORPUSCULAR HEMOGLOBIN 23.9 pg (27.0-34.8); MEAN CORPUSCULAR HGB CONC 31.6 g/dL (32.4-35.8); MEAN CORPUSCULAR VOLUME 75.4 fL (80-100); MEAN PLATELET VOLUME 9.2 fL (7.4-10.4); PLATELET COUNT 64 x10^3/uL (130-400); RED BLOOD COUNT 3.26 x10^6/uL (3.82-5.3); RED CELL DISTRIBUTION WIDTH 27.6 % (9.6-15.2)
[2018-11-06 05:56] LABS: BASOPHILS # (AUTO) 0.02 x10^3/uL (0-0.1); BASOPHILS % (AUTO) 1 % (0-1); EOSINOPHILS # (AUTO) 0.06 x10^3/uL (0-0.4); EOSINOPHILS % (AUTO) 2 % (1-7); LYMPHOCYTES % (AUTO) 10 % (22-44); MD SCAN; MONOCYTES # (AUTO) 0.44 x10^3/uL (0.2-0.8); MONOCYTES % (AUTO) 11 % (2-9); NEUTROPHILS # (AUTO) 2.94 x10^3/uL (1.8-6.8); NEUTROPHILS % (AUTO) 76 % (42-75)
[2018-11-06] MEDS: morphine SULFATE 10 MG/ML, 1ML IVPush PRN ×2 (07:51→20:43)
[2018-11-06] MEDS: MAALOX/HYOSCYAMINE/LIDOCAINE 45 ML BTL PO PRN ×2 (08:14→21:28)
[2018-11-06 08:40] VITALS: BP 108/69
[2018-11-06] MEDS: ALBUMIN HUMAN 25% 50 ML IV SCH ×2 (09:15→17:01)
[2018-11-06] MEDS ORDERED: LACTULOSE 20 GM/30 ML UDC ONE (09:17)
[2018-11-06] MEDS: LACTULOSE 20 GM/30 ML UDC PO SCH (09:19)
[2018-11-06] MEDS: GUAIFENESIN 200 MG TABLET PO SCH ×2 (09:19→20:44)
[2018-11-06] MEDS: THIAMINE 100MG TABLET PO SCH ×2 (09:19→20:44)
[2018-11-06] MEDS: POTASSIUM CHLORIDE 20 MEQ TAB.ER.PRT PO SCH ×2 (09:20→17:02)
[2018-11-06] MEDS: FOLIC ACID 1 MG TABLET PO SCH (09:20)
[2018-11-06] MEDS: GABAPENTIN 300 MG CAPSULE PO SCH ×3 (09:20→20:44)
[2018-11-06] MEDS: SPIRONOLACTONE 100 MG TABLET PO SCH (09:20)
[2018-11-06] MEDS: LACTOBACILLUS CHEW TABLET PO SCH ×3 (09:21→20:44)
[2018-11-06] MEDS: MULTIVITAMIN 1 TABLET PO SCH (09:21)
[2018-11-06] MEDS: FUROSEMIDE 20 MG TABLET PO SCH ×2 (09:21→17:01)
[2018-11-06] MEDS ORDERED: LACTULOSE 20 GM/30 ML UDC PO PRN (09:30)
[2018-11-06] MEDS: NICOTINE 7 MG/24 HR PATCH.TD24 TD SCH (13:13)
[2018-11-06] MEDS: ONDANSETRON 2MG/ML, 2ML IVPush PRN (20:43)
[2018-11-06 20:49] VITALS: BP 110/72
[2018-11-06] MEDS: TRAZODONE 100MG TABLET PO PRN (23:48)
[2018-11-07 00:51] VITALS: BP 104/68
[2018-11-07] MEDS: ALBUMIN HUMAN 25% 50 ML IV SCH ×2 (00:54→09:24)
[2018-11-07 04:45] LABS: MEAN CORPUSCULAR HEMOGLOBIN 23.5 pg (27.0-34.8); MEAN CORPUSCULAR HGB CONC 30.7 g/dL (32.4-35.8); MEAN CORPUSCULAR VOLUME 76.8 fL (80-100); MEAN PLATELET VOLUME 10.6 fL (7.4-10.4); PLATELET COUNT 65 x10^3/uL (130-400); RED BLOOD COUNT 3.22 x10^6/uL (3.82-5.3); RED CELL DISTRIBUTION WIDTH 29.1 % (9.6-15.2)
[2018-11-07 04:46] LABS: ALBUMIN 2.6 g/dL (3.4-5.0); ANION GAP 6 mmol/L (5-15); CALCIUM 7.8 mg/dL (8.5-10.1); CHLORIDE 105 mmol/L (98-107)
[2018-11-07 04:51] LABS: ALANINE AMINOTRANSFERASE 61 U/L (12-78); ALKALINE PHOSPHATASE 135 U/L (45-117); BILIRUBIN,TOTAL 4.4 mg/dL (0.2-1.0); CREATININE 0.58 mg/dL (0.55-1.02); TOTAL PROTEIN 6.6 g/dL (6.4-8.2)
[2018-11-07 05:09] LABS: BASOPHILS # (AUTO) 0.01 x10^3/uL (0-0.1); BASOPHILS % (AUTO) 0 % (0-1); EOSINOPHILS # (AUTO) 0.08 x10^3/uL (0-0.4); EOSINOPHILS % (AUTO) 2 % (1-7); LYMPHOCYTES # (AUTO) 0.43 x10^3/uL (1-3.4); LYMPHOCYTES % (AUTO) 10 % (22-44); MD MORPH REVIEW ONLY; MONOCYTES # (AUTO) 0.46 x10^3/uL (0.2-0.8); MONOCYTES % (AUTO) 11 % (2-9); NEUTROPHILS # (AUTO) 3.27 x10^3/uL (1.8-6.8); NEUTROPHILS % (AUTO) 77 % (42-75)
[2018-11-07 05:10] LABS: ANISOCYTOSIS 2+
[2018-11-07 05:11] LABS: HYPOCHROMIA 1+; MICROCYTOSIS 1+; OVALOCYTES 1+; POLYCHROMASIA 1+
[2018-11-07 05:15] LABS: ECHINOCYTES 1+; TARGET CELLS 1+; TEAR DROPS 1+
[2018-11-07 05:17] LABS: <PLATELET ESTIMATE> DECREASED; <PLT MORPHOLOGY> NORMAL PLT MORPH
[2018-11-07] MEDS: TEMPLATE NON-FORMULARY MED. (Albuterol Sulfate (Proair Hfa) 2 PUFFS) INH SCH ×4 (05:24→20:57)
[2018-11-07] MEDS: OXYcodone IR 5MG TABLET PO PRN ×2 (05:24→15:51)
[2018-11-07 09:00] VITALS: BP 101/67
[2018-11-07] MEDS: THIAMINE 100MG TABLET PO SCH ×2 (09:25→21:07)
[2018-11-07] MEDS: LACTOBACILLUS CHEW TABLET PO SCH ×3 (09:25→21:08)
[2018-11-07] MEDS: SPIRONOLACTONE 100 MG TABLET PO SCH (09:25)
[2018-11-07] MEDS: LACTULOSE 20 GM/30 ML UDC PO SCH ×3 (09:25→21:07)
[2018-11-07] MEDS: GUAIFENESIN 200 MG TABLET PO SCH ×2 (09:25→21:16)
[2018-11-07] MEDS: FOLIC ACID 1 MG TABLET PO SCH (09:25)
[2018-11-07] MEDS: MULTIVITAMIN 1 TABLET PO SCH (09:25)
[2018-11-07] MEDS: GABAPENTIN 300 MG CAPSULE PO SCH ×3 (09:25→21:16)
[2018-11-07] MEDS: FUROSEMIDE 20 MG TABLET PO SCH (09:25)
[2018-11-07] MEDS: POTASSIUM CHLORIDE 20 MEQ TAB.ER.PRT PO SCH ×2 (09:25→16:48)
[2018-11-07 09:26] LABS: FOLATE LEVEL 18.4 ng/mL (3.1-17.5)
[2018-11-07] MEDS: NICOTINE 7 MG/24 HR PATCH.TD24 TD SCH (09:35)
[2018-11-07] MEDS ORDERED: LACTULOSE 20 GM/30 ML UDC PO PRN (11:30)
[2018-11-07] MEDS: MORPHINE SULFATE 4 MG/ML, 1ML IVPush PRN (12:43)
[2018-11-07 14:14] VITALS: BP 105/68
[2018-11-07 20:16] VITALS: BP 122/76
[2018-11-07] MEDS: MAALOX/HYOSCYAMINE/LIDOCAINE 45 ML BTL PO PRN (21:08)
[2018-11-08] MEDS: MORPHINE SULFATE 4 MG/ML, 1ML IVPush PRN ×2 (00:09→12:29)
[2018-11-08] MEDS: OXYcodone IR 5MG TABLET PO PRN ×4 (00:41→23:42)
[2018-11-08 01:35] VITALS: BP 108/70
[2018-11-08] MEDS: TEMPLATE NON-FORMULARY MED. (Albuterol Sulfate (Proair Hfa) 2 PUFFS) INH SCH ×4 (04:50→20:16)
[2018-11-08 05:15] LABS: ALBUMIN 2.5 g/dL (3.4-5.0); ANION GAP 6 mmol/L (5-15); CALCIUM 8.3 mg/dL (8.5-10.1); CHLORIDE 108 mmol/L (98-107)
[2018-11-08 05:17] LABS: MEAN CORPUSCULAR HEMOGLOBIN 24.7 pg (27.0-34.8); MEAN CORPUSCULAR HGB CONC 32.5 g/dL (32.4-35.8); MEAN CORPUSCULAR VOLUME 76.2 fL (80-100); RED BLOOD COUNT 3.22 x10^6/uL (3.82-5.3); RED CELL DISTRIBUTION WIDTH 29.3 % (9.6-15.2)
[2018-11-08 05:20] LABS: % IRON SATURATION 8 % (20-55); ALANINE AMINOTRANSFERASE 57 U/L (12-78); ALKALINE PHOSPHATASE 141 U/L (45-117); BILIRUBIN,TOTAL 3.3 mg/dL (0.2-1.0); CREATININE 0.59 mg/dL (0.55-1.02); IRON LEVEL 14 mcg/dL (50-170); TOTAL IRON BINDING CAPACITY 180 mcg/dL (250-450); TOTAL PROTEIN 6.4 g/dL (6.4-8.2)
[2018-11-08 05:56] LABS: MD YES
[2018-11-08 05:58] LABS: MEAN PLATELET VOLUME 10.1 fL (7.4-10.4); PLATELET COUNT 66 x10^3/uL (130-400)
[2018-11-08 05:59] LABS: ANISOCYTOSIS 2+; BAND#(MANUAL) 0.03 x10^3/uL; BANDS%(MANUAL) 1 % (0-7); EOS#(MANUAL) 0.03 x10^3/uL (0.0-0.4); EOS% (MANUAL) 1 % (1-7); HYPOCHROMIA 1+; LYMPH#(MANUAL) 0.69 x10^3/uL (1-3.4); LYMPHS% (MANUAL) 21 % (22-44); MICROCYTOSIS 1+; MONOS#(MANUAL) 0.53 x10^3/uL (0.3-2.7); MONOS% (MANUAL) 16 % (2-9); OVALOCYTES 1+; POLYCHROMASIA 1+; SEG#(MANUAL) 2.01 x10^3/uL (1.8-6.8); SEGS% (MANUAL) 61 % (42-75)
[2018-11-08 06:00] LABS: <PLATELET ESTIMATE> DECREASED; <PLT MORPHOLOGY> NORMAL PLT MORPH; TARGET CELLS 1+; TEAR DROPS 1+
[2018-11-08 07:20] VITALS: BP 100/66
[2018-11-08] MEDS ORDERED: FUROSEMIDE 20 MG TABLET PO SCH (09:00)
[2018-11-08] MEDS ORDERED: SPIRONOLACTONE 100 MG TABLET PO SCH (09:00)
[2018-11-08] MEDS: LACTULOSE 20 GM/30 ML UDC PO SCH ×4 (09:00→21:00)
[2018-11-08] MEDS: FOLIC ACID 1 MG TABLET PO SCH (09:10)
[2018-11-08] MEDS: LACTOBACILLUS CHEW TABLET PO SCH ×3 (09:10→21:00)
[2018-11-08] MEDS: GABAPENTIN 300 MG CAPSULE PO SCH ×3 (09:10→21:01)
[2018-11-08] MEDS: THIAMINE 100MG TABLET PO SCH ×2 (09:10→21:00)
[2018-11-08] MEDS: GUAIFENESIN 200 MG TABLET PO SCH ×2 (09:11→21:01)
[2018-11-08] MEDS: POTASSIUM CHLORIDE 20 MEQ TAB.ER.PRT PO SCH ×2 (09:11→15:43)
[2018-11-08] MEDS: NICOTINE 7 MG/24 HR PATCH.TD24 TD SCH (09:12)
[2018-11-08] MEDS: MULTIVITAMIN 1 TABLET PO SCH (09:12)
[2018-11-08] MEDS: HEPARIN 5,000 UNITS/ML, 1ML SQ SCH ×2 (12:29→20:29)
[2018-11-08 13:32] LABS: OCCULT BLOOD NEGATIVE (NEGATIVE)
[2018-11-08 14:00] VITALS: BP 93/57
[2018-11-08 19:10] VITALS: BP 107/67
[2018-11-08] MEDS: MAALOX/HYOSCYAMINE/LIDOCAINE 45 ML BTL PO PRN (20:29)
[2018-11-08] MEDS: LORazepam 0.5MG TABLET PO PRN (20:36)
[2018-11-09 01:30] VITALS: BP 116/81
[2018-11-09] MEDS: HEPARIN 5,000 UNITS/ML, 1ML SQ SCH ×2 (04:00→11:23)
[2018-11-09 04:56] LABS: MEAN CORPUSCULAR HEMOGLOBIN 23.7 pg (27.0-34.8); MEAN CORPUSCULAR VOLUME 76.6 fL (80-100); MEAN PLATELET VOLUME 11.5 fL (7.4-10.4); PLATELET COUNT 89 x10^3/uL (130-400); RED BLOOD COUNT 3.52 x10^6/uL (3.82-5.3); RED CELL DISTRIBUTION WIDTH 29.4 % (9.6-15.2)
[2018-11-09 05:04] LABS: ALBUMIN 2.5 g/dL (3.4-5.0); ANION GAP 5 mmol/L (5-15); CHLORIDE 106 mmol/L (98-107)
[2018-11-09] MEDS: TEMPLATE NON-FORMULARY MED. (Albuterol Sulfate (Proair Hfa) 2 PUFFS) INH SCH ×4 (05:06→21:00)
[2018-11-09 05:08] LABS: ALANINE AMINOTRANSFERASE 60 U/L (12-78); ALKALINE PHOSPHATASE 137 U/L (45-117); BILIRUBIN,TOTAL 3.7 mg/dL (0.2-1.0); CREATININE 0.54 mg/dL (0.55-1.02); TOTAL PROTEIN 6.9 g/dL (6.4-8.2)
[2018-11-09] MEDS: MORPHINE SULFATE 4 MG/ML, 1ML IVPush PRN ×2 (05:24→17:43)
[2018-11-09 05:46] LABS: BASOPHILS # (AUTO) 0.01 x10^3/uL (0-0.1); BASOPHILS % (AUTO) 0 % (0-1); EOSINOPHILS # (AUTO) 0.08 x10^3/uL (0-0.4); EOSINOPHILS % (AUTO) 2 % (1-7); LYMPHOCYTES # (AUTO) 0.89 x10^3/uL (1-3.4); LYMPHOCYTES % (AUTO) 21 % (22-44); MD MORPH REVIEW ONLY; MONOCYTES # (AUTO) 0.71 x10^3/uL (0.2-0.8); MONOCYTES % (AUTO) 17 % (2-9); NEUTROPHILS # (AUTO) 2.51 x10^3/uL (1.8-6.8); NEUTROPHILS % (AUTO) 60 % (42-75)
[2018-11-09 05:47] LABS: <PLATELET ESTIMATE> DECREASED; ANISOCYTOSIS 2+; HYPOCHROMIA 1+; LARGE PLATELETS 1+; MICROCYTOSIS 1+; OVALOCYTES 1+; POLYCHROMASIA 1+; TARGET CELLS 1+
[2018-11-09 05:48] LABS: TEAR DROPS 1+
[2018-11-09] MEDS: FOLIC ACID 1 MG TABLET PO SCH (07:57)
[2018-11-09] MEDS: LACTOBACILLUS CHEW TABLET PO SCH ×3 (07:57→19:42)
[2018-11-09] MEDS: GABAPENTIN 300 MG CAPSULE PO SCH ×3 (07:57→19:42)
[2018-11-09] MEDS: GUAIFENESIN 200 MG TABLET PO SCH ×2 (07:57→19:42)
[2018-11-09] MEDS: MULTIVITAMIN 1 TABLET PO SCH (07:57)
[2018-11-09] MEDS: THIAMINE 100MG TABLET PO SCH ×2 (07:57→19:42)
[2018-11-09] MEDS: POTASSIUM CHLORIDE 20 MEQ TAB.ER.PRT PO SCH ×2 (07:57→15:16)
[2018-11-09] MEDS: SPIRONOLACTONE 100 MG TABLET PO SCH (07:57)
[2018-11-09] MEDS: LACTULOSE 20 GM/30 ML UDC PO SCH ×4 (07:58→19:43)
[2018-11-09] MEDS: FUROSEMIDE 80 MG TABLET PO SCH (07:58)
[2018-11-09] MEDS: OXYcodone IR 5MG TABLET PO PRN ×3 (07:58→23:48)
[2018-11-09 08:58] VITALS: BP 96/59
[2018-11-09] MEDS ORDERED: LIDOCAINE-MPF 1%, 5ML ONE (09:08)
[2018-11-09] MEDS ORDERED: MORPHINE SULFATE 4 MG/ML, 1ML IVPush ONE (10:30)
[2018-11-09] MEDS: NICOTINE 7 MG/24 HR PATCH.TD24 TD SCH (11:23)
[2018-11-09] MEDS: ONDANSETRON 2MG/ML, 2ML IVPush PRN (11:23)
[2018-11-09] MEDS: MAALOX/HYOSCYAMINE/LIDOCAINE 45 ML BTL PO PRN (13:33)
[2018-11-09 14:31] VITALS: BP 94/57
[2018-11-09] MEDS: ALBUMIN HUMAN 25% 50 ML IV SCH ×2 (15:04→23:03)
[2018-11-09] MEDS: PANTOPRAZOLE 40 MG IV IVPush SCH (15:04)
[2018-11-09] MEDS: LORazepam 0.5MG TABLET PO PRN (15:16)
[2018-11-09] MEDS: METOCLOPRAMIDE 10MG TABLET PO SCH ×2 (15:16→19:43)
[2018-11-09 19:05] VITALS: BP 104/65
[2018-11-09] MEDS ORDERED: CEFTRIAXONE PMX 2GM/50ML 50 ML IV SCH (20:30)
[2018-11-09 23:05] LABS: MEAN CORPUSCULAR HEMOGLOBIN 24.5 pg (27.0-34.8); MEAN CORPUSCULAR HGB CONC 32.3 g/dL (32.4-35.8); MEAN CORPUSCULAR VOLUME 75.7 fL (80-100); MEAN PLATELET VOLUME 10.1 fL (7.4-10.4); PLATELET COUNT 97 x10^3/uL (130-400); RED BLOOD COUNT 3.32 x10^6/uL (3.82-5.3); RED CELL DISTRIBUTION WIDTH 30.1 % (9.6-15.2)
[2018-11-09 23:06] LABS: MD YES
[2018-11-09 23:11] LABS: BAND#(MANUAL) 0.03 x10^3/uL; BANDS%(MANUAL) 1 % (0-7); EOS#(MANUAL) 0.03 x10^3/uL (0.0-0.4); EOS% (MANUAL) 1 % (1-7); LYMPH#(MANUAL) 0.92 x10^3/uL (1-3.4); LYMPHS% (MANUAL) 27 % (22-44); MONOS#(MANUAL) 0.37 x10^3/uL (0.3-2.7); MONOS% (MANUAL) 11 % (2-9); SEG#(MANUAL) 2.04 x10^3/uL (1.8-6.8); SEGS% (MANUAL) 60 % (42-75)
[2018-11-09 23:12] LABS: ANISOCYTOSIS 2+; HYPOCHROMIA 1+; MICROCYTOSIS 1+; OVALOCYTES 1+
[2018-11-09 23:13] LABS: <PLATELET ESTIMATE> DECREASED; LARGE PLATELETS 1+; TARGET CELLS 1+; TEAR DROPS 1+
[2018-11-10 01:48] VITALS: BP 103/63
[2018-11-10] MEDS: PANTOPRAZOLE 40 MG IV IVPush SCH ×2 (01:50→14:30)
[2018-11-10 04:13] LABS: INTERNATIONAL NORMALIZED RATIO 1.49 (0.93-1.1); PROTHROMBIN TIME 15.6 Seconds (9.6-11.5)
[2018-11-10 04:15] LABS: MEAN CORPUSCULAR HEMOGLOBIN 24.4 pg (27.0-34.8); MEAN CORPUSCULAR VOLUME 76.3 fL (80-100); RED CELL DISTRIBUTION WIDTH 29.3 % (9.6-15.2)
[2018-11-10 04:17] LABS: ALBUMIN 2.8 g/dL (3.4-5.0); ANION GAP 6 mmol/L (5-15); CHLORIDE 106 mmol/L (98-107)
[2018-11-10 04:21] LABS: ALANINE AMINOTRANSFERASE 56 U/L (12-78); ALKALINE PHOSPHATASE 127 U/L (45-117); BILIRUBIN,TOTAL 3.1 mg/dL (0.2-1.0); CREATININE 0.56 mg/dL (0.55-1.02); TOTAL PROTEIN 7.1 g/dL (6.4-8.2)
[2018-11-10 04:59] LABS: MD YES; MEAN PLATELET VOLUME 10.3 fL (7.4-10.4); PLATELET COUNT 114 x10^3/uL (130-400)
[2018-11-10 05:07] LABS: BAND#(MANUAL) 0.04 x10^3/uL; BANDS%(MANUAL) 1 % (0-7); BASOS#(MANUAL) 0.04 x10^3/uL (0-0.1); BASOS% (MANUAL) 1 % (0-1); EOS#(MANUAL) 0.12 x10^3/uL (0.0-0.4); EOS% (MANUAL) 3 % (1-7); LYMPH#(MANUAL) 0.96 x10^3/uL (1-3.4); LYMPHS% (MANUAL) 24 % (22-44); MONOS#(MANUAL) 0.64 x10^3/uL (0.3-2.7); MONOS% (MANUAL) 16 % (2-9); SEGS% (MANUAL) 55 % (42-75)
[2018-11-10 05:08] LABS: ANISOCYTOSIS 2+; CRENATED 1+; HYPOCHROMIA 1+; MICROCYTOSIS 1+; OVALOCYTES 1+; TARGET CELLS 1+; TEAR DROPS 1+
[2018-11-10 05:09] LABS: <PLATELET ESTIMATE> DECREASED; LARGE PLATELETS 1+
[2018-11-10] MEDS: TEMPLATE NON-FORMULARY MED. (Albuterol Sulfate (Proair Hfa) 2 PUFFS) INH SCH ×2 (05:20→11:00)
[2018-11-10] MEDS: MORPHINE SULFATE 4 MG/ML, 1ML IVPush PRN (05:56)
[2018-11-10] MEDS: ALBUMIN HUMAN 25% 50 ML IV SCH (06:33)
[2018-11-10] MEDS: METOCLOPRAMIDE 10MG TABLET PO SCH ×2 (06:33→11:00)
[2018-11-10 07:20] VITALS: BP 100/67
[2018-11-10] MEDS: POTASSIUM CHLORIDE 20 MEQ TAB.ER.PRT PO SCH (08:00)
[2018-11-10] MEDS: GABAPENTIN 300 MG CAPSULE PO SCH (09:00)
[2018-11-10] MEDS: SPIRONOLACTONE 100 MG TABLET PO SCH (09:00)
[2018-11-10] MEDS: FUROSEMIDE 80 MG TABLET PO SCH (09:00)
[2018-11-10] MEDS: GUAIFENESIN 200 MG TABLET PO SCH (09:00)
[2018-11-10] MEDS: LACTULOSE 20 GM/30 ML UDC PO SCH ×2 (09:00)
[2018-11-10] MEDS: MULTIVITAMIN 1 TABLET PO SCH (09:00)
[2018-11-10] MEDS: THIAMINE 100MG TABLET PO SCH (09:00)
[2018-11-10] MEDS: FOLIC ACID 1 MG TABLET PO SCH (09:00)
[2018-11-10] MEDS: LACTOBACILLUS CHEW TABLET PO SCH (09:00)
[2018-11-10] MEDS ORDERED: PROPOFOL 10 MG/ML, 20ML ONE (11:31)
[2018-11-10] MEDS ORDERED: PROPOFOL 10 MG/ML, 50ML ONE (11:31)
[2018-11-10] MEDS ORDERED: DIPHENHYDRAMINE 50 MG/ML, 1ML IVPush PRN (12:00)
[2018-11-10] MEDS ORDERED: ONDANSETRON ODT 8 MG PO PRN (12:00)
[2018-11-10] MEDS ORDERED: ONDANSETRON 2MG/ML, 2ML IV PRN (12:00)
[2018-11-10] MEDS ORDERED: MIDAZOLAM 1 MG/ML, 2ML IV PRN (12:00)
[2018-11-10] MEDS ORDERED: FENTANYL PF 100 MCG/2ML IV PRN (12:00)
[2018-11-10] MEDS ORDERED: MEPERIDINE/PF 25MG/0.5ML IVPush PRN (12:00)
[2018-11-10] MEDS ORDERED: MORPHINE SULFATE 4 MG/ML, 1ML IVPush PRN (12:00)
[2018-11-10] MEDS: OXYcodone IR 5MG TABLET PO PRN (13:03)
[2018-11-10 13:48] VITALS: BP 104/67
[2018-11-10] MEDS: NICOTINE 7 MG/24 HR PATCH.TD24 TD SCH (14:30)
[2018-11-10] MEDS ORDERED: FERR324T5 PO (15:07)
[2018-11-10] MEDS ORDERED: SPIR100T PO (15:07)
[2018-11-10] MEDS ORDERED: LACT20SO13 PO (15:07)
[2018-11-10] MEDS ORDERED: MULT1TAB60 PO (15:07)
[2018-11-10] MEDS ORDERED: PANT40TA3 PO (15:07)
[2018-11-10] MEDS ORDERED: THIA100T67 PO (15:07)
[2018-11-10] MEDS ORDERED: FURO80TA3 PO (15:07)
[2018-11-10] MEDS ORDERED: POTA20TA6 PO (17:16)
== END 2018-11-10 16:30 | disposition home or self-care (01) | DRG 432 ==
LOC: ED 09:59 → EDIP 11:01 → 3NW 11:37 → DCLOUNGE 11-10 16:20
PROVIDERS: ADMIT Internal Medicine; ATTEND Internal Medicine
PROC: 0W9G3ZZ Drainage of Peritoneal Cavity, Percutaneous Approach (ICD-10-PCS; 2018-11-05)
PROC: 0W9G3ZZ Drainage of Peritoneal Cavity, Percutaneous Approach (ICD-10-PCS; 2018-11-09)
PROC: 0DJ08ZZ Inspection of Upper Intestinal Tract, Via Natural or Artificial Opening Endoscopic (ICD-10-PCS; principal; 2018-11-10 11:30)
DX: K70.31 Alcoholic cirrhosis of liver with ascites (principal); K85.20 Alcohol induced acute pancreatitis without necrosis or infection; F10.239 Alcohol dependence with withdrawal, unspecified; G93.40 Encephalopathy, unspecified; I85.10 Secondary esophageal varices without bleeding; K76.6 Portal hypertension; K92.0 Hematemesis; D50.9 Iron deficiency anemia, unspecified; D69.6 Thrombocytopenia, unspecified; F10.229 Alcohol dependence with intoxication, unspecified; F12.90 Cannabis use, unspecified, uncomplicated; F17.210 Nicotine dependence, cigarettes, uncomplicated; G47.00 Insomnia, unspecified; G62.1 Alcoholic polyneuropathy; G89.29 Other chronic pain; I73.9 Peripheral vascular disease, unspecified; K59.00 Constipation, unspecified; K70.11 Alcoholic hepatitis with ascites; K76.0 Fatty (change of) liver, not elsewhere classified; N83.202 Unspecified ovarian cyst, left side; Y90.8 Blood alcohol level of 240 mg/100 ml or more; Z79.899 Other long term (current) drug therapy; Z88.8 Allergy status to other drugs, medicaments and biological substances
CPT/HCPCS: 36415; 82042; 82150; 82945; 83986; J7042; 49083; 70450; 74177; 76700; 80048; 80053; 80061; 80307; 82272; 82607; 82728; 82746; 83540; 83550; 83615; 83690; 83735; 84157; 84443; 84702; 85018; 85025; 85610; 86022; 87070; 87205; 89051; G0378; J0696; J1644; J2405; J2704; J3480; P9047; Q0162; Q9967; C9113; J2060; J2270; J7030; J7040

== ENCOUNTER 2019-12-02 17:44 | Emergency (ER) | payer MEDICAID ==
[~2019-12-02] VITALS: Ht 165.1 cm; Wt 56.8 kg
[~2019-12-02 17:44] MED LIST changes: -ACET-1757 PO; +ACET-2065 PO; +CYAN-27 PO; -CYAN10005 PO; +FERR324T5 PO; +FURO80TA3 PO; +POTA20TA6 PO; -TRAZ-137 PO; +TRAZ-175 PO; -ZINC220C5 PO; +ZINC220C7 PO
[2019-12-02] MEDS ORDERED: ONDANSETRON 2MG/ML, 2ML IVPush ONE (18:00)
[2019-12-02] MEDS ORDERED: FAMOTIDINE 20 MG/2 ML IV ONE (18:00)
[2019-12-02] MEDS ORDERED: SODIUM CHLORIDE FLUSH 10ML SYR IVF ONE (18:00)
--- NOTE | 2019-12-02 18:00 | NUR ---
Late entry: pt BIB [facility], changed into gown, resting on gurney, call light within reach, given warm blankets for comfort, denies additional needs, NAD. MD Espinoza performed assessment and discussed plan of care. WCTM.
--- NOTE | 2019-12-02 18:31 | NUR ---
pt resting in gurney, eyes closed, even and unlabored respirations, call light within reach, NAD, WCTM.
--- NOTE | 2019-12-02 18:32 | NUR ---
urine collected and sent to lab.
[2019-12-02 18:36] LABS: BASOPHILS # (AUTO) 0.05 x10^3/uL (0-0.1); BASOPHILS % (AUTO) 1 % (0-1); EOSINOPHILS # (AUTO) 0.03 x10^3/uL (0-0.4); EOSINOPHILS % (AUTO) 1 % (1-7); LYMPHOCYTES # (AUTO) 0.66 x10^3/uL (1-3.4); LYMPHOCYTES % (AUTO) 17 % (22-44); MD NO; MEAN CORPUSCULAR HEMOGLOBIN 27.4 pg (27.0-34.8); MEAN CORPUSCULAR HGB CONC 32.7 g/dL (32.4-35.8); MEAN CORPUSCULAR VOLUME 83.8 fL (80-100); MONOCYTES % (AUTO) 8 % (2-9); NEUTROPHILS # (AUTO) 2.75 x10^3/uL (1.8-6.8); NEUTROPHILS % (AUTO) 73 % (42-75); PLATELET COUNT 171 x10^3/uL (130-400); RED BLOOD COUNT 3.73 x10^6/uL (3.82-5.3); RED CELL DISTRIBUTION WIDTH 19.3 % (9.6-15.2)
[2019-12-02 18:37] LABS: INTERNATIONAL NORMALIZED RATIO 1.34 (0.93-1.1); PROTHROMBIN TIME 14.2 Seconds (9.6-11.5)
[2019-12-02 18:40] LABS: ALANINE AMINOTRANSFERASE 86 U/L (12-78); ALBUMIN 3.4 g/dL (3.4-5.0); ANION GAP 11 mmol/L (5-15); CALCIUM 8.1 mg/dL (8.5-10.1); CHLORIDE 103 mmol/L (98-107)
[2019-12-02] MEDS ORDERED: FAMOTIDINE 20 MG/2 ML ONE (18:41)
[2019-12-02] MEDS ORDERED: ONDANSETRON 2MG/ML, 2ML ONE (18:41)
[2019-12-02 18:44] LABS: ALKALINE PHOSPHATASE 126 U/L (45-117); TOTAL PROTEIN 8.1 g/dL (6.4-8.2)
--- NOTE | 2019-12-02 18:53 | NUR ---
bedside report given to Kavin RALPH, pt care transferred at this time.
[2019-12-02 18:55] LABS: MICROSCOPIC INDICATED
[2019-12-02 19:27] LABS: CULTURE INDICATED? NO
[2019-12-02] MEDS ORDERED: LORazepam 2 MG/ML, 1ML ONE (20:45)
[2019-12-02] MEDS ORDERED: POTASSIUM CHLORIDE 20 MEQ, MAGNESIUM SULFATE 1 GM, FOLIC ACID 1 MG, THIAMINE 200 MG, MV... IV SCH (21:00)
[2019-12-02] MEDS ORDERED: LORazepam 2 MG/ML, 1ML IVPush ONE (21:00)
--- NOTE | 2019-12-02 22:36 | NUR ---
Pt now sleeping. Rally bag infusing.
--- NOTE | 2019-12-03 01:28 | NUR ---
break rn: pt resting with eyes closed, nadn, respirations even and unlabored, monitors in place, iv fluids infusing, call light within reach. will cont to monitor
[2019-12-03] MEDS ORDERED: DEXTROSE 50%, 50ML SYRINGE IVPush ONE (02:30)
--- NOTE | 2019-12-03 05:41 | NUR ---
Pt was made read for discharge after being able to transfer to a commode and ambulate in the room unassisted. Pt was also able to tolerate PO juice. Once notified she will be discharged, pt requested to speak to a MD. Pt stated to MD that she wanted "help" including food, drink, and "a place to stay". Pt informed that she is medically cleared for discharge.
[2019-12-03 05:43] VITALS: BP 143/98
== END 2019-12-03 05:46 | disposition home or self-care (01) ==
LOC: ED 20:54
DX: F10.229 Alcohol dependence with intoxication, unspecified (principal); R11.2 Nausea with vomiting, unspecified; I10 Essential (primary) hypertension
CPT/HCPCS: 36415; 71045; 80053; 80307; 81001; 82140; 82962; 83690; 84703; 85025; 85610; 93005; 96361; 96374; 96375; 99285; J2060; J2405; J3411; J3475; J3480; J3490; J7042

== ENCOUNTER 2019-12-13 08:10 | Emergency (ER) | payer MEDICAID ==
[~2019-12-13] VITALS: Ht 165.1 cm; Wt 59.1 kg
[2019-12-13 08:16] VITALS: BP 106/61
[2019-12-13 08:54] LABS: PH, VENOUS 7.446 pH (7.320-7.420)
[2019-12-13] MEDS ORDERED: SODIUM CHLORIDE 0.9% 1,000ML IVBOLUS ONE (09:00)
[2019-12-13 09:08] LABS: ALANINE AMINOTRANSFERASE 42 U/L (12-78); ALBUMIN 2.7 g/dL (3.4-5.0); ANION GAP 10 mmol/L (5-15); CALCIUM 7.5 mg/dL (8.5-10.1); CHLORIDE 108 mmol/L (98-107); CREATININE 0.66 mg/dL (0.55-1.02)
[2019-12-13 09:12] LABS: ALKALINE PHOSPHATASE 185 U/L (45-117); BILIRUBIN,TOTAL 1.9 mg/dL (0.2-1.0); TOTAL PROTEIN 6.7 g/dL (6.4-8.2)
[2019-12-13 09:18] LABS: MD YES; MEAN CORPUSCULAR HEMOGLOBIN 26.6 pg (27.0-34.8); MEAN CORPUSCULAR HGB CONC 31.9 g/dL (32.4-35.8); MEAN CORPUSCULAR VOLUME 83.6 fL (80-100); MEAN PLATELET VOLUME 9.4 fL (7.4-10.4); PLATELET COUNT 76 x10^3/uL (130-400); RED BLOOD COUNT 2.96 x10^6/uL (3.82-5.3)
[2019-12-13 09:20] LABS: BAND#(MANUAL) 0.03 x10^3/uL; BANDS%(MANUAL) 1 % (0-7); EOS#(MANUAL) 0.16 x10^3/uL (0.0-0.4); EOS% (MANUAL) 5 % (1-7); LYMPH#(MANUAL) 0.74 x10^3/uL (1-3.4); LYMPHS% (MANUAL) 24 % (22-44); MONOS% (MANUAL) 16 % (2-9); SEG#(MANUAL) 1.67 x10^3/uL (1.8-6.8); SEGS% (MANUAL) 54 % (42-75)
[2019-12-13 09:21] LABS: <PLATELET ESTIMATE> DECREASED; <PLT MORPHOLOGY> NORMAL PLT MORPH; ANISOCYTOSIS 1+; HYPOCHROMIA 1+; OVALOCYTES 1+; POLYCHROMASIA 1+
--- NOTE | 2019-12-13 09:28 | NUR ---
PT REFUSING STRAIGHT CATH. RN ASSISTED PT TO BEDSIDE COMMODE, PT REQUESTING FOR RN TO TURN OFF LIGHTS WHILE SHE WENT TO COMMODE. RN EDUCATED PT WE NEED TO BE ABLE TO SEE, PT BEGAN YELLING AT RN AND BECOMING AGGRESSIVE. RN REQUESTED PT GET BACK TO BED, PT UPSET WE DO NOT HAVE TOILET PAPER, PT OFFERED WASH CLOTH AND TOWEL WITH SOAP AND WATER. PT BEGAN YELLING AT RN "YOU'RE A FUCKING BITCH, I'M OUT OF HERE, HOW DO YOU TREAT PEOPLE LIKE THIS, I'M SUING YOU", RN ASSISTED PT BACK TO BED WHEN PT BEGAN TO BE PHYSICALLY AGGRESSIVE, PT THREW TOWEL AT RN AND SWUNG TO HIT RN. PT GOT BACK TO BED AND MADE PHONE CALL TO MOTHER STATING "COME PICK ME UP NOW". AND PEARL HAND NOTIFIED.
[2019-12-13 09:45] LABS: MICROSCOPIC INDICATED
[2019-12-13 09:54] LABS: ACETONE, SERUM Negative (Negative)
[2019-12-13 10:21] LABS: CULTURE INDICATED? NO
--- NOTE | 2019-12-13 10:32 | NUR ---
PT REFUSING ALL MONITORS, PT TRYING TO HIT RN WHEN TRYING TO REPLACE MONITORS. AWARE.
--- NOTE | 2019-12-13 10:58 | NUR ---
PTS MOTHER AT BEDSIDE, AWAITNG RECHECK BY .
--- NOTE | 2019-12-13 11:30 | NUR ---
PT YELLING "TAKE THIS IV OUT, GET IT FUCKING OUT, GIVE ME ICE CHIPS AND ORANGE JUICE". IV REMOVED AND PT GIVEN ICE CHIPS. PTS MOTHER TO TAKE PT HOME, RIDE WILL BE HERE SHORTLY.
== END 2019-12-13 11:51 | disposition home or self-care (01) ==
LOC: ED 11:40
DX: F10.220 Alcohol dependence with intoxication, uncomplicated (principal); R11.2 Nausea with vomiting, unspecified; F17.200 Nicotine dependence, unspecified, uncomplicated; Z90.49 Acquired absence of other specified parts of digestive tract; Y90.0 Blood alcohol level of less than 20 mg/100 ml
CPT/HCPCS: 36415; 71045; 80053; 81001; 82010; 82803; 84703; 85025; 96360; 99284; J7030

== ENCOUNTER 2020-02-10 20:13 | Emergency (ER) | payer MEDICAID ==
[~2020-02-10] VITALS: Ht 165.1 cm; Wt 66.0 kg
--- NOTE | 2020-02-10 20:16 | NUR ---
THIS IS A 29Y F BIB EMS FROM HOME FOR ABD PAIN, HX OF ACITES AND GETS IT DRAINED 2X/WK, HAS NOT GONE IN 4DAYS. PT ABD ROUNDED AND VERY TENDER TO TOUCH. PT APPEARS ANNOYED TO BE HERE AND KEEPS BEANIE OVER FACE WHILE STAFF IS IN ROOM. PT CONNECTED TO MONITORING, VSS HTN NOTED (PT HAS HX OF HTN) PROVIDER AWARE.
[2020-02-10] MEDS ORDERED: ONDANSETRON ODT 4 MG ONE (20:22)
--- NOTE | 2020-02-10 20:24 | NUR ---
PT MEDICATED PER MAR, TECH AT BEDSIDE FOR EKG
[2020-02-10] MEDS ORDERED: ONDANSETRON ODT 4 MG PO ONE (20:30)
--- NOTE | 2020-02-10 20:47 | NUR ---
PT RESTING ON TC BLAIR AT THIS TIME
[2020-02-10 21:01] LABS: MEAN CORPUSCULAR HEMOGLOBIN 28.3 pg (27.0-34.8); MEAN CORPUSCULAR HGB CONC 32.7 g/dL (32.4-35.8); MEAN CORPUSCULAR VOLUME 86.6 fL (80-100); MEAN PLATELET VOLUME 9.1 fL (7.4-10.4); PLATELET COUNT 152 x10^3/uL (130-400); RED BLOOD COUNT 4.39 x10^6/uL (3.82-5.3); RED CELL DISTRIBUTION WIDTH 23.4 % (9.6-15.2)
[2020-02-10 21:05] LABS: ALANINE AMINOTRANSFERASE 99 U/L (12-78); ALBUMIN 2.8 g/dL (3.4-5.0); ANION GAP 9 mmol/L (5-15); CALCIUM 8.1 mg/dL (8.5-10.1); CHLORIDE 110 mmol/L (98-107); CREATININE 0.59 mg/dL (0.55-1.02)
[2020-02-10 21:10] LABS: ALKALINE PHOSPHATASE 149 U/L (45-117); BILIRUBIN,TOTAL 1.5 mg/dL (0.2-1.0); TOTAL PROTEIN 7.9 g/dL (6.4-8.2)
--- NOTE | 2020-02-10 21:24 | NUR ---
PT IN IR AT THIS TIME
[2020-02-10 21:54] LABS: BASOPHILS # (AUTO) 0.05 x10^3/uL (0-0.1); BASOPHILS % (AUTO) 1 % (0-1); EOSINOPHILS # (AUTO) 0.01 x10^3/uL (0-0.4); EOSINOPHILS % (AUTO) 0 % (1-7); LYMPHOCYTES # (AUTO) 1.16 x10^3/uL (1-3.4); LYMPHOCYTES % (AUTO) 32 % (22-44); MD SCAN; MONOCYTES # (AUTO) 0.29 x10^3/uL (0.2-0.8); MONOCYTES % (AUTO) 8 % (2-9); NEUTROPHILS # (AUTO) 2.14 x10^3/uL (1.8-6.8); NEUTROPHILS % (AUTO) 59 % (42-75)
[2020-02-10 21:56] VITALS: BP 131/86
--- NOTE | 2020-02-10 22:04 | NUR ---
AT BEDSIDE TO ASSESS PT AND DISCUSS POC/ DC. [place] PROVIDED WATER AND JUICE REQ
--- NOTE | 2020-02-10 22:08 | NUR ---
ATTEMPTED TO CALL PT PARENTS AT THIS TIME, NO ANSWER
== END 2020-02-10 22:35 | disposition home or self-care (01) ==
LOC: ED 22:01
DX: K70.31 Alcoholic cirrhosis of liver with ascites (principal); K70.11 Alcoholic hepatitis with ascites; F10.20 Alcohol dependence, uncomplicated; R00.0 Tachycardia, unspecified; Y90.9 Presence of alcohol in blood, level not specified; Z72.9 Problem related to lifestyle, unspecified
CPT/HCPCS: 36415; 49083; 80053; 83690; 84703; 85025; 93005; 99285; Q0162

== ENCOUNTER 2020-03-17 09:46 | Inpatient (IN) | payer MEDICAID ==
[~2020-03-17] VITALS: Ht 165.1 cm; Wt 72.7 kg
[~2020-03-17 09:46] MED LIST changes: +MULT-449 PO; -MULT1TAB60 PO
[2020-03-17] MEDS ORDERED: SODIUM CHLORIDE 0.9% 1,000 ML IV ONE (09:49)
--- NOTE | 2020-03-17 09:56 | NUR ---
ROYCE RUIZ AT BEDSIDE FOR EVALUATION
[2020-03-17] MEDS ORDERED: SODIUM CHLORIDE FLUSH 10ML SYR IVF ONE (10:00)
[2020-03-17 10:28] LABS: INTERNATIONAL NORMALIZED RATIO 1.35 (0.93-1.1)
[2020-03-17 10:32] LABS: ALANINE AMINOTRANSFERASE 65 U/L (12-78); ALBUMIN 2.9 g/dL (3.4-5.0); ANION GAP 22 mmol/L (5-15); CALCIUM 8.7 mg/dL (8.5-10.1); CHLORIDE 102 mmol/L (98-107); CREATININE 1.18 mg/dL (0.55-1.02)
[2020-03-17 10:36] LABS: ALKALINE PHOSPHATASE 184 U/L (45-117); TOTAL PROTEIN 6.9 g/dL (6.4-8.2)
--- NOTE | 2020-03-17 10:55 | NUR ---
Pt resting in bed, call light in reach.
[2020-03-17 10:58] LABS: MEAN CORPUSCULAR HEMOGLOBIN 31.3 pg (27.0-34.8); MEAN CORPUSCULAR VOLUME 94.8 fL (80-100); MEAN PLATELET VOLUME 9.8 fL (7.4-10.4); PLATELET COUNT 146 x10^3/uL (130-400); RED BLOOD COUNT 3.58 x10^6/uL (3.82-5.3); RED CELL DISTRIBUTION WIDTH 25.5 % (9.6-15.2)
[2020-03-17 10:59] LABS: MD YES
[2020-03-17 11:01] LABS: BAND#(MANUAL) 0.49 x10^3/uL; BANDS%(MANUAL) 6 % (0-7); BASOS#(MANUAL) 0.16 x10^3/uL (0-0.1); BASOS% (MANUAL) 2 % (0-1); EOS#(MANUAL) 0.08 x10^3/uL (0.0-0.4); EOS% (MANUAL) 1 % (1-7); LYMPH#(MANUAL) 0.41 x10^3/uL (1-3.4); LYMPHS% (MANUAL) 5 % (22-44); MONOS#(MANUAL) 0.65 x10^3/uL (0.3-2.7); MONOS% (MANUAL) 8 % (2-9); SEG#(MANUAL) 6.32 x10^3/uL (1.8-6.8); SEGS% (MANUAL) 78 % (42-75)
[2020-03-17 11:02] LABS: ANISOCYTOSIS 1+; OVALOCYTES 1+; TARGET CELLS 1+
[2020-03-17 11:03] LABS: <PLATELET ESTIMATE> ADEQUATE; <PLT MORPHOLOGY> NORMAL PLT MORPH; HYPOCHROMIA 1+; SCHISTOCYTES 1+
[2020-03-17 11:13] LABS: PROTHROMBIN TIME 14.3 Seconds (9.6-11.5)
--- NOTE | 2020-03-17 11:21 | NUR ---
Report called to Phoebe lawton
[2020-03-17 11:38] LABS: ACETONE, SERUM Negative (Negative)
[2020-03-17] MEDS ORDERED: ZIPRASIDONE 20 MG INJ IM ONE ×2 (12:30→23:00)
[2020-03-17] MEDS ORDERED: DOCUSATE 100 MG CAPSULE PO PRN (12:30)
[2020-03-17] MEDS ORDERED: hydrALAzine 20 MG/ML, 1ML IVPush PRN (12:30)
[2020-03-17] MEDS ORDERED: LORazepam 0.5MG TABLET PO PRN (12:30)
[2020-03-17] MEDS ORDERED: LACTULOSE 10 GM/15 ML UDC PO SCH (12:30)
[2020-03-17] MEDS ORDERED: LABETALOL 5MG/ML, 20ML IVPush PRN (12:30)
[2020-03-17] MEDS ORDERED: POLYETHYLENE GLYCOL 17 GM PACKET PO PRN (12:30)
[2020-03-17] MEDS: RIFAXIMIN 550 MG TABLET PO SCH ×2 (12:30→21:00)
[2020-03-17] MEDS ORDERED: LACTATED RINGERS 1,000 ML IV SCH (12:30)
[2020-03-17] MEDS ORDERED: LORazepam 1MG TABLET PO PRN ×3 (12:30)
[2020-03-17] MEDS ORDERED: BISACODYL 10 MG SUPP PR PRN (12:30)
[2020-03-17] MEDS ORDERED: ONDANSETRON 2MG/ML, 2ML IVPush PRN (12:30)
[2020-03-17] MEDS ORDERED: ONDANSETRON ODT 4 MG PO PRN (12:30)
[2020-03-17] MEDS ORDERED: LORazepam 2 MG/ML, 1ML IV PRN ×3 (12:30)
[2020-03-17] MEDS ORDERED: THIAMINE 200 MG in DEXTROSE 5% 50 ML IVPB ONE (13:00)
[2020-03-17] MEDS: PANTOPRAZOLE 40 MG IV IVPush SCH (13:41)
[2020-03-17] MEDS ORDERED: HALOPERIDOL 5 MG/ML IM ONE (22:00)
[2020-03-17] MEDS ORDERED: MVI ADULT 10 ML, THIAMINE 200 MG, FOLIC ACID 1 MG in SODIUM CHLORIDE 0.45% 1,000 ML IV SCH (23:00)
[2020-03-17] MEDS ORDERED: LACTULOSE 20 GM/30 ML UDC PO ONE (23:00)
[2020-03-17] MEDS: LORazepam 2 MG/ML, 1ML IV PRN (23:10)
[2020-03-18] MEDS: LORazepam 2 MG/ML, 1ML IV PRN (00:58)
[2020-03-18] MEDS ORDERED: HYDROmorphone 1 MG/ML, 1ML INJ ONE (01:22)
[2020-03-18] MEDS ORDERED: HYDROmorphone 1 MG/ML, 1ML INJ IV ONE (01:30)
[2020-03-18 02:06] VITALS: BP 118/63
[2020-03-18] MEDS: LACTULOSE 20 GM/30 ML UDC PO SCH ×3 (09:00→21:03)
[2020-03-18] MEDS ORDERED: MVI ADULT 10 ML, THIAMINE 200 MG, FOLIC ACID 1 MG in SODIUM CHLORIDE 0.45% 1,000 ML IV SCH (09:00)
[2020-03-18] MEDS: PANTOPRAZOLE 40 MG IV IVPush SCH (09:29)
[2020-03-18] MEDS: RIFAXIMIN 550 MG TABLET PO SCH ×2 (09:29→21:03)
[2020-03-18 10:08] LABS: ALANINE AMINOTRANSFERASE 52 U/L (12-78); ANION GAP 12 mmol/L (5-15); CALCIUM 7.2 mg/dL (8.5-10.1); CHLORIDE 105 mmol/L (98-107); CREATININE 0.64 mg/dL (0.55-1.02)
[2020-03-18 10:10] LABS: ALKALINE PHOSPHATASE 73 U/L (45-117); BILIRUBIN,TOTAL 5.9 mg/dL (0.2-1.0); TOTAL PROTEIN 4.9 g/dL (6.4-8.2)
[2020-03-18 10:24] LABS: BASOPHILS # (AUTO) 0.02 x10^3/uL (0-0.1); BASOPHILS % (AUTO) 0 % (0-1); EOSINOPHILS % (AUTO) 3 % (1-7); LYMPHOCYTES # (AUTO) 0.69 x10^3/uL (1-3.4); LYMPHOCYTES % (AUTO) 18 % (22-44); MD SCAN; MEAN CORPUSCULAR HEMOGLOBIN 31.8 pg (27.0-34.8); MEAN CORPUSCULAR HGB CONC 33.2 g/dL (32.4-35.8); MEAN CORPUSCULAR VOLUME 95.9 fL (80-100); MEAN PLATELET VOLUME 9.2 fL (7.4-10.4); MONOCYTES # (AUTO) 0.44 x10^3/uL (0.2-0.8); MONOCYTES % (AUTO) 11 % (2-9); NEUTROPHILS % (AUTO) 69 % (42-75); PLATELET COUNT 79 x10^3/uL (130-400); RED BLOOD COUNT 2.46 x10^6/uL (3.82-5.3); RED CELL DISTRIBUTION WIDTH 25.1 % (9.6-15.2)
[2020-03-18] MEDS ORDERED: GLUCAGON 1 MG IM PRN (11:30)
[2020-03-18] MEDS ORDERED: DEXTROSE 4 GM TAB.CHEW PO PRN (11:30)
[2020-03-18] MEDS ORDERED: DEXTROSE 50%, 50ML SYRINGE IVPush PRN (11:30)
[2020-03-18 12:13] VITALS: BP 105/58
[2020-03-18 13:22] VITALS: BP 115/67
[2020-03-18] MEDS ORDERED: THIAMINE IV SCH ×2 (16:00→23:00)
[2020-03-18] MEDS ORDERED: MVI ADULT IV SCH ×2 (16:00→23:00)
[2020-03-18] MEDS ORDERED: FOLIC ACID IV SCH ×2 (16:00→23:00)
[2020-03-18] MEDS ORDERED: [UNRECOGNIZED DRUG - OTHER] IV SCH ×2 (16:00→23:00)
[2020-03-18] MEDS ORDERED: POTASSIUM CHLORIDE IV SCH ×2 (16:00→23:00)
[2020-03-18] MEDS ORDERED: ACETAMINOPHEN 325 MG TABLET PO PRN (17:30)
[2020-03-18 18:21] LABS: AMPHETAMINE SCREEN, URINE Negative (Negative); BARBITURATE SCREEN, URINE Negative (Negative); BENZODIAZEPINE SCREEN, URINE Positive (Negative); CANNABINOID SCREEN, URINE Positive (Negative); COCAINE SCREEN, URINE Negative (Negative); METHADONE SCREEN, URINE Negative (Negative); OPIATE SCREEN, URINE Positive (Negative)
[2020-03-18] MEDS: SODIUM CHLORIDE FLUSH 10ML SYR IVF SCH (21:03)
[2020-03-18 21:10] VITALS: BP 128/79
[2020-03-18] MEDS: OXYcodone IR 5MG TABLET PO PRN (21:22)
[2020-03-18 21:53] LABS: MICROSCOPIC INDICATED
[2020-03-19 01:21] VITALS: BP 134/81
[2020-03-19] MEDS: INSULIN LISPRO 100 UNITS/ML, PEN SQ-INSULIN SCH ×7 (02:18→23:11)
[2020-03-19] MEDS: OXYcodone IR 5MG TABLET PO PRN ×3 (03:35→23:23)
[2020-03-19 04:57] LABS: CALCIUM 7.9 mg/dL (8.5-10.1); CHLORIDE 105 mmol/L (98-107)
[2020-03-19 05:01] LABS: MEAN CORPUSCULAR HEMOGLOBIN 31.8 pg (27.0-34.8); MEAN CORPUSCULAR HGB CONC 32.8 g/dL (32.4-35.8); MEAN CORPUSCULAR VOLUME 96.9 fL (80-100); MEAN PLATELET VOLUME 9.5 fL (7.4-10.4); PLATELET COUNT 109 x10^3/uL (130-400); RED BLOOD COUNT 3.29 x10^6/uL (3.82-5.3); RED CELL DISTRIBUTION WIDTH 25.5 % (9.6-15.2)
[2020-03-19 05:24] LABS: ALANINE AMINOTRANSFERASE 71 U/L (12-78); ALBUMIN 2.5 g/dL (3.4-5.0); ALKALINE PHOSPHATASE 114 U/L (45-117); ANION GAP 9 mmol/L (5-15); BILIRUBIN,TOTAL 6.4 mg/dL (0.2-1.0); CREATININE 0.98 mg/dL (0.55-1.02); TOTAL PROTEIN 6.3 g/dL (6.4-8.2)
[2020-03-19 06:04] LABS: BASOPHILS # (AUTO) 0.06 x10^3/uL (0-0.1); BASOPHILS % (AUTO) 1 % (0-1); EOSINOPHILS # (AUTO) 0.14 x10^3/uL (0-0.4); EOSINOPHILS % (AUTO) 2 % (1-7); LYMPHOCYTES # (AUTO) 0.89 x10^3/uL (1-3.4); LYMPHOCYTES % (AUTO) 13 % (22-44); MD SCAN; MONOCYTES # (AUTO) 0.79 x10^3/uL (0.2-0.8); MONOCYTES % (AUTO) 11 % (2-9); NEUTROPHILS # (AUTO) 5.04 x10^3/uL (1.8-6.8); NEUTROPHILS % (AUTO) 73 % (42-75)
[2020-03-19 06:28] VITALS: BP 129/71
[2020-03-19] MEDS ORDERED: GABAPENTIN 100 MG CAPSULE PO PRN (07:30)
[2020-03-19] MEDS: PLEASE ENTER ALLERGIES MC SCH ×3 (08:00→23:55)
[2020-03-19] MEDS: LACTULOSE 20 GM/30 ML UDC PO SCH ×3 (08:56→22:57)
[2020-03-19] MEDS: PANTOPRAZOLE 40MG TABLET PO SCH (08:56)
[2020-03-19] MEDS: SODIUM CHLORIDE FLUSH 10ML SYR IVF SCH ×2 (08:56→22:56)
[2020-03-19] MEDS: CEFTRIAXONE PMX 1GM/50ML 50 ML IV SCH (08:56)
[2020-03-19] MEDS: RIFAXIMIN 550 MG TABLET PO SCH ×2 (09:05→22:56)
[2020-03-19] MEDS ORDERED: SPIR100T PO (09:57)
[2020-03-19] MEDS ORDERED: OXYcodone IR 5MG TABLET PO PRN (10:00)
[2020-03-19] MEDS: SPIRONOLACTONE 100 MG TABLET PO SCH (11:03)
[2020-03-19] MEDS: FERROUS SULFATE 325 MG TABLET PO SCH (11:03)
[2020-03-19] MEDS: FOLIC ACID 1 MG TABLET PO SCH (11:04)
[2020-03-19] MEDS: THIAMINE 100MG TABLET PO SCH ×2 (11:04→22:56)
[2020-03-19] MEDS: INSULIN GLARGINE 100 UNITS/ML, PEN SQ-INSULIN SCH ×2 (11:04→23:12)
[2020-03-19] MEDS: MULTIVITAMIN 1 TABLET PO SCH (11:04)
[2020-03-19] MEDS: LIDODERM 5% PATCH TD SCH (11:05)
[2020-03-19] MEDS ORDERED: GABA-827 PO (11:50)
[2020-03-19] MEDS ORDERED: HYDR50CA2 PO (11:50)
[2020-03-19] MEDS ORDERED: TIZA4TAB2 PO (11:50)
[2020-03-19] MEDS ORDERED: DULO30CA44 PO (11:50)
[2020-03-19] MEDS ORDERED: TRAZ-175 PO (11:50)
[2020-03-19] MEDS ORDERED: METH500T7 PO (11:50)
[2020-03-19] MEDS ORDERED: INSU100V8 SQ (11:50)
[2020-03-19 14:38] VITALS: BP 152/95
[2020-03-19] MEDS: GABAPENTIN 400 MG CAPSULE PO SCH ×2 (15:41→22:57)
[2020-03-19] MEDS: HYDROXYZINE PAMOATE 50MG CAP PO PRN ×2 (15:41→19:26)
[2020-03-19 22:53] VITALS: BP 132/87
[2020-03-19] MEDS: DULOXETINE 30 MG CAPSULE.DR PO SCH (22:56)
[2020-03-19] MEDS: METHOCARBAMOL 500 MG TABLET PO PRN (23:23)
[2020-03-20 02:22] VITALS: BP 131/84
[2020-03-20] MEDS: HYDROXYZINE PAMOATE 50MG CAP PO PRN ×3 (04:23→19:31)
[2020-03-20 05:29] LABS: MEAN CORPUSCULAR HEMOGLOBIN 31.9 pg (27.0-34.8); MEAN CORPUSCULAR HGB CONC 32.7 g/dL (32.4-35.8); MEAN CORPUSCULAR VOLUME 97.6 fL (80-100); MEAN PLATELET VOLUME 9.2 fL (7.4-10.4); PLATELET COUNT 102 x10^3/uL (130-400); RED BLOOD COUNT 2.96 x10^6/uL (3.82-5.3); RED CELL DISTRIBUTION WIDTH 25.4 % (9.6-15.2)
[2020-03-20 05:31] LABS: ALANINE AMINOTRANSFERASE 57 U/L (12-78); ALBUMIN 2.3 g/dL (3.4-5.0); ANION GAP 4 mmol/L (5-15); CHLORIDE 111 mmol/L (98-107)
[2020-03-20 05:33] LABS: ALKALINE PHOSPHATASE 149 U/L (45-117); BILIRUBIN,TOTAL 4.8 mg/dL (0.2-1.0); CREATININE 0.73 mg/dL (0.55-1.02); TOTAL PROTEIN 5.7 g/dL (6.4-8.2)
[2020-03-20] MEDS: OXYcodone IR 5MG TABLET PO PRN ×4 (05:33→23:19)
[2020-03-20 05:59] LABS: BASOPHILS # (AUTO) 0.08 x10^3/uL (0-0.1); BASOPHILS % (AUTO) 1 % (0-1); EOSINOPHILS # (AUTO) 0.23 x10^3/uL (0-0.4); EOSINOPHILS % (AUTO) 3 % (1-7); LYMPHOCYTES # (AUTO) 0.78 x10^3/uL (1-3.4); LYMPHOCYTES % (AUTO) 11 % (22-44); MD SCAN; MONOCYTES # (AUTO) 0.85 x10^3/uL (0.2-0.8); MONOCYTES % (AUTO) 13 % (2-9); NEUTROPHILS % (AUTO) 72 % (42-75)
[2020-03-20 07:23] VITALS: BP 150/95
[2020-03-20] MEDS: INSULIN LISPRO 100 UNITS/ML, PEN SQ-INSULIN SCH ×4 (07:42→21:15)
[2020-03-20] MEDS: CEFTRIAXONE PMX 1GM/50ML 50 ML IV SCH (07:44)
[2020-03-20] MEDS: PLEASE ENTER ALLERGIES MC SCH (07:44)
[2020-03-20] MEDS: ONDANSETRON 2MG/ML, 2ML IVPush PRN (08:55)
[2020-03-20] MEDS: GABAPENTIN 400 MG CAPSULE PO SCH ×3 (08:57→21:13)
[2020-03-20] MEDS: FOLIC ACID 1 MG TABLET PO SCH (08:57)
[2020-03-20] MEDS: DULOXETINE 30 MG CAPSULE.DR PO SCH ×2 (08:58→21:13)
[2020-03-20] MEDS: MULTIVITAMIN 1 TABLET PO SCH (08:58)
[2020-03-20] MEDS: SPIRONOLACTONE 100 MG TABLET PO SCH (08:58)
[2020-03-20] MEDS: FERROUS SULFATE 325 MG TABLET PO SCH (08:58)
[2020-03-20] MEDS: PANTOPRAZOLE 40MG TABLET PO SCH (08:58)
[2020-03-20] MEDS: THIAMINE 100MG TABLET PO SCH ×2 (08:58→21:13)
[2020-03-20] MEDS: LACTULOSE 20 GM/30 ML UDC PO SCH ×3 (08:58→21:13)
[2020-03-20] MEDS: INSULIN GLARGINE 100 UNITS/ML, PEN SQ-INSULIN SCH (08:58)
[2020-03-20] MEDS: LIDODERM 5% PATCH TD SCH (08:59)
[2020-03-20] MEDS: SODIUM CHLORIDE FLUSH 10ML SYR IVF SCH ×2 (09:00→21:16)
[2020-03-20] MEDS: RIFAXIMIN 550 MG TABLET PO SCH ×2 (09:07→21:13)
[2020-03-20] MEDS: METHOCARBAMOL 500 MG TABLET PO PRN (09:07)
[2020-03-20] MEDS ORDERED: PLEASE ENTER ALLERGIES MC SCH (11:00)
[2020-03-20] MEDS: METHOCARBAMOL 500 MG TABLET PO SCH ×3 (11:02→23:19)
[2020-03-20] MEDS: AMPICILLIN 1 GM in SODIUM CHLORIDE 0.9% 100 ML IV SCH ×2 (12:19→19:24)
[2020-03-20] MEDS ORDERED: METOCLOPRAMIDE 5 MG/ML, 2ML IVPush PRN (12:30)
[2020-03-20 13:39] VITALS: BP 148/97
[2020-03-20 19:19] VITALS: BP 154/87
[2020-03-20] MEDS ORDERED: INSULIN GLARGINE 100 UNITS/ML, PEN SQ-INSULIN SCH (21:00)
[2020-03-20] MEDS: NICOTINE 14MG/24 HR PATCH.TD24 TD SCH (21:47)
[2020-03-21 01:06] VITALS: BP 145/85
[2020-03-21] MEDS: AMPICILLIN 1 GM in SODIUM CHLORIDE 0.9% 100 ML IV SCH ×4 (01:36→20:05)
[2020-03-21] MEDS: HYDROXYZINE PAMOATE 50MG CAP PO PRN (03:22)
[2020-03-21] MEDS: OXYcodone IR 5MG TABLET PO PRN ×3 (05:25→20:25)
[2020-03-21] MEDS: METHOCARBAMOL 500 MG TABLET PO SCH ×4 (05:25→22:49)
[2020-03-21 06:46] VITALS: BP 159/97
[2020-03-21] MEDS: INSULIN LISPRO 100 UNITS/ML, PEN SQ-INSULIN SCH ×4 (08:18→21:36)
[2020-03-21] MEDS: ONDANSETRON 2MG/ML, 2ML IVPush PRN (08:19)
[2020-03-21] MEDS: FUROSEMIDE 40 MG TABLET PO SCH ×2 (08:21→16:19)
[2020-03-21] MEDS: THIAMINE 100MG TABLET PO SCH ×2 (08:21→21:38)
[2020-03-21] MEDS: GABAPENTIN 400 MG CAPSULE PO SCH ×3 (08:21→21:37)
[2020-03-21] MEDS: FOLIC ACID 1 MG TABLET PO SCH (08:22)
[2020-03-21] MEDS: SPIRONOLACTONE 100 MG TABLET PO SCH (08:22)
[2020-03-21] MEDS: DULOXETINE 30 MG CAPSULE.DR PO SCH ×2 (08:22→21:38)
[2020-03-21] MEDS: LACTULOSE 20 GM/30 ML UDC PO SCH ×3 (08:22→21:37)
[2020-03-21] MEDS: LIDODERM 5% PATCH TD SCH (08:22)
[2020-03-21] MEDS: MULTIVITAMIN 1 TABLET PO SCH (08:22)
[2020-03-21] MEDS: FERROUS SULFATE 325 MG TABLET PO SCH (08:22)
[2020-03-21] MEDS: RIFAXIMIN 550 MG TABLET PO SCH ×2 (08:22→21:37)
[2020-03-21] MEDS: PANTOPRAZOLE 40MG TABLET PO SCH (08:22)
[2020-03-21] MEDS: SODIUM CHLORIDE FLUSH 10ML SYR IVF SCH ×2 (08:41→21:38)
[2020-03-21] MEDS ORDERED: INSULIN GLARGINE 100 UNITS/ML, PEN SQ-INSULIN SCH ×2 (09:00→21:00)
[2020-03-21 15:59] VITALS: BP 135/86
[2020-03-21 20:25] VITALS: BP 148/95
[2020-03-21] MEDS: TRAZODONE 100MG TABLET PO SCH ×2 (21:37→23:51)
[2020-03-21] MEDS: NICOTINE 14MG/24 HR PATCH.TD24 TD SCH (21:37)
[2020-03-22 00:14] VITALS: BP 145/91
[2020-03-22] MEDS: AMPICILLIN 1 GM in SODIUM CHLORIDE 0.9% 100 ML IV SCH ×4 (02:04→23:32)
[2020-03-22] MEDS: METHOCARBAMOL 500 MG TABLET PO SCH ×4 (05:52→23:31)
[2020-03-22 09:20] VITALS: BP 140/86
[2020-03-22] MEDS: INSULIN LISPRO 100 UNITS/ML, PEN SQ-INSULIN SCH ×4 (09:59→22:10)
[2020-03-22] MEDS: INSULIN GLARGINE 100 UNITS/ML, PEN SQ-INSULIN SCH ×2 (10:00→22:10)
[2020-03-22] MEDS: LIDODERM 5% PATCH TD SCH (10:01)
[2020-03-22] MEDS: SPIRONOLACTONE 100 MG TABLET PO SCH (10:01)
[2020-03-22] MEDS: LACTULOSE 20 GM/30 ML UDC PO SCH ×3 (10:01→22:11)
[2020-03-22] MEDS: FERROUS SULFATE 325 MG TABLET PO SCH (10:01)
[2020-03-22] MEDS: DULOXETINE 30 MG CAPSULE.DR PO SCH ×2 (10:02→22:11)
[2020-03-22] MEDS: FUROSEMIDE 40 MG TABLET PO SCH ×2 (10:02→17:33)
[2020-03-22] MEDS: FOLIC ACID 1 MG TABLET PO SCH (10:02)
[2020-03-22] MEDS: GABAPENTIN 400 MG CAPSULE PO SCH ×3 (10:02→22:11)
[2020-03-22] MEDS: THIAMINE 100MG TABLET PO SCH ×2 (10:02→22:11)
[2020-03-22] MEDS: MULTIVITAMIN 1 TABLET PO SCH (10:02)
[2020-03-22] MEDS: PANTOPRAZOLE 40MG TABLET PO SCH (10:02)
[2020-03-22] MEDS: OXYcodone IR 5MG TABLET PO PRN ×3 (11:12→23:36)
[2020-03-22] MEDS: RIFAXIMIN 550 MG TABLET PO SCH ×2 (12:45→23:31)
[2020-03-22] MEDS: SODIUM CHLORIDE FLUSH 10ML SYR IVF SCH ×2 (12:45→22:11)
[2020-03-22] MEDS: ONDANSETRON 2MG/ML, 2ML IVPush PRN (12:45)
[2020-03-22] MEDS: HYDROXYZINE PAMOATE 50MG CAP PO PRN (12:56)
[2020-03-22 15:05] VITALS: BP 138/87
[2020-03-22 19:57] VITALS: BP 125/72
[2020-03-22] MEDS ORDERED: INSULIN GLARGINE 100 UNITS/ML, PEN SQ-INSULIN SCH (21:00)
[2020-03-22] MEDS: NICOTINE 14MG/24 HR PATCH.TD24 TD SCH (22:11)
[2020-03-22] MEDS: TRAZODONE 100MG TABLET PO SCH (23:32)
[2020-03-23] MEDS: HYDROXYZINE PAMOATE 50MG CAP PO PRN ×3 (00:15→21:20)
[2020-03-23 02:30] VITALS: BP 122/75
[2020-03-23 05:47] LABS: INTERNATIONAL NORMALIZED RATIO 1.32 (0.93-1.1)
[2020-03-23] MEDS: METHOCARBAMOL 500 MG TABLET PO SCH ×3 (06:13→20:08)
[2020-03-23] MEDS: INSULIN LISPRO 100 UNITS/ML, PEN SQ-INSULIN SCH ×3 (07:00→21:21)
[2020-03-23] MEDS: ONDANSETRON 2MG/ML, 2ML IVPush PRN ×3 (08:28→23:02)
[2020-03-23] MEDS: OXYcodone IR 5MG TABLET PO PRN ×3 (08:58→21:20)
[2020-03-23] MEDS: PANTOPRAZOLE 40MG TABLET PO SCH (08:58)
[2020-03-23] MEDS: RIFAXIMIN 550 MG TABLET PO SCH ×2 (09:00→21:32)
[2020-03-23] MEDS: SODIUM CHLORIDE FLUSH 10ML SYR IVF SCH ×2 (09:00→21:33)
[2020-03-23] MEDS: INSULIN GLARGINE 100 UNITS/ML, PEN SQ-INSULIN SCH ×2 (09:00→21:22)
[2020-03-23 09:27] VITALS: BP 100/46
[2020-03-23] MEDS ORDERED: LIDOCAINE 1%, 20ML ONE (09:37)
[2020-03-23] MEDS ORDERED: FENTANYL PF 100 MCG/2ML ONE (10:06)
[2020-03-23] MEDS ORDERED: FLUMAZENIL 0.1 MG/1 ML, 5ML ONE (10:07)
[2020-03-23] MEDS ORDERED: NALOXONE 1 MG/ML, 2ML ONE (10:07)
[2020-03-23] MEDS ORDERED: MIDAZOLAM 1 MG/ML, 5ML ONE (10:07)
[2020-03-23] MEDS: SPIRONOLACTONE 100 MG TABLET PO SCH (13:48)
[2020-03-23] MEDS: FOLIC ACID 1 MG TABLET PO SCH (13:48)
[2020-03-23] MEDS: FERROUS SULFATE 325 MG TABLET PO SCH (13:48)
[2020-03-23] MEDS: LACTULOSE 20 GM/30 ML UDC PO SCH ×3 (13:48→21:10)
[2020-03-23] MEDS: GABAPENTIN 400 MG CAPSULE PO SCH ×3 (13:48→21:10)
[2020-03-23] MEDS: DULOXETINE 30 MG CAPSULE.DR PO SCH ×2 (13:48→21:10)
[2020-03-23] MEDS: LIDODERM 5% PATCH TD SCH (13:49)
[2020-03-23] MEDS: FUROSEMIDE 40 MG TABLET PO SCH ×2 (13:49→17:14)
[2020-03-23] MEDS: MULTIVITAMIN 1 TABLET PO SCH (13:49)
[2020-03-23] MEDS: THIAMINE 100MG TABLET PO SCH ×2 (13:49→21:10)
[2020-03-23 15:04] VITALS: BP 136/74
[2020-03-23 19:27] VITALS: BP 143/91
[2020-03-23] MEDS: NICOTINE 14MG/24 HR PATCH.TD24 TD SCH (21:20)
[2020-03-23] MEDS: LIDODERM REMOVE PATCH NOTE XX SCH (22:00)
[2020-03-23] MEDS ORDERED: OXYcodone 5 MG/5 ML ORAL.SOL UDC PO PRN (23:00)
[2020-03-24 00:02] VITALS: BP 129/77
[2020-03-24] MEDS: TRAZODONE 100MG TABLET PO SCH (00:05)
[2020-03-24] MEDS: OXYcodone IR 5MG TABLET PO PRN ×4 (01:34→20:10)
[2020-03-24] MEDS: METHOCARBAMOL 500 MG TABLET PO SCH ×4 (02:42→20:18)
[2020-03-24 07:06] VITALS: BP 145/92
[2020-03-24] MEDS: THIAMINE 100MG TABLET PO SCH ×2 (07:50→20:09)
[2020-03-24] MEDS: FERROUS SULFATE 325 MG TABLET PO SCH (07:50)
[2020-03-24] MEDS: LACTULOSE 20 GM/30 ML UDC PO SCH ×3 (07:50→20:11)
[2020-03-24] MEDS: GABAPENTIN 400 MG CAPSULE PO SCH ×3 (07:50→20:09)
[2020-03-24] MEDS: FUROSEMIDE 40 MG TABLET PO SCH ×2 (07:50→16:59)
[2020-03-24] MEDS: MULTIVITAMIN 1 TABLET PO SCH (07:50)
[2020-03-24] MEDS: PANTOPRAZOLE 40MG TABLET PO SCH (07:50)
[2020-03-24] MEDS: FOLIC ACID 1 MG TABLET PO SCH (07:50)
[2020-03-24] MEDS: DULOXETINE 30 MG CAPSULE.DR PO SCH ×2 (07:50→20:09)
[2020-03-24] MEDS: SPIRONOLACTONE 100 MG TABLET PO SCH (07:50)
[2020-03-24] MEDS: SODIUM CHLORIDE FLUSH 10ML SYR IVF SCH ×2 (07:51→20:19)
[2020-03-24] MEDS: INSULIN LISPRO 100 UNITS/ML, PEN SQ-INSULIN SCH ×4 (07:54→21:01)
[2020-03-24] MEDS: RIFAXIMIN 550 MG TABLET PO SCH ×2 (08:06→20:08)
[2020-03-24] MEDS: HYDROXYZINE PAMOATE 50MG CAP PO PRN ×2 (08:06→16:59)
[2020-03-24] MEDS: LIDODERM 5% PATCH TD SCH (08:07)
[2020-03-24] MEDS: INSULIN GLARGINE 100 UNITS/ML, PEN SQ-INSULIN SCH ×2 (10:23→21:02)
[2020-03-24 15:43] VITALS: BP 112/70
[2020-03-24 19:39] VITALS: BP 139/83
[2020-03-24] MEDS: NICOTINE 14MG/24 HR PATCH.TD24 TD SCH (20:11)
[2020-03-24] MEDS: LIDODERM REMOVE PATCH NOTE XX SCH (22:00)
[2020-03-25] MEDS: TRAZODONE 100MG TABLET PO SCH (00:05)
[2020-03-25] MEDS: OXYcodone IR 5MG TABLET PO PRN ×2 (00:11→09:56)
[2020-03-25 01:26] VITALS: BP 157/104
[2020-03-25 01:37] VITALS: BP 133/84
[2020-03-25] MEDS: METHOCARBAMOL 500 MG TABLET PO SCH ×2 (02:34→09:56)
[2020-03-25] MEDS: INSULIN LISPRO 100 UNITS/ML, PEN SQ-INSULIN SCH (07:58)
[2020-03-25] MEDS: INSULIN GLARGINE 100 UNITS/ML, PEN SQ-INSULIN SCH (07:58)
[2020-03-25] MEDS ORDERED: NICO-485 TD (09:50)
[2020-03-25] MEDS ORDERED: RIFA550T4 PO (09:50)
[2020-03-25] MEDS ORDERED: GABA-827 PO (09:50)
[2020-03-25] MEDS ORDERED: PANT40TA3 PO (09:50)
[2020-03-25] MEDS ORDERED: POTA20TA6 PO (09:50)
[2020-03-25] MEDS ORDERED: LACT20SO13 PO (09:50)
[2020-03-25] MEDS ORDERED: INSU100V8 SQ (09:50)
[2020-03-25] MEDS ORDERED: HYDR50CA2 PO (09:50)
[2020-03-25] MEDS ORDERED: TRAZ-175 PO (09:50)
[2020-03-25] MEDS ORDERED: FERR324T5 PO (09:50)
[2020-03-25] MEDS ORDERED: METH500T7 PO (09:50)
[2020-03-25] MEDS ORDERED: DULO30CA44 PO (09:50)
[2020-03-25] MEDS ORDERED: FOLI-17 PO (09:50)
[2020-03-25] MEDS ORDERED: MULT-449 PO (09:50)
[2020-03-25] MEDS ORDERED: SPIR100T PO (09:50)
[2020-03-25] MEDS ORDERED: FURO40TA6 PO (09:50)
[2020-03-25] MEDS ORDERED: THIA100T67 PO (09:50)
[2020-03-25] MEDS: THIAMINE 100MG TABLET PO SCH (09:55)
[2020-03-25] MEDS: PANTOPRAZOLE 40MG TABLET PO SCH (09:55)
[2020-03-25] MEDS: RIFAXIMIN 550 MG TABLET PO SCH (09:55)
[2020-03-25] MEDS: FOLIC ACID 1 MG TABLET PO SCH (09:55)
[2020-03-25] MEDS: GABAPENTIN 400 MG CAPSULE PO SCH (09:55)
[2020-03-25] MEDS: SPIRONOLACTONE 100 MG TABLET PO SCH (09:55)
[2020-03-25] MEDS: LIDODERM 5% PATCH TD SCH ×2 (09:55→11:34)
[2020-03-25] MEDS: LACTULOSE 20 GM/30 ML UDC PO SCH (09:55)
[2020-03-25] MEDS: FUROSEMIDE 40 MG TABLET PO SCH (09:56)
[2020-03-25] MEDS: HYDROXYZINE PAMOATE 50MG CAP PO PRN (09:56)
[2020-03-25] MEDS: MULTIVITAMIN 1 TABLET PO SCH (09:56)
[2020-03-25] MEDS: FERROUS SULFATE 325 MG TABLET PO SCH (09:56)
[2020-03-25] MEDS: SODIUM CHLORIDE FLUSH 10ML SYR IVF SCH (09:56)
[2020-03-25] MEDS: DULOXETINE 30 MG CAPSULE.DR PO SCH (09:56)
== END 2020-03-25 12:34 | disposition hospice, home (50) | DRG 441 ==
LOC: ED 10:06 → EDIP 11:38 → 4NE 11:40 → 3N 03-18 18:57
PROVIDERS: ADMIT Internal Medicine; ATTEND Internal Medicine
PROC: 4A10X4Z Monitoring of Central Nervous Electrical Activity, External Approach (ICD-10-PCS; principal; 2020-03-18)
PROC: 0W9G3ZZ Drainage of Peritoneal Cavity, Percutaneous Approach (ICD-10-PCS; 2020-03-20)
PROC: 0JH63XZ Insertion of Tunneled Vascular Access Device into Chest Subcutaneous Tissue and Fascia, Percutaneous Approach (ICD-10-PCS; 2020-03-23)
DX: K72.90 Hepatic failure, unspecified without coma (principal); N17.0 Acute kidney failure with tubular necrosis; E43 Unspecified severe protein-calorie malnutrition; E87.2 Acidosis; F10.239 Alcohol dependence with withdrawal, unspecified; N39.0 Urinary tract infection, site not specified; R56.9 Unspecified convulsions; D64.9 Anemia, unspecified; E80.6 Other disorders of bilirubin metabolism; R41.0 Disorientation, unspecified; Y90.0 Blood alcohol level of less than 20 mg/100 ml; E11.65 Type 2 diabetes mellitus with hyperglycemia; E11.649 Type 2 diabetes mellitus with hypoglycemia without coma; Z51.5 Encounter for palliative care; G89.29 Other chronic pain; K70.31 Alcoholic cirrhosis of liver with ascites; Z88.1 Allergy status to other antibiotic agents
CPT/HCPCS: 36415; 36600; 99285; J3490; J7042; 49083; 49418; 70450; 76700; 80053; 80307; 81001; 82010; 82140; 82803; 82947; 82962; 83036; 83605; 83735; 84100; 84703; 85025; 85610; 87040; 87077; 87086; 87186; 95819; 99156; 99157; G0378; J0290; J0696; J1170; J2250; J2405; J3010; J3411; J3480; J3486; C1729; C9113; J1630; J1815; J2060; J2310; J2765; J7030; J7120